=== PATIENT | female | born 1975 | race Caucasian/White ===

== ENCOUNTER 2023-02-17 09:30 | Outpatient (OUT) | payer OTHER, SELFPAY ==
--- NOTE | 2023-02-17 09:26 | XR_ITS ---
The [address] [address] Patient Name: EDMOND OROSCO MRN: [id number] date: 1975 Sex: F Assigned Patient Location: [facility] Current Patient Location: [facility] Accession/Order Number: [id number] Exam Date: 02/17/2023 09:26 Report Date: 02/17/2023 14:17 At the request of: CAREY SUTTON Procedure: XR ankle LT min 3V PROCEDURE: XR ankle LT min 3V, XR foot LT min 3V HISTORY: LEFT ANKLE PAIN ; lateral ankle and foot pain; no known injury COMPARISON: None. FINDINGS: BONES:Uniform, smooth appearance of the ankle joint. Mild degenerative changes of the tarsal-metatarsal joints. Prominent plantar arch. SOFT TISSUES:Small calcifications plantar-lateral to the cuboid; accessory ossicles versus sequela of remote injury. EFFUSION:None visible. OTHER: Negative. IMPRESSION: 1. No acute bone abnormality of the left ankle or foot. 2. Mild degenerative changes of the midfoot and prominent plantar arch. Electronically authenticated by: YASMINE TRUIJLLO Date: 02/17/2023 14:17
--- NOTE | 2023-02-17 09:26 | XR_ITS ---
The [address] [address] Patient Name: EDMOND OROSCO MRN: [id number] date: 1975 Sex: F Assigned Patient Location: [facility] Current Patient Location: [facility] Accession/Order Number: [id number] Exam Date: 02/17/2023 09:26 Report Date: 02/17/2023 14:17 At the request of: CAREY SUTTON Procedure: XR foot LT min 3V PROCEDURE: XR ankle LT min 3V, XR foot LT min 3V HISTORY: LEFT ANKLE PAIN ; lateral ankle and foot pain; no known injury COMPARISON: None. FINDINGS: BONES:Uniform, smooth appearance of the ankle joint. Mild degenerative changes of the tarsal-metatarsal joints. Prominent plantar arch. SOFT TISSUES:Small calcifications plantar-lateral to the cuboid; accessory ossicles versus sequela of remote injury. EFFUSION:None visible. OTHER: Negative. IMPRESSION: 1. No acute bone abnormality of the left ankle or foot. 2. Mild degenerative changes of the midfoot and prominent plantar arch. Electronically authenticated by: YASMINE TRUJILLO Date: 02/17/2023 14:17
== END 2023-02-17 09:31 ==
LOC: RAD 02-22 10:20
PROVIDERS: Family Provider Family Medicine; PCP Physician Assistant; Visit Provider Physician Assistant
DX: M25.572 Pain in left ankle and joints of left foot (principal)
CPT/HCPCS: 73610; 73630

== ENCOUNTER 2023-08-18 13:24 | Outpatient (OUT) | payer OTHER, SELFPAY ==
--- NOTE | 2023-08-18 | XR_ITS ---
The [address] [address] Patient Name: EDMOND OROSCO MRN: [id number] date: 1975 Sex: F Assigned Patient Location: [facility] Current Patient Location: Accession/Order Number: [id number] Exam Date: 08/18/2023 13:40 Report Date: 08/19/2023 01:46 At the request of: CAREY SUTTON Procedure: XR ankle LT min 3V PROCEDURE: XR ankle LT min 3V, XR foot LT min 3V HISTORY: LEFT ANKLE PAIN , lateral left foot pain COMPARISON: XR left ankle and foot 02/17/2023 FINDINGS: BONES:Stable tiny 2 mm ossification adjacent tip of lateral malleolus favoring sequela of remote injury/heterotopic bone formation. No acute fracture or healing fracture. No significant degenerative joint disease of the ankle joint or foot. SOFT TISSUES:No visible soft tissue swelling. EFFUSION:None visible. OTHER: Negative. XR/XR ankle LT min 3V IMPRESSION: 1. No acute or suspicious findings to account for patient's symptoms. Electronically authenticated by: YASMINE TRUJILLO Date: 08/19/2023 01:46
--- NOTE | 2023-08-18 | XR_ITS ---
The [address] [address] Patient Name: EDMOND OROSCO MRN: [id number] date: 1975 Sex: F Assigned Patient Location: [facility] Current Patient Location: Accession/Order Number: [id number] Exam Date: 08/18/2023 13:40 Report Date: 08/19/2023 01:46 At the request of: CAREY SUTTON Procedure: XR foot LT min 3V PROCEDURE: XR ankle LT min 3V, XR foot LT min 3V HISTORY: LEFT ANKLE PAIN , lateral left foot pain COMPARISON: XR left ankle and foot 02/17/2023 FINDINGS: BONES:Stable tiny 2 mm ossification adjacent tip of lateral malleolus favoring sequela of remote injury/heterotopic bone formation. No acute fracture or healing fracture. No significant degenerative joint disease of the ankle joint or foot. SOFT TISSUES:No visible soft tissue swelling. EFFUSION:None visible. OTHER: Negative. XR/XR foot LT min 3V IMPRESSION: 1. No acute or suspicious findings to account for patient's symptoms. Electronically authenticated by: YASMINE TRUJILLO Date: 08/19/2023 01:46
== END 2023-08-18 13:25 | disposition home or self-care (01) ==
LOC: RAD 13:24
PROVIDERS: Family Provider Family Medicine; Visit Provider Podiatrist Foot & Ankle Surgery
DX: M25.572 Pain in left ankle and joints of left foot (principal); S93.492S Sprain of other ligament of left ankle, sequela
CPT/HCPCS: 73610; 73630

== ENCOUNTER 2024-02-08 09:05 | Outpatient (OUT) | payer OTHER, SELFPAY ==
--- NOTE | 2024-02-08 09:09 | ECG_ITS ---
The [facility] Test Date: 2024-02-08 Pat Name: JAVIER OROSCO Department: Room: - Gender: Female [employer]: : 1975 Requested By: CAREY SUTTON Order Number: [id number] Reading MD: DOC ALVAREZ Measurements Intervals [place] Rate: 70 P: 55 PA: 139 QRS: 47 QRSD: 90 T: 28 QT: 391 QTc: 424 Interpretive Statements SINUS RHYTHM No previous ECG available for comparison Electronically Signed On 02-09-2024 6:51:20 EDT by DOC ALVAREZ
--- NOTE | 2024-02-08 09:43 | PM.PRESUREVA ---
History of Present Illness History of Present Illness Chief complaint: PRE ADMIT TESTING Narrative: Patient presents for preadmission testing. The patient reports a long history of left ankle and foot pain with some instability. She states she does use her brace daily and has gone through physical therapy. 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 The patient states she takes meloxicam daily to help with her discomfort. She denies numbness, tingling, weakness, or any other complaints. Review of Systems ROS Narrative REVIEW OF SYSTEMS: Negative except as stated in HPI, ten or more systems reviewed. Constitutional: No fever, chills, weakness ENT: No sore throat or epistaxis Cardiovascular: No edema, chest pain, palpitations, or activity intolerance Respiratory: No shortness of breath, cough, or wheezing Gastrointestinal: No abdominal pain, constipation, diarrhea, or vomiting Genitourinary: No dysuria or hematuria Neurological: No numbness, tingling, weakness, or headache Psychiatric: No mood changes [facility] Medical History (Updated 02/08/24 @ 09:25 by Nabila Perkins NP) Anxiety ?F41.9 - Anxiety disorder, unspecified (ICD-10) ADHD ?F90.9 - Attention-deficit hyperactivity disorder, unspecified type (ICD-10) COVID-19 ?U07.1 - COVID-19 (ICD-10) Heartburn ?R12 - Heartburn (ICD-10) Postoperative nausea and vomiting ?R11.2 - Nausea with vomiting, unspecified (ICD-10) ?Z98.890 - Other specified postprocedural states (ICD-10) Frozen shoulder ?M75.00 - Adhesive capsulitis of unspecified shoulder (ICD-10) Left foot pain ?M79.672 - Pain in left foot (ICD-10) Left ankle pain ?M25.572 - Pain in left ankle and joints of left foot (ICD-10) Contracture, left ankle ?M24.572 - Contracture, left ankle (ICD-10) Strain of muscle(s) and tendon(s) of peroneal muscle group at lower leg level, left leg, sequela ?S86.312S - Strain of muscle(s) and tendon(s) of peroneal muscle group at lower leg level, left leg, sequela (ICD-10) Ankle instability ?M25.373 - Other instability, unspecified ankle (ICD-10) Sprain of left ankle ?S93.402A - Sprain of unspecified ligament of left ankle, initial encounter (ICD-10) Plantar fascial fibromatosis ?M72.2 - Plantar fascial fibromatosis (ICD-10) Muscle disorder ?M62.9 - Disorder of muscle, unspecified (ICD-10) Valgus deformity, not elsewhere classified, left ankle ?M21.072 - Valgus deformity, not elsewhere classified, left ankle (ICD-10) Acquired deformity of left lower leg ?M21.962 - Unspecified acquired deformity of left lower leg (ICD-10) Varus deformity, not elsewhere classified, left ankle ?M21.172 - Varus deformity, not elsewhere classified, left ankle (ICD-10) Surgical History (Updated 02/08/24 @ 09:25 by Nabila Perkins NP) History of arthroscopy of shoulder ?Z98.890 - Other specified postprocedural states (ICD-10) History of tubal ligation ?Z98.51 - Tubal ligation status (ICD-10) History of appendectomy ?Z90.49 - Acquired absence of other specified parts of digestive tract (ICD-10) Family History (Updated 02/08/24 @ 09:28 by Nabila Perkins NP) Other Family history of DVT Family history of diabetes mellitus Family history of hypertension Family history of myocardial infarction Social History (Updated 02/08/24 @ 09:21 by Nabila Perkins NP) Within the past year, how often did you have a drink containing alcohol: 2-4 times a month Smoking status: Never smoker Non-prescribed substance use: denies use 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, 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 Highest level of school completed/degree received: high school graduate Meds Home Medications and Allergies Home Medications ?Medication ?Instructions ?Recorded ?Confirmed ?Type dextroamphetamine-amphetamine 10 10 mg PO DAILY PRN for focus 02/08/24 02/08/24 History mg tablet meloxicam 15 mg tablet 15 mg PO DAILY 02/08/24 02/08/24 History venlafaxine 150 mg 150 mg PO DAILY 02/08/24 02/08/24 History capsule,extended release 24 hr Allergies Allergy/AdvReac Type Severity Reaction Status Date / Time Sulfa (Sulfonamide Allergy Hives Verified 02/08/24 09:18 Antibiotics) Exam Narrative Exam Narrative: Constitutional: Awake, alert, comfortable, well-appearing, nontoxic, interactive, vital signs as charted Head: Normocephalic, atraumatic Neck: Supple, normal appearance, normal range of motion, no meningeal signs, no lymphadenopathy Respiratory: No respiratory distress, breath sounds clear Cardiovascular: Regular rate and rhythm, strong and regular heart tones Musculoskeletal: Ankle brace in place left ankle, tenderness with palpation along the lateral aspect of the left ankle, good capillary refill, sensation intact Skin: No rashes or induration, no lesions, only visible skin inspected Neuro: No neurological deficits, normal sensation Psychiatric: Oriented ?3, normal affect Assessment and Plan Assessment and Plan (1) Varus deformity, not elsewhere classified, left ankle: (2) Acquired deformity of left lower leg: (3) Valgus deformity, not elsewhere classified, left ankle: (4) Muscle disorder: (5) Plantar fascial fibromatosis: (6) Sprain of left ankle: (7) Ankle instability: (8) Strain of muscle(s) and tendon(s) of peroneal muscle group at lower leg level, left leg, sequela: (9) Contracture, left ankle: (10) Left ankle pain: (11) Left foot pain: Plan Left foot reconstruction with osteotomies, soft tissue balancing, tendon or ligament repairs, and bone graft as needed scheduled with Dr. Townsend February 17, 2024.
== END 2024-02-08 09:06 | disposition home or self-care (01) ==
PROVIDERS: Family Provider Family Medicine; Visit Provider Podiatrist Foot & Ankle Surgery
DX: Z01.810 Encounter for preprocedural cardiovascular examination (principal); Z01.818 Encounter for other preprocedural examination; M21.172 Varus deformity, not elsewhere classified, left ankle; M21.072 Valgus deformity, not elsewhere classified, left ankle
CPT/HCPCS: 93005; G0463

== ENCOUNTER 2024-02-17 06:13 | Day surgery (SDC) | payer OTHER, SELFPAY ==
[2024-02-08 09:42] VITALS: BP 132/80; PULSE 90; TEMP 36.3; O2SAT 96; BMI 41.1
[2024-02-17] VITALS (9 sets, daily range): BP systolic 127–153; BP diastolic 7–94; PULSE 60–85; TEMP 36.5–36.7; O2SAT 88–97; BMI 40.7
--- NOTE | 2024-02-17 | FL_ITS ---
[address] [address] Patient Name: JAVIER OROSCO MRN: [id number] date: 1975 Sex: F Assigned Patient Location: [facility] Current Patient Location: Accession/Order Number: [id number] Exam Date: 02/17/2024 09:23 Report Date: 02/18/2024 06:04 At the request of: CAREY SUTTON Procedure: FL fluoroscopy <1hr NON-READ EXAM: FL fluoroscopy <1hr NON-READ HISTORY: TECHNIQUE: FINDINGS: Please see Operative Report. Electronically authenticated by: RADIOLOGIST NO Date: 02/18/2024 06:04
--- OUTSIDE RECORDS SUMMARY | 2024-02-17 06:16 | XMS_ITS | CCD ---
Author Organization [facility] Care Team Providers Care Soda Clerk Name Role Phone Carey Courtney Primary Care Physician [phone] CAREY COURTNEY Attending Unavailable NONE, XXXX Attending Unavailable NONE, XXXX Referring Unavailable CAREY TOWNSEND Attending Unavailable CAREY TOWNSEND Referring Unavailable CAREY TOWNSEND Admitting Unavailable Remington Espitia Attending Unavailable Remington Espitia Attending Unavailable Eliceo Coleman Attending Unavailable Eliceo Coleman Attending Unavailable Allergies Allergy Classification Reported Allergen(s) Allergy Type Date of Onset Reaction(s) Facility (20 sources) Sulfonamides (Antibiotic); Translations: [sulfa drugs] Drug allergy Weal (disorder) [facility] Medications Current Medications Medication Drug Class(es) Dates Sig (Normalized) Sig (Original) acetaminophen 325 mg / oxyCODONE hydrochloride 5 mg oral tablet (3 sources) Opioid Agonist Start: 10-21-2015 Percocet 325 mg-5 mg Tab 2 tab(s), Oral, q4hr, 50 tab(s), Refill(s) 0 Start Date: 10/21/15 Status: Ordered benzonatate 100 mg oral capsule (2 sources) Non-narcotic Antitussive Start: 02-12-2024 End: 02-19-2024 take 1 capsule by mouth three times daily Tessalon 100 mg Cap 100 mg = 1 cap(s), Oral, TID, X 7 day(s), # 21 cap(s), Refills(s) 0, Pharmacy: [facility], 172, cm, 02/12/24 13:06:00 EDT, Height/Length Dosing, 121, kg, 02/12/24 13:06:00 EDT, Weight Dosing Start Date: 02/12/24 Stop Date: 02/19/24 Status: Ordered Start: 05-08-2023 End: 05-15-2023 take 1 capsule by mouth three times daily Tessalon 100 mg Cap 100 mg = 1 cap(s), Oral, TID, X 7 day(s), # 21 cap(s), Refills(s) 0, Pharmacy: [facility], 172, cm, 05/08/23 13:30:00 EDT, Height/Length Dosing, 115.5, kg, 05/08/23 13:30:00 EDT, Weight Dosing Start Date: 05/08/23 Stop Date: 05/15/23 Status: Ordered brompheniramine maleate 0.4 mg/ml / dextromethorphan hydrobromide 2 mg/ml / pseudoephedrine hydrochloride 6 mg/ml oral solution (3 sources) alpha-Adrenergic Agonist, Uncompetitive G-leohii-N-aspartate Receptor Antagonist, Sigma-1 Agonist Start: 05-16-2023 take 5 mL by mouth four times daily Bromfed DM oral syrup 5 mL, Oral, QID for cold symptoms, 200 mL, Refill(s) 0, [facility], 172, cm, 05/16/23 15:12:00 EDT, Height/Length Dosing, 115.5, kg, 05/16/23 15:12:00 EDT, Weight Dosing Start Date: 05/16/23 Status: Ordered diclofenac sodium 0.01 mg/mg topical gel (1 source) Nonsteroidal Anti-inflammatory Drug Start: 08-10-2023 End: 08-17-2023 apply 2 g topically four times daily for pain, then apply 8 g topically once daily for pain Voltaren Gel 1% Gel 2 gm, Topical, QID for pain for 7 day(s), 100 gm, Refill(s) 0, not to exceed 8 grams/day/single joint of upper extremities, [facility], 173, cm, 08/10/23 12:00:00 EST, Height/Length Dosing, 100, kg, 08/10/23 12:00:00 EST, Weight Dosing Start Date: 08/10/23 Stop Date: 08/17/23 Status: Ordered doxycycline hyclate 100 mg oral capsule (1 source) Tetracycline-class Drug Start: 05-08-2023 End: 05-15-2023 take 1 capsule by mouth twice daily doxycycline hyclate 100 mg Cap 100 mg = 1 cap(s), Oral, BID, X 7 day(s), # 14 cap(s), Refills(s) 0, Pharmacy: [facility], 172, cm, 05/08/23 13:30:00 EDT, Height/Length Dosing, 115.5, kg, 05/08/23 13:30:00 EDT, Weight Dosing Start Date: 05/08/23 Stop Date: 05/15/23 Status: Ordered Euro Folic Acid (3 sources) Start: 10-15-2015 take 1 tablet by mouth once daily Euro Folic Acid 1 tab, Oral, Daily, Refills(s) 0, Other (see comment) Start Date: 10/15/15 Status: Ordered fluticasone propionate 0.05 mg/actuat metered dose nasal spray (1 source) Corticosteroid Start: 02-12-2024 End: 02-19-2024 take 1 spray(s) nasal route twice daily Flonase 0.05 mg/inh [place] 1 spray(s), Nasal, BID for 7 day(s), 16 gm, Refill(s) 0, each nostril, [facility], 172, cm, 02/12/24 13:06:00 EDT, Height/Length Dosing, 121, kg, 02/12/24 13:06:00 EDT, Weight Dosing Start Date: 02/12/24 Stop Date: 02/19/24 Status: Ordered hydroCHLOROthiazide 25 mg oral tablet (19 sources) Thiazide Diuretic Start: 10-15-2015 hydrochlorothiazide 25 mg Tab 25 mg = 1 tab(s), Oral, PRN Edema, Refills(s) 0, diuretic/water pill Start Date: 10/15/15 Status: Ordered magnesium oxide 400 mg oral tablet (3 sources) Start: 10-15-2015 take 1 tablet by mouth once daily magnesium oxide 400 mg Tab 400 mg = 1 tab(s), Oral, Daily, Refills(s) 0, Other (see comment) Start Date: 10/15/15 Status: Ordered predniSONE 10 mg oral tablet (3 sources) Start: 08-10-2023 predniSONE 10 mg Tab See Instructions, 6 PO x 3 days then 4 PO x 5 days then 2 PO x 5 days then 1 PO x 5 days then 1/2 PO x 5 days, # 58 tab(s), Refills(s) 0, Pharmacy: [facility], 173, cm, 08/10/23 12:00:00 EST, Height/Length Dosing, 100, kg, 08/10/23 12:00:00 EST, Weight Dosing Start Date: 08/10/23 Status: Ordered Start: 05-08-2023 End: 05-13-2023 take 2 tablets by mouth once daily predniSONE 20 mg Tab 40 mg = 2 tab(s), Oral, Daily, X 5 day(s), # 10 tab(s), Refills(s) 0, Pharmacy: [facility], 172, cm, 05/08/23 13:30:00 EDT, Height/Length Dosing, 115.5, kg, 05/08/23 13:30:00 EDT, Weight Dosing Start Date: 05/08/23 Stop Date: 05/13/23 Status: Ordered 24 hr venlafaxine 75 mg extended release oral capsule (16 sources) Serotonin and Norepinephrine Reuptake Inhibitor Start: 04-24-2022 take 1 capsule by mouth once daily venlafaxine 75 mg Cap-ER 75 mg = 1 cap(s), Oral, Daily, Refills(s) 0 Start Date: 04/24/22 Status: Ordered Completed/Discontinued Medications Medication Drug Class(es) Dates Sig (Normalized) Sig (Original) Albuterol (Eqv-ProAir HFA) 90 mcg/inh inhalation aerosol (3 sources) Start: 05-16-2023 take 1 dose by inhalation every four hours Albuterol (Eqv-ProAir HFA) 90 mcg/inh inhalation aerosol 2 puff(s), Inhalation, q4hr Cough and Congestion, 1 EA, Refill(s) 0, [facility], 172, cm, 05/16/23 15:12:00 EDT, Height/Length Dosing, 115.5, kg, 05/16/23 15:12:00 EDT, Weight Dosing Start Date: 05/16/23 Status: Ordered Problems Problem Classification Problem Date Documented Date Episodic/Chronic Acute bronchitis (1 source) Acute bronchitis; Translations: [Acute bronchitis, unspecified] Onset: 05-16-2023 Episodic Chronic obstructive pulmonary disease and bronchiectasis (1 source) Bronchitis; Translations: [Bronchitis, not specified as acute or chronic] Onset: 05-08-2023 Episodic E Codes: Fall (1 source) Fall; Translations: [Unspecified fall, initial encounter] Onset: 05-26-2022 Episodic Epilepsy; convulsions (19 sources) Febrile convulsion 10-15-2015 Episodic Mood disorders (16 sources) Depressive disorder 04-24-2022 Chronic Nervous system congenital anomalies (16 sources) Cerebral ventriculomegaly 04-24-2022 Chronic Other and unspecified benign neoplasm (16 sources) 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 Other and unspecified benign neoplasm (1 source) Polyp of colon; Translations: [Polyp of colon] Onset: 05-08-2022 Episodic Other connective tissue disease (19 sources) Disorder of rotator cuff 10-15-2015 Episodic Other connective tissue disease (19 sources) Impingement syndrome of shoulder region 10-15-2015 Episodic Comment on above: left shoulder left shoulder Other connective tissue disease (1 source) Plantar fascial fibromatosis; Translations: [Plantar fascial fibromatosis] Onset: 08-10-2023 Episodic Other diseases of veins and lymphatics (1 source) Lymphedema; Translations: [Lymphedema, not elsewhere classified] Onset: 06-22-2022 Chronic Other diseases of veins and lymphatics (1 source) Compression of vein; Translations: [Compression of vein] Onset: 06-22-2022 Episodic Other ear and sense organ disorders (16 sources) 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 Other injuries and conditions due to external causes (1 source) Injury of head; Translations: [Unspecified injury of head, initial encounter] Onset: 05-26-2022 Episodic Other nervous system disorders (16 sources) Chronic pain syndrome 04-24-2022 Chronic Other nutritional; endocrine; and metabolic disorders (16 sources) Body mass index 30+ - obesity 04-27-2022 Chronic Other nutritional; endocrine; and metabolic disorders (1 source) Obese class II; Translations: [Body mass index (BMI) 39.0-39.9, adult] Onset: 05-08-2023 Chronic Other nutritional; endocrine; and metabolic disorders (1 source) Body mass index 40+ - severely obese; Translations: [Body mass index (BMI) 40.0-44.9, adult] Onset: 02-12-2024 Chronic Other screening for suspected conditions (not mental disorders or infectious disease) (1 source) Screening for malignant neoplasm of colon done; Translations: [Encounter for screening for malignant neoplasm of colon] Onset: 04-27-2022 Episodic Other upper respiratory infections (1 source) Acute upper respiratory infection; Translations: [Acute upper respiratory infection, unspecified] Onset: 02-12-2024 Episodic Sprains and strains (1 source) Sprain of wrist; Translations: [Unspecified sprain of unspecified wrist, initial encounter] Onset: 05-27-2022 Episodic Superficial injury; contusion (1 source) Abrasion of head; Translations: [Abrasion of other part of head, initial encounter] Onset: 05-26-2022 Episodic Unclassified (16 sources) Patient encounter status 04-27-2022 Varicose veins of lower extremity (1 source) Pain due to varicose veins of lower extremity; Translations: [Varicose veins of unspecified lower extremity with pain] Onset: 05-14-2022 Episodic Results Test Name Value Interpretation Reference Range Facility Family Medicine Office/Clini c Noteon 02-13-2024 Family Medicine Office/Clinic Note Chief Complaint cough, chest congestion, cold symptoms HPI Staff 48 year old female presents with cough, chest congestion, sinus drainage symptoms for 2 days History of Present Illness I have reviewed and verified the staff HPI to be accurate for this encounter. Portions of this record have been created with voice recognition software. Occasional wrong-word or ?fsxpo-o-cqyv? substitutions may have occurred due to the inherent limitations of voice recognition software. 48-year-old female presents to [facility] care today with chief complaint of cough nasal congestion sinus drainage. Onset started x 2 days ago. Patient denies any recent sick contacts or recent travel denies any fever chills headache or bodyaches with her symptoms. Denies any belly pain nausea vomiting or diarrhea. She denies any known exposure to COVID-19 or influenza. Patient states she has concern as she is scheduled on for a pretty vague big states that following the procedure she will be laid out for approximately 8 weeks. Ankle reconstructive surgery with Dr. Townsend in [place]. Patient does not wish to be sick or have anything occur for this procedure in which she would not be able to have it done. She denies any history of seasonal allergies denies history of asthma denies wheezing chest pain shortness of breath or difficulty breathing with her cough. States cough is dry nonproductive. Patient has no other concerns at this time. Medication allergy to sulfa Review of Systems PHQ Score Initial Depression Screen Score: 0 SCORE ROS negative unless otherwise stated in HPI. Physical Exam Vitals & Measurements T: 36.6 ?C(Oral) HR: 81(Peripheral) BP: 138/86 SpO2: 98% HT: 68 in HT: 172 cm WT: 121 kg WT: 266.2 lb BMI: 40.9 General: Very pleasant morbidly obese female, no acute distress. Eyes: Bilateral conjunctiva within normal limits no injection Ears: Bilateral TMs are within normal limits no erythema or bulging. Bilateral external auditory canals are within normal limits no erythema or edema Nose: mild nasal mucosa inflammation and edema no active drainage deformities or lesions Mouth: Moist mucous membranes. Uvula is midline. No acute tonsillar erythema edema or exudate. No signs of peritonsillar abscess. No trismus or drooling. Neck: no adenopathy Lungs: Lung sounds are clear bilaterally. No wheezing rhonchi or crackles on exam. Cardio: S1, S2, regular rhythm. No murmurs gallops or rubs. Abdomen: not assessed Musculoskeletal: not assessed Extremity: not assessed Neurologic: not assessed Skin: not assessed Mental Status: Alert and oriented x3. Normal mood and affect Assessment/Plan Spoke with patient in regards to symptom duration x 2 days. I understand that she has an upcoming ankle surgery however I believe patient's symptoms to be viral in nature at this time. Discussed with patient if she has any significant worsening of symptoms to call on Wednesday as I am back in the office to discuss further management. Discussed prescription for Flonase nasal spray twice daily x 7 days duration in addition to a cough suppressant Tessalon 1 tablet every 8 hours as needed for cough and congestion with close follow-up with primary care provider. Patient may contact their office on Wednesday morning to schedule a follow-up appointment. Patient will seek ER for reevaluation if she develops any chest pain shortness of breath or difficulty breathing in which patient agrees and understands plan of care. otherwise she may return if needed. 1. Viral URI with cough (J06.9: Acute upper respiratory infection, unspecified) Discussed exam and hx are consistent with viral illness. Advised of typical duration. Discussed antibiotics unfortunately do not treat viral illnesses, it will take time to run course- usually 7-14 days. Fluids/rest encouraged, PRN tylenol/ibuprofen for any pain. May use flonase, and tessalon for symptomatic tx. Follow up with PCP if not improving over next 7-10 days or significantly worsening symptoms. Patient verbalized understanding of tx plan. 2. BMI 40.0-44.9, adult (Z68.41: Body mass index [BMI] 40.0-44.9, adult) The standard range for ages 18 and older is >=18.5 and < 25 kg/m2. Your BMI today was above this range, this falls in the overweight to obese category and there are medical benefits to weight loss. We can offer counselling, referral, and/or medical support in addressing this problem. Your BMI and weight management will be followed at subsequent visits. Follow-up With When Contact Information Dusty ALVAREZ, aCrey Navarro, [address] [address]- Additional Instructions: Patient Education BMI for Adults Upper Respiratory Infection, Adult Problem List/Past Medical History Ongoing Acoustic neuroma BMI 39.0-39.9,adult Cerebral ventriculomegaly Chronic pain syndrome Depression Mixed conductive and sensorineural hearing loss Screening for malignant neoplasm of colon Historical No qualifying data Pro (more content not included)... [facility] Comment on above: Result Comment: Elec tronically Signed By: Jared MARTINEZ, Eliceo Archer\.br\Date and Time Signed: 02/13/24 20:37 EDT Patient Educationon 02-13-20 24 Patient Education Infectious Disease Upper Respiratory Infection, Adult An upper respiratory infection (URI) is a common viral infection of the nose, throat, and upper air passages that lead to the lungs. The most common type of URI is the common cold. URIs usually get better on their own, without medical treatment. What are the causes? A URI is caused by a virus. You may catch a virus by: ? Breathing in droplets from an infected person's cough or sneeze. ? Touching something that has been exposed to the virus (is contaminated) and then touching your mouth, nose, or eyes. What increases the risk? You are more likely to get a URI if: ? You are very young or very old. ? You have close contact with others, such as at work, school, or a health care facility. ? You smoke. ? You have long-term (chronic) heart or lung disease. ? You have a weakened disease-fighting system (immune system). ? You have nasal allergies or asthma. ? You are experiencing a lot of stress. ? You have poor nutrition. What are the signs or symptoms? A URI usually involves some of the following symptoms: ? Runny or stuffy (congested) nose. ? Cough. ? Sneezing. ? Sore throat. ? Headache. ? Fatigue. ? Fever. ? Loss of appetite. ? Pain in your forehead, behind your eyes, and over your cheekbones (sinus pain). ? Muscle aches. ? Redness or irritation of the eyes. ? Pressure in the ears or face. How is this diagnosed? This condition may be diagnosed based on your medical history and symptoms, and a physical exam. Your health care provider may use a swab to take a mucus sample from your nose (nasal swab). This sample can be tested to determine what virus is causing the illness. How is this treated? URIs usually get better on their own within 7?10 days. Medicines cannot cure URIs, but your health care provider may recommend certain medicines to help relieve symptoms, such as: ? Vtob-izh-tzywryx cold medicines. ? Cough suppressants. Coughing is a type of defense against infection that helps to clear the respiratory system, so take these medicines only as recommended by your health care provider. ? Fever-reducing medicines. Follow these instructions at home: Activity ? Rest as needed. ? If you have a fever, stay home from work or school until your fever is gone or until your health care provider says your URI cannot spread to other people (is no longer contagious). Your health care provider may have you wear a face mask to prevent your infection from spreading. Relieving symptoms ? Gargle with a mixture of salt and water 3?4 times a day or as needed. To make salt water, completely dissolve ??1 tsp (3?6 g) of salt in 1 cup (237 mL) of warm water. ? Use a cool-mist humidifier to add moisture to the air. This can help you breathe more easily. Eating and drinking ? Drink enough fluid to keep your urine pale yellow. ? Eat soups and other clear broths. General instructions ? Take elsr-zgy-qaflyjf and prescription medicines only as told by your health care provider. These include cold medicines, fever reducers, and cough suppressants. ? Do not use any products that contain nicotine or tobacco. These products include cigarettes, chewing tobacco, and vaping devices, such as e-cigarettes. If you need help quitting, ask your health care provider. ? Stay away from secondhand smoke. ? Stay up to date on all immunizations, including the yearly (annual) flu vaccine. ? Keep all follow-up visits. This is important. How to prevent the spread of infection to others URIs can be contagious. To prevent the infection from spreading: ? Wash your hands with soap and water for at least 20 seconds. If soap and water are not available, use hand element burner. ? Avoid touching your mouth, face, eyes, or nose. ? Cough or sneeze into a tissue or your sleeve or elbow instead of into your hand or into the air. Contact a health care provider if: ? You are getting worse instead of better. ? You have a fever or chills. ? Your mucus is brown or red. ? You have yellow or brown discharge coming from your nose. ? You have pain in your face, especially when you bend forward. ? You have swollen neck glands. ? You have pain while swallowing. ? You have white areas in the back of your throat. Get help right away if: ? You have shortness of breath that gets worse. ? You have severe or persistent: ? Headache. ? Ear pain. ? Sinus pain. ? Chest pain. ? You have chronic lung disease along with any of the following: ? Making high-pitched whistling sounds when you breathe, most often when you breathe out (wheezing). ? Prolonged cough (more than 14 days). ? Coughing up blood. ? A change in your usual mucus. ? You have a stiff neck. ? You have changes in your: ? Vision. ? Hearing. ? Thinking. ? Mood. These symptoms may be an emergency. Get help (more content not included)... [facility] Ambulatory Visit Summaryon 0 6-01-2024 Ambulatory Visit Summary JAVIER OROSCO :1975 Visit Date:02/12/2024 Ambulatory Visit Instructions Your Diagnosis Viral URI with cough BMI 40.0-44.9, adult Your Care Team Attending Physician - Jared MARTINEZ, Eliceo Archer Primary Care Physician - Dusty ALVAREZ, Carey Navarro This Is Your Medications List hydrochlorothiazide (hydrochlorothiazide 25 mg Tab) venlafaxine (venlafaxine 75 mg Cap-ER) Procedures Performed Colonoscopic polypectomy (05/08/2022), Left shoulder scope (10/22/2015), Appendectomy, essure. Discharge Vitals Temperature (Oral) 36.6 ?C Heart Rate (Peripheral) 81 Blood Pressure 138/86 Height 172 cm Height 68 in Weight 121 kg Weight 266.2 lb BMI 40.9 Medications What How Much When Instructions Unchanged hydrochlorothiazide (hydrochlorothiazide 25 mg Tab) 1 Tablets By Mouth As needed for Edema Unchanged venlafaxine (venlafaxine 75 mg Cap-ER) 1 Capsules By Mouth Every day Allergies sulfa drugs (Hives) Problems Ongoing - Any problem that you are currently receiving treatment for. Acoustic neuroma BMI 39.0-39.9,adult Cerebral ventriculomegaly Chronic pain syndrome Depression Mixed conductive and sensorineural hearing loss Screening for malignant neoplasm of colon Patient Survey You may receive a survey via text or e-mail asking about your office visit. Please share your experience with us by completing your survey. We appreciate your feedback and thank you for choosing us for your care. [facility] MRI Ankle w/o Contrast Lefto n 08-24-2023 MRI Ankle w/o Contrast Left Exam Date/Time: 08/23/2023 21:17 EST Reason for Exam: LEFT PERONEAL TENDON TEAR Report IMPRESSION: NEAR FULL-THICKNESS TEAR OF PERONEUS LONGUS TENDON. EXAM: MRI Ankle w/o Contrast Left HISTORY: Ankle pain since stepping down and hearing a pop. TECHNIQUE: Multisequence multiplanar MRI of the ankle was performed without contrast COMPARISON: Foot radiographs 08/10/2023 FINDINGS: Achilles tendon is intact. The visualized plantar fascia is intact and is without thickening or nodularity. The tibialis posterior, flexor hallucis longus, and flexor digitorum longus tendons are intact. No space-occupying lesion within the tarsal tunnel. There are full-thickness tear of peroneus longus tendon at and distal to the level of the articulation of the calcaneus with cuboid superimposed on mild tendinosis. Mild peroneus brevis tendinosis. Regional soft tissue edema. No fluid surrounds these tendons. Extensor tendons are intact. The anterior and posterior tibiofibular ligaments, anterior and posterior talofibular ligaments, and calcaneofibular ligament are intact. Superficial and deep fibers of the deltoid ligament are intact. Spring ligament is intact. Sinus tarsi fat is preserved. No well defined or measurable cartilage defect of the tibial plafond, talar dome, or subtalar joint. No ankle joint effusion. No evidence of fracture or stress reaction of the visualized bones. Ordering Provider: , FINAL REPORT Dictated: 08/24/2023 2:25 pm Tarun Perdomo DO Signed (Electronic Signature): 08/24/2023 2:25 pm Signed by: Tarun Perdomo DO Transcribed by: BELLA Technologist: HUNTER Technical Comments None [facility] Consent for Treatmenton 08-13 Consent for Treatment [id number] F [facility] RAD - MRI Screening Formon 1 10-24-2022 RAD - MRI Screening Form [id number] [facility] Physician Orderon 08-20-2023 Physician Order [id number]#1.00TIF F [facility] Consent for Treatmenton 07-15 Consent for Treatment [id number] F [facility] Discharge Instructionson Discharge Instructions [id number] FF [facility] ED Clinical Summaryon 2022 ED Clinical Summary (Inserted Image. Linda ble to display) [address] [address] ED Clinical Summary Person Information Name: JAVIER OROSCO Indira/New_Gonzalo Age: 47 Years : 1975 Sex: Female Language: Indian PCP: Carey Courtney MD Marital Status: Phone: [phone] Visit Id: Visit Reason: Foot injury - Minor; Foot pain-swelling; LEFT FOOT PAIN AND SWELL Speciality: Acuity: 4 Enc Type: Emergency Med Service: Emergency Arrival: 08/10/2023 11:52:25 Discharge: 08/10/2023 14:19:51 LOS: 000 02:27 Checkin: 08/10/2023 11:52:25 Checkout: 08/10/2023 14:19:51 Dispo Type: Home (Routine DC) EVENTS: Event Name Event Status Request Date/Time Start Date/Time Complete Date/Time Arrive Complete 08/10/2023 11:52:25 08/10/2023 11:52:25 08/10/2023 11:52:25 Document Home Meds Request 08/10/2023 11:52:25 Triage Complete 08/10/2023 11:52:25 08/10/2023 12:00:36 08/10/2023 12:00:36 Registration Complete 08/10/2023 11:57:38 08/10/2023 11:57:38 08/10/2023 11:57:38 Reg Complete Request 08/10/2023 11:57:38 Reg Bed Request Complete 08/10/2023 11:57:38 08/10/2023 11:57:38 08/10/2023 11:57:38 X-Ray Complete 08/10/2023 12:00:59 08/10/2023 12:05:05 08/10/2023 12:24:48 Dr Exam Complete 08/10/2023 12:01:34 08/10/2023 12:01:34 08/10/2023 12:01:34 Registration Start 08/10/2023 12:01:34 08/10/2023 13:47:29 Dr Exam Complete 08/10/2023 12:05:36 08/10/2023 12:05:36 08/10/2023 12:05:36 Dr Exam Complete 08/10/2023 12:13:58 08/10/2023 12:13:58 08/10/2023 12:13:58 Wet Read Request 08/10/2023 12:24:48 Bed Assign Complete 08/10/2023 13:47:29 08/10/2023 13:47:29 08/10/2023 13:47:29 RN Exam Complete 08/10/2023 13:47:29 08/10/2023 13:51:31 08/10/2023 13:51:31 Meds Admin Complete 08/10/2023 14:06:38 08/10/2023 14:16:37 Discharge Complete 08/10/2023 14:08:09 08/10/2023 14:19:56 08/10/2023 14:19:56 Transfer Complete 08/10/2023 14:19:56 08/10/2023 14:19:56 08/10/2023 14:19:56 ADDRESS: [address] [facility] [address] [facility] [id number] PHYS DOC NOTES: MEDICAL INFORMATION: Prescriptions Given: New Medications [facility], [address], [place] [id number], [phone] diclofenac topical (Voltaren Gel 1% Gel) 2 Gram Topical 4 times a day as needed for pain for 7 Days. not to exceed 8 grams/day/single joint of upper extremities. Refills: 0. predniSONE (predniSONE 10 mg Tab) 6 PO x 3 days then 4 PO x 5 days then 2 PO x 5 days then 1 PO x 5 days then 1/2 PO x 5 days. Refills: 0. Medications to Continue with No Changes Other Medications albuterol (Albuterol (Eqv-ProAir HFA) 90 mcg/inh inhalation aerosol) 2 Puffs Inhalation every 4 hours as needed Cough and Congestion. Refills: 0. brompheniramine/dextrome thorphan/PSE (Bromfed DM oral syrup) 5 Milliliter By Mouth 4 times a day as needed for cold symptoms. Refills: 0. hydrochlorothiazide (hydrochlorothiazide 25 mg Tab) 1 Tablets By Mouth as needed Edema. venlafaxine (venlafaxine 75 mg Cap-ER) 1 Capsules By Mouth every day. PATIENT EDUCATION INFORMATION: Instructions: Plantar Fasciitis Follow up: With: Address: When: CAREY TOWNSEND DPM Within 2 to 4 days Comments: Call today to schedule your follow up With: Address: When: Carey Courtney MD, [facility] [address] [place] [address] In 3 days 08/13/2023 DIAGNOSIS: 1:Plantar fasciitis, left [facility] ED Note-Physicianon 08-10-20 ED Note-Physician Basic Information Time Seen: Amy Hernandez PA-C 08/10/2023 12:01 Chief Complaint pt repotrs left foot pain for months, has had PT done. Pt reports pain is on posterior portion of foot in arch. [place] a pop when stepping into a van today and pain has been persistent since. unable to bear weight on left foot. History of Present Illness 47-year-old female presents with left foot pain. She states that she has been in physical therapy for Planter fasciitis to this foot and has been ongoing for months and has been seeing Dr. Townsend. She states that she went to step into a van today and became more painful. Denies swelling, temperature or sensation changes. Review of Systems Review of systems negative unless otherwise stated in HPI Physical Exam Vitals & Measurements T: 36.5 ?C(Oral) HR: 77(Peripheral) RR: 16 BP: 144/85 SpO2: 97% HT: 173 cm WT: 100 kg BMI: 33.41 PHYSICAL EXAM: GENERAL: ALERT, NO ACUTE DISTRESS SKIN: WARM, DRY, INTACT; NO CYANOSIS, NO RASH, NO ECCHYMOSIS HEAD: NORMOCEPHALIC, ATRAUMATIC NECK: SUPPLE, TRACHEA MIDLINE, FROM RESPIRATORY: NON-LABORED RESPIRATIONS, SYMMETRICAL EXPANSION EXTREMITIES: Tender to the arch of the left foot, NO CYANOSIS, NO EDEMA, FROM ALL EXTREMITIES X 4, PULSES INTACT, NORMAL STRENGTH, NO DEFORMITY, CAPILLARY REFILL INTACT; dorsiflexion and plantarflexion intact NEUROLOGICAL: A&OX3, SENSORY INTACT PSYCHIATRIC: COOPERATIVE, APPROPRIATE MOOD AND AFFECT Medical Decision Making No acute findings on prelim x-ray. Patient will be treated with Toradol and given a prescription for prednisone taper and Voltaren gel until she can see her orthodontic laboratory technician. I offered her crutches and she declines as she states that she has these at home. Likely her Planter fasciitis versus ligament or tendon injury as she states that she heard a pop. She is to follow-up with her orthodontic laboratory technician. Afebrile, not tachycardic, tolerating p.o. and hemodynamically stable to be discharged home. Educated side effect of medications. Answered all questions. Patient in agreement with treatment. Assessment/Plan 1. Plantar fasciitis, left (M72.2: Plantar fascial fibromatosis) Ordered: diclofenac topical, 2 gm, Topical, QID for pain for 7 day(s), 100 gm, Refill(s) 0, not to exceed 8 grams/day/single joint of upper extremities, [facility], 173, cm, 08/10/23 12:00:00 EST, Height/Length Dosing, 100, kg, 08/10/23 12:00:00 EST, Weight Dosing predniSONE, See Instructions, 6 PO x 3 days then 4 PO x 5 days then 2 PO x 5 days then 1 PO x 5 days then 1/2 PO x 5 days, # 58 tab(s), Refills(s) 0, Pharmacy: [facility], 173, cm, 08/10/23 12:00:00 EST, Height/Length Dosing, 100, kg, 08/10/23 12:... Orders: ketorolac, 15 mg = 0.5 mL, Injection, IntraMuscular, Once, Stop date 08/10/23 14:06:00 EST, STAT, Start date 08/10/23 14:06:00 EST, 08/10/23 14:06:00 EST Medications Administered Given ketorolac 60 mg/2 mL Injection, 15 mg, IntraMuscular Disposition Plan Patient Discharge Condition Stable Discharge Disposition Home Discharge Prescription List Prescriptions predniSONE 10 mg Tab, See Instructions Voltaren Gel 1% Gel, 2 gm, Topical, QID, PRN Follow-up With When Contact Information Carey Courtney MD, [facility] In 3 days 08/13/2023 [facility] [place] [address]- Additional Instructions: CAREY TOWNSEND DPM Within 2 to 4 days Additional Instructions: Call today to schedule your follow up Patient Education Plantar Fasciitis Attestation This visit was performed by both the physician and an APC. I performed all aspects of the MDM as documented. Problem List/Past Medical History Ongoing Acoustic neuroma BMI 39.0-39.9,adult Cerebral ventriculomegaly Chronic pain syndrome Depression Mixed conductive and sensorineural hearing loss Screening for malignant neoplasm of colon Historical No qualifying data Procedure/Surgical History Colonoscopic polypectomy (05/08/2022), Left shoulder scope (10/22/2015), Appendectomy, essure. Medications Inpatient No active inpatient medications Home Albuterol (Eqv-ProAir HFA) 90 mcg/inh inhalation aerosol, 2 puff(s), Inhalation, q4hr, PRN Bromfed DM oral syrup, 5 mL, Oral, QID, PRN hydrochlorothiazide 25 mg Tab, 25 mg= 1 tab(s), Oral, PRN predniSONE 10 mg Tab, See Instructions venlafaxine 75 mg Cap-ER, 75 mg= 1 cap(s), Oral, Daily Voltaren Gel 1% Gel, 2 gm, Topical, QID, PRN Allergies sulfa drugs (Hives) Social History Alcohol - Denies Alcohol Use, 04/15/2014 Substance Abuse - Denies Substance Abuse, 04/15/2014 Tobacco - Denies Tobacco Use, 04/15/2014 Never (less than 100 in lifetime) Tobacco Use:. Never Smokeless Tobacco Use:., 05/08/2023 Never (less than 100 in lifetime) Tobacco Use:., 05/27/2022 Family History Diabetes mellitus type 2: Mother and Father. Heart disease: Father. Hypertension: Father and Brother. Lab Results No qualifying data available. Diagnostic Results XR Foot 3+ V (more content not included)... [facility] Comment on above: Result Comment: Elec tronically Signed By: Amy Hernandez PA-C\.br\Date and Time Signed: 08/10/23 14:22 EST\.br\Electronically Co-Signed By: Remington Espitia DO\.br\Date and Time Co-Signed: 08/10/23 17:26 EST ED Patient Education Noteon 08-10-2023 ED Patient Education Note Orthopedics Plantar Fasciitis Plantar fasciitis is a painful foot condition that affects the heel. It occurs when the band of tissue that connects the toes to the heel bone (plantar fascia) becomes irritated. This can happen as the result of exercising too much or doing other repetitive activities (overuse injury). Plantar fasciitis can cause mild irritation to severe pain that makes it difficult to walk or move. The pain is usually worse in the morning after sleeping, or after sitting or lying down for a period of time. Pain may also be worse after long periods of walking or standing. What are the causes? This condition may be caused by: ? Standing for long periods of time. ? Wearing shoes that do not have good arch support. ? Doing activities that put stress on joints (high-impact activities). This includes ballet and exercise that makes your heart beat faster (aerobic exercise), such as running. ? Being overweight. ? An abnormal way of walking (gait). ? Tight muscles in the back of your lower leg (calf). ? High arches in your feet or flat feet. ? Starting a new athletic activity. What are the signs or symptoms? The main symptom of this condition is heel pain. Pain may get worse after the following: ? Taking the first steps after a time of rest, especially in the morning after awakening, or after you have been sitting or lying down for a while. ? Long periods of standing still. Pain may decrease after 30?45 minutes of activity, such as gentle walking. How is this diagnosed? This condition may be diagnosed based on your medical history, a physical exam, and your symptoms. Your health care provider will check for: ? A tender area on the bottom of your foot. ? A high arch in your foot or flat feet. ? Pain when you move your foot. ? Difficulty moving your foot. You may have imaging tests to confirm the diagnosis, such as: ? X-rays. ? Ultrasound. ? MRI. How is this treated? Treatment for plantar fasciitis depends on how severe your condition is. Treatment may include: ? Rest, ice, pressure (compression), and raising (elevating) the affected foot. This is called RICE therapy. Your health care provider may recommend RICE therapy along with flus-wow-qvhxkgk pain medicines to manage your pain. ? Exercises to stretch your calves and your plantar fascia. ? A splint that holds your foot in a stretched, upward position while you sleep (night splint). ? Physical therapy to relieve symptoms and prevent problems in the future. ? Injections of steroid medicine (cortisone) to relieve pain and inflammation. ? Stimulating your plantar fascia with electrical impulses (extracorporeal shock wave therapy). This is usually the last treatment option before surgery. ? Surgery, if other treatments have not worked after 12 months. Follow these instructions at home: Managing pain, stiffness, and swelling ? If directed, put ice on the painful area. To do this: ? Put ice in a plastic bag, or use a frozen bottle of water. ? Place a towel between your skin and the bag or bottle. ? Roll the bottom of your foot over the bag or bottle. ? Do this for 20 minutes, 2?3 times a day. ? Wear athletic shoes that have air-sole or gel-sole cushions, or try soft shoe inserts that are designed for plantar fasciitis. ? Elevate your foot above the level of your heart while you are sitting or lying down. Activity ? Avoid activities that cause pain. Ask your health care provider what activities are safe for you. ? Do physical therapy exercises and stretches as told by your health care provider. ? Try activities and forms of exercise that are easier on your joints (low impact). Examples include swimming, water aerobics, and biking. General instructions ? Take ehxd-zug-nulpvic and prescription medicines only as told by your health care provider. ? Wear a night splint while sleeping, if told by your health care provider. Loosen the splint if your toes tingle, become numb, or turn cold and blue. ? Maintain a healthy weight, or work with your health care provider to lose weight as needed. ? Keep all follow-up visits. This is important. Contact a health care provider if you have: ? Symptoms that do not go away with home treatment. ? Pain that gets worse. ? Pain that affects your ability to move or do daily activities. Summary ? Plantar fasciitis is a painful foot condition that affects the heel. It occurs when the band of tissue that connects the toes to the heel bone (plantar fascia) becomes irritated. ? Heel pain is the main symptom of this condition. It may get worse after exercising too much or standing still for a long time. ? Treatment varies, but it usually starts with rest, ice, pressure (compression), and raising (elevating) the affected foot. This is called RICE therapy. Kgse-zjp-ggntuyn medicines can also be used to manage pain. This information is not (more content not included)... [facility] ED Patient Summaryon 023 ED Patient Summary (Inserted Image. Linda ble to display) [address] [address] Patient Discharge Instructions Person Information Name: JAVIER OROSCO Age: 47 Years Arrival Date: 08/10/2023 11:52:25 Discharge Diagnosis: 1:Plantar fasciitis, left Primary Care Physician: Carey Courtney MD Provider Information Primary Provider: Remington Espitia DO Advanced Hospitality Recruiter:None The exam and treatment you received in the Emergency Department were for an urgent problem and are not intended as complete care. It is important that you follow up with a doctor, nurse practitioner, or physician?s gift shop assistant for ongoing care. If your symptoms become worse or you do not improve as expected and you are unable to reach your usual health care provider, you should return to the Emergency Department. We are available 24 hours a day. JAVIER OROSCO has been given the following list of patient education materials, prescriptions and follow-up instructions: Follow-up Instructions: With: Address: When: CAREY TOWNSEND DPM Within 2 to 4 days Comments: Call today to schedule your follow up With: Address: When: Carey Courtney MD, [address] [address] In 3 days 08/13/2023 In the event that this physician does not participate in your insurance network, please consult with your insurance company to find a nearby participating provider. Patient Education Materials: Plantar Fasciitis A MESSAGE TO ALL PATIENTS REGARDING OPIOIDS PRESCRIPTION OPIOIDS: WHAT YOU NEED TO KNOW Prescription opioids can be used to help relieve nppwrixm-mc-txtngp pain and are often prescribed following a surgery or injury, or for certain health conditions. These medications can be an important part of the treatment but also come with serious risks. It is important to work with your healthcare provider to make sure you are getting the safest, most effective care. WHAT ARE THE RISKS AND SIDE EFFECTS OF OPIOID USE? Prescription opioids carry serious risks of addiction and overdose, especially with prolonged use. An opioid overdose, often marked by slowed breathing, can cause sudden . The use of prescription opioids can have a number of side effects as well, even when taken as directed: ? Tolerance?meaning you might need to take more of the medication for the same pain relief ? Physical dependence?meaning you have symptoms of withdrawal when a medication is stopped ? Increased sensitivity to pain ? Constipation ? Nausea, vomiting, and dry mouth ? Sleepiness and dizziness ? Confusion ? Depression ? Low levels of testosterone that can result in lower sex drive, energy, and strength ? Itching and sweating RISKS ARE GREATER WITH: ? History of drug misuse, substance use disorder, or overdose ? Mental health conditions (such as depression or anxiety) ? Sleep apnea ? Older age (65 years and older) ? Avoid alcohol while taking prescription opioids. Also, unless specifically advised by your health care provider, medications to avoid include: ? Benzodiazepines (such as Xanax or Valium) ? Muscle relaxants (such as Soma or Flexeril) ? Hypnotics (such as Ambien or Lunesta) ? Other prescription opioids KNOW YOUR OPTIONS Talk to your health care provider about ways to manage your pain that don?t involve prescription opioids. Some of these options may actually work better and have fewer risks and side effects. Options may include: ? Pain relievers such as acetaminophen, ibuprofen, and naproxen ? Some medication that are also used for depression or seizures ? Physical therapy and exercise ? Cognitive behavioral therapy, a psychological, goal-directed approach, in which patients learn how to modify physical, behavioral, and emotional triggers of pain and stress. IF YOU ARE PRESCRIBED OPIOIDS FOR PAIN: ? Never take opioids in greater amounts or more often than prescribed. ? Follow up with your primary health care provider. o Work together to create a plan on how to manage your pain. o Talk about ways to help manage your pain that don?t involve prescription opioids. o Talk about any and all concerns and side effects. ? Help prevent misuse and abuse o Never sell or share prescription opioids. o Never use another person?s prescription opioids. ? Store prescription opioids in a secure place and out of reach of others (this may include visitors, children, friends, and family). ? Safely dispose of unused prescription opioids: Find your community drug take-back program or your pharmacy mail-back program, or flush them down the toilet, following guidance from the Food and Drug Administration (www.fda.gov/Drugs/Resou rcesForYou). ? Visit www.cdc.gov/drugoverdose to learn about the risks of opioids abuse and overdose. ? If you believe you may be struggling with addiction, tell your health care profess (more content not included)... [facility] XR Foot 3+ Views Lefton 07-15 XR Foot 3+ Views Left Exam Date/Time: 08/10/2023 12:24 EST Reason for Exam: Pain, Traumatic Report IMPRESSION: No acute osseous findings. EXAMINATION/TECHNIQUE: XR Foot 3+ Views Left HISTORY: Left foot pain. COMPARISON: None RESULT: No evidence for acute fracture. No dislocation. Hallux valgus. Mild degenerative changes first MTP joint. Mild hypertrophic changes within the midfoot. Bipartite tibial hallux sesamoid. Os peroneum. Small enthesophyte at the Achilles insertion. Mild soft tissue edema. No other significant abnormality. Ordering Provider: Jareth Childs FINAL REPORT Dictated: 08/10/2023 2:13 pm Eddi Mcnulty MD Signed (Electronic Signature): 08/10/2023 2:13 pm Signed by: Eddi Mcnulty MD Transcribed by: BELLA Technologist: JARET Technical Comments Radiation Dose: Ka,r in mGy = . DAP = . [facility] Consent for Treatmenton Consent for Treatment [id number]: 127 [facility] Discharge Instructionson Discharge Instructions [id number] :127 [facility] ED Clinical Summaryon 2022 ED Clinical Summary (Inserted Image. Linda ble to display) [place] [id number] ED Clinical Summary Person Information Name: JAVIER OROSCO [facility] Age: 47 Years : 1975 Sex: Female Language: Indian PCP: Dusty ALVAREZ, Carey Navarro Marital Status: Phone: [phone] Visit Id: Visit Reason: Cough; Shortness of breath; SOB / COUGH Speciality: Acuity: 3 Enc Type: Emergency Med Service: Emergency Arrival: 05/16/2023 15:02:26 Discharge: 05/16/2023 16:40:40 LOS: 000 01:38 Checkin: 05/16/2023 15:02:26 Checkout: 05/16/2023 16:40:40 Dispo Type: Home (Routine DC) EVENTS: Event Name Event Status Request Date/Time Start Date/Time Complete Date/Time Arrive Complete 05/16/2023 15:02:26 05/16/2023 15:02:26 05/16/2023 15:02:26 Document Home Meds Request 05/16/2023 15:02:26 Triage Complete 05/16/2023 15:02:26 05/16/2023 15:12:29 05/16/2023 15:12:29 Bed Assign Complete 05/16/2023 15:07:31 05/16/2023 15:07:31 05/16/2023 15:07:31 Dr Exam Complete 05/16/2023 15:07:31 05/16/2023 15:09:06 05/16/2023 15:09:06 RN Exam Complete 05/16/2023 15:07:31 05/16/2023 15:24:16 05/16/2023 15:24:16 Registration Complete 05/16/2023 15:07:58 05/16/2023 15:07:58 05/16/2023 15:07:58 Reg Complete Request 05/16/2023 15:07:58 Reg Bed Request Complete 05/16/2023 15:07:58 05/16/2023 15:07:58 05/16/2023 15:07:58 Registration Request 05/16/2023 15:09:06 EKG Complete 05/16/2023 15:09:10 05/16/2023 15:14:52 X-Ray Complete 05/16/2023 15:40:13 05/16/2023 15:46:46 05/16/2023 15:58:46 Wet Read Request 05/16/2023 15:58:46 Discharge Complete 05/16/2023 16:17:17 05/16/2023 16:40:45 05/16/2023 16:40:45 Transfer Complete 05/16/2023 16:40:45 05/16/2023 16:40:45 05/16/2023 16:40:45 ADDRESS: [address] [facility] [id number] PHYS DOC NOTES: MEDICAL INFORMATION: Prescriptions Given: New Medications [facility], [address] [place], [place] [id number], [phone] albuterol (Albuterol (Eqv-ProAir HFA) 90 mcg/inh inhalation aerosol) 2 Puffs Inhalation every 4 hours as needed Cough and Congestion. Refills: 0. brompheniramine/dextrome thorphan/PSE (Bromfed DM oral syrup) 5 Milliliter By Mouth 4 times a day as needed for cold symptoms. Refills: 0. Medications to Continue with No Changes Other Medications hydrochlorothiazide (hydrochlorothiazide 25 mg Tab) 1 Tablets By Mouth as needed Edema. venlafaxine (venlafaxine 75 mg Cap-ER) 1 Capsules By Mouth every day. PATIENT EDUCATION INFORMATION: Instructions: Acute Bronchitis, Adult Follow up: With: Address: When: Carey Courtney [address] [place] [address] Business (1) In 3 days 05/19/2023 Comments: Call the office of your primary care doctor to arrange for follow-up within the above-stated timeframe. Follow-up with your primary care doctor about this ED visit. You should review your labs, imaging, and diagnoses from this ED visit with your primary care physician. There are occasionally non-emergent findings that require additional follow-up after your ED visit. If you were prescribed medications you should discuss possible side-effects and drug interactions with your pharmacist. Call 911 or go to the nearest Emergency Department if you develop any new or worsening symptoms. Seek immediate medical attention if you develop: worsening shortness of breath, difficulty breathing, chest pain, nausea, vomiting, weakness, numbness, tingling, excessive sweating, loss of motion in your arms or legs, or any new or worsening symptoms. DIAGNOSIS: Acute bronchitis [facility] ED Note-Physicianon 05-16-20 ED Note-Physician Basic Information Time Seen: Remington Espitia DO 05/16/2023 15:09 Chief Complaint SOB and cough x 2 weeks. Went to urgent care and told strep throat and given meds. Denies throat pain now. States meds haven't helped with the cough and SOB. History of Present Illness 47-year-old female to the emergency department chief complaint of cough for the last 2 weeks. Patient reports she was previously seen in urgent care for this and was told she may have bronchitis or pneumonia and was placed on doxycycline, short course of prednisone, Ashu Moreland. She reports that she feels better overall however she has a persistent nagging cough which is keeping her up at night. She denies any shortness of breath. She denies any sore throat. She denies any chest pain. Review of Systems A 10 point review of systems is negative except as noted above. Medical and Surgical History: Reviewed and noted Social history: Lives at home Tobacco: Denies Physical Exam Vitals & Measurements T: 36.7 ?C(Oral) HR: 104(Peripheral) RR: 20 BP: 138/87 SpO2: 98% HT: 172 cm WT: 115.5 kg BMI: 39.04 VITALS: I have reviewed the triage vital signs. GENERAL: Well developed, well appearing adult in no acute distress. NEURO: Alert and oriented. Moves all extremities. Face is symmetric and expressive. EYES: PERRL. No scleral icterus or conjunctival injection. No discharge. HENT: Normocephalic, atraumatic. Hearing is grossly intact. Nares grossly patent and without discharge. Mucous membranes moist. NECK: No JVD. Patient moves neck without restriction. CARDIO: Rhythm regular. Normal rate. No murmur, rub, or gallop. Pulses equal bilaterally in the upper and lower extremity. No lower extremity edema. PULM: Lungs clear to auscultation in all horne. No wheezes, rales, or rhonchi. No conversational dyspnea. No splinting, stridor, or accessory muscle use. GI/: Abdomen is soft and non-tender. Normoactive bowel sounds. EXTREMITIES: Symmetric muscle bulk. No joint swelling. No clubbing, cyanosis, or deformity. SKIN: Warm and dry. Normal turgor. No rash or lesions appreciated. PSYCH: Mood, affect, and interaction is appropriate to the setting. Medical Decision Making Well-appearing 47-year-old female to the emergency department chief complaint of persistent cough for the last 2 weeks. Vital stable, the patient is afebrile. Clinically I suspect bronchitis. Given the persistence of the cough will order an x-ray to rule out pneumonia. EKG without ischemic changes. Patient agrees with this plan. X-rays without acute findings. She did not respond to steroids. Will prescribe albuterol as needed every 4 hours for cough. Will prescribe Bromfed. Return precautions were discussed. All questions were answered. The patient was discharged home. Assessment/Plan Acute bronchitis (J20.9: Acute bronchitis, unspecified) Orders: albuterol, 2 puff(s), Inhalation, q4hr Cough and Congestion, 1 EA, Refill(s) 0, [facility] #[facility], 172, cm, 05/16/23 15:12:00 EDT, Height/Length Dosing, 115.5, kg, 05/16/23 15:12:00 EDT, Weight Dosing brompheniramine/dextrome thorphan/PSE, 5 mL, Oral, QID for cold symptoms, 200 mL, Refill(s) 0, [facility] #37, 172, cm, 05/16/23 15:12:00 EDT, Height/Length Dosing, 115.5, kg, 05/16/23 15:12:00 EDT, Weight Dosing XR Chest 2 Views Disposition Plan Patient Discharge Condition Stable Discharge Disposition Home Discharge Prescription List Prescriptions Albuterol (Eqv-ProAir HFA) 90 mcg/inh inhalation aerosol, 2 puff(s), Inhalation, q4hr, PRN Bromfed DM oral syrup, 5 mL, Oral, QID, PRN Follow-up With When Contact Information Carey Courtney In 3 days 05/19/[address] [place] [id number] Business (1) Additional Instructions: Call the office of your primary care doctor to arrange for follow-up within the above-stated timeframe. Follow-up with your primary care doctor about this ED visit. You should review your labs, imaging, and diagnoses from this ED visit with your primary care physician. There are occasionally non-emergent findings that require additional follow-up after your ED visit. If you were prescribed medications you should discuss possible side-effects and drug interactions with your pharmacist. Call 911 or go to the nearest Emergency Department if you develop any new or worsening symptoms. Seek immediate medical attention if you develop: worsening shortness of breath, difficulty breathing, chest pain, nausea, vomiting, weakness, numbness, tingling, excessive sweating, loss of motion in your arms or legs, or any new or worsening symptoms. Patient Education Acute Bronchitis, Adult Problem List/Past Medical History Ongoing Acoustic neuroma BMI 39.0-39.9,adult Cerebral ventriculomegaly Chronic pain syndrome Depression Mixed conductive and sensorineural hearing loss Screening for malignant neoplasm of colon Historical No qualifying data Procedure/Surgical History Colonoscopic polypectom (more content not included)... [facility] Comment on above: Result Comment: Elec tronically Signed By: Remington Espitia DO\.br\Date and Time Signed: 05/16/23 17:44 EDT ED Patient Education Noteon 05-16-2023 ED Patient Education Note Pulmonary Medicine Acute Bronchitis, Adult Acute bronchitis is sudden inflammation of the main airways (bronchi) that come off the windpipe (trachea) in the lungs. The swelling causes the airways to get smaller and make more mucus than normal. This can make it hard to breathe and can cause coughing or noisy breathing (wheezing). Acute bronchitis may last several weeks. The cough may last longer. Allergies, asthma, and exposure to smoke may make the condition worse. What are the causes? This condition can be caused by germs and by substances that irritate the lungs, including: ? Cold and flu viruses. The most common cause of this condition is the virus that causes the common cold. ? Bacteria. This is less common. ? Breathing in substances that irritate the lungs, including: ? Smoke from cigarettes and other forms of tobacco. ? Dust and pollen. ? Fumes from household cleaning products, gases, or burned fuel. ? Indoor or outdoor air pollution. What increases the risk? The following factors may make you more likely to develop this condition: ? A weak body's defense system, also called the immune system. ? A condition that affects your lungs and breathing, such as asthma. What are the signs or symptoms? Common symptoms of this condition include: ? Coughing. This may bring up clear, yellow, or green mucus from your lungs (sputum). ? Wheezing. ? Runny or stuffy nose. ? Having too much mucus in your lungs (chest congestion). ? Shortness of breath. ? Aches and pains, including sore throat or chest. How is this diagnosed? This condition is usually diagnosed based on: ? Your symptoms and medical history. ? A physical exam. You may also have other tests, including tests to rule out other conditions, such as pneumonia. These tests include: ? A test of lung function. ? Test of a mucus sample to look for the presence of bacteria. ? Tests to check the oxygen level in your blood. ? Blood tests. ? Chest X-ray. How is this treated? Most cases of acute bronchitis clear up over time without treatment. Your health care provider may recommend: ? Drinking more fluids to help thin your mucus so it is easier to cough up. ? Taking inhaled medicine (inhaler) to improve air flow in and out of your lungs. ? Using a vaporizer or a humidifier. These are machines that add water to the air to help you breathe better. ? Taking a medicine that thins mucus and clears congestion (expectorant). ? Taking a medicine that prevents or stops coughing (cough suppressant). It is notcommon to take an antibiotic medicine for this condition. Follow these instructions at home: ? Take vany-xzr-uzwxtks and prescription medicines only as told by your health care provider. ? Use an inhaler, vaporizer, or humidifier as told by your health care provider. ? Take two teaspoons (10 mL) of honey at bedtime to lessen coughing at night. ? Drink enough fluid to keep your urine pale yellow. ? Do not use any products that contain nicotine or tobacco. These products include cigarettes, chewing tobacco, and vaping devices, such as e-cigarettes. If you need help quitting, ask your health care provider. ? Get plenty of rest. ? Return to your normal activities as told by your health care provider. Ask your health care provider what activities are safe for you. ? Keep all follow-up visits. This is important. How is this prevented? To lower your risk of getting this condition again: ? Wash your hands often with soap and water for at least 20 seconds. If soap and water are not available, use hand element burner. ? Avoid contact with people who have cold symptoms. ? Try not to touch your mouth, nose, or eyes with your hands. ? Avoid breathing in smoke or chemical fumes. Breathing smoke or chemical fumes will make your condition worse. ? Get the flu shot every year. Contact a health care provider if: ? Your symptoms do not improve after 2 weeks. ? You have trouble coughing up the mucus. ? Your cough keeps you awake at night. ? You have a fever. Get help right away if you: ? Cough up blood. ? Feel pain in your chest. ? Have severe shortness of breath. ? Faint or keep feeling like you are going to faint. ? Have a severe headache. ? Have a fever or chills that get worse. These symptoms may represent a serious problem that is an emergency. Do not wait to see if the symptoms will go away. Get medical help right away. Call your local emergency services (911 in the [place] Do not drive yourself to the hospital. Summary ? Acute bronchitis is inflammation of the main airways (bronchi) that come off the windpipe (trachea) in the lungs. The swelling causes the airways to get smaller and make more mucus than normal. ? Drinking more fluids can help thin your mucus so it is easier to cough up. ? Take fioo-bcs-mkmkoev and prescription medicin (more content not included)... [facility] ED Patient Summaryon 023 ED Patient Summary (Inserted Image. Linda ble to display) [place] [address] Patient Discharge Instructions Person Information Name: JAVIER OROSCO Age: 47 Years Arrival Date: 05/16/2023 15:02:26 Discharge Diagnosis: Acute bronchitis Primary Care Physician: Dusty ALVAREZ, Carey Navarro Provider Information Primary Provider: Remington Espitia DO Advanced Hospitality Recruiter:None The exam and treatment you received in the Emergency Department were for an urgent problem and are not intended as complete care. It is important that you follow up with a doctor, nurse practitioner, or physician?s gift shop assistant for ongoing care. If your symptoms become worse or you do not improve as expected and you are unable to reach your usual health care provider, you should return to the Emergency Department. We are available 24 hours a day. JAVIER OROSCO has been given the following list of patient education materials, prescriptions and follow-up instructions: Follow-up Instructions: With: Address: When: Carey Courtney [address] [place] [address] [employer] In 3 days 05/19/2023 Comments: Call the office of your primary care doctor to arrange for follow-up within the above-stated timeframe. Follow-up with your primary care doctor about this ED visit. You should review your labs, imaging, and diagnoses from this ED visit with your primary care physician. There are occasionally non-emergent findings that require additional follow-up after your ED visit. If you were prescribed medications you should discuss possible side-effects and drug interactions with your pharmacist. Call 911 or go to the nearest Emergency Department if you develop any new or worsening symptoms. Seek immediate medical attention if you develop: worsening shortness of breath, difficulty breathing, chest pain, nausea, vomiting, weakness, numbness, tingling, excessive sweating, loss of motion in your arms or legs, or any new or worsening symptoms. In the event that this physician does not participate in your insurance network, please consult with your insurance company to find a nearby participating provider. Patient Education Materials: Acute Bronchitis, Adult A MESSAGE TO ALL PATIENTS REGARDING OPIOIDS PRESCRIPTION OPIOIDS: WHAT YOU NEED TO KNOW Prescription opioids can be used to help relieve cowegnfc-tm-ifxhvn pain and are often prescribed following a surgery or injury, or for certain health conditions. These medications can be an important part of the treatment but also come with serious risks. It is important to work with your healthcare provider to make sure you are getting the safest, most effective care. WHAT ARE THE RISKS AND SIDE EFFECTS OF OPIOID USE? Prescription opioids carry serious risks of addiction and overdose, especially with prolonged use. An opioid overdose, often marked by slowed breathing, can cause sudden . The use of prescription opioids can have a number of side effects as well, even when taken as directed: ? Tolerance?meaning you might need to take more of the medication for the same pain relief ? Physical dependence?meaning you have symptoms of withdrawal when a medication is stopped ? Increased sensitivity to pain ? Constipation ? Nausea, vomiting, and dry mouth ? Sleepiness and dizziness ? Confusion ? Depression ? Low levels of testosterone that can result in lower sex drive, energy, and strength ? Itching and sweating RISKS ARE GREATER WITH: ? History of drug misuse, substance use disorder, or overdose ? Mental health conditions (such as depression or anxiety) ? Sleep apnea ? Older age (65 years and older) ? Avoid alcohol while taking prescription opioids. Also, unless specifically advised by your health care provider, medications to avoid include: ? Benzodiazepines (such as Xanax or Valium) ? Muscle relaxants (such as Soma or Flexeril) ? Hypnotics (such as Ambien or Lunesta) ? Other prescription opioids KNOW YOUR OPTIONS Talk to your health care provider about ways to manage your pain that don?t involve prescription opioids. Some of these options may actually work better and have fewer risks and side effects. Options may include: ? Pain relievers such as acetaminophen, ibuprofen, and naproxen ? Some medication that are also used for depression or seizures ? Physical therapy and exercise ? Cognitive behavioral therapy, a psychological, goal-directed approach, in which patients learn how to modify physical, behavioral, and emotional triggers of pain and stress. IF YOU ARE PRESCRIBED OPIOIDS FOR PAIN: ? Never take opioids in greater amounts or more often than prescribed. ? Follow up with your primary health care provider. o Work together to create a plan on how to manage your pain. o Talk about ways to help manage your pain that don?t involve prescription opioids. o Talk about any an (more content not included)... [facility] XR Chest 2 Viewson XR Chest 2 Views Exam Date/Time: 05/16/2023 15:58 EDT Reason for Exam: Cough Report IMPRESSION: NO EVIDENCE OF ACTIVE CARDIOPULMONARY DISEASE. EXAM: XR Chest 2 Views DATE: 05/16/2023 3:46 PM CLINICAL HISTORY: Cough. COMPARISON: None available. TECHNIQUE: Upright PA and lateral radiographs of the chest were obtained. FINDINGS: There is no significant pulmonary infiltrate, cardiomegaly, pleural effusion, vascular congestion, pneumothorax, or displaced fractures identified. Ordering Provider: Remington Espitia FINAL REPORT Dictated: 05/16/2023 4:05 pm Hong Willard MD Signed (Electronic Signature): 05/16/2023 4:05 pm Signed by: Hong Willard MD Transcribed by: BELLA Technologist: CATARINO Technical Comments Radiation Dose: ron David in mGy = na DAP = na [facility] Family Medicine Office/Clini c Noteon 05-08-2023 Family Medicine Office/Clinic Note Chief Complaint EST cough HPI Staff Krystina is a 47 year old female here for a cough symptoms started week and a half ago hasn't slept in 3 days because shes coughing fatigue coughing up mucus sore throat in the morning headache from coughing chest pain from coughing denies ear aches denies fever medication- Mucinex, allergy med History of Present Illness I have reviewed and verified the staff HPI to be accurate for this encounter. Portions of this record have been created with voice recognition software. Occasional wrong-word or ?dxtlm-u-pydv? substitutions may have occurred due to the inherent limitations of voice recognition software. 47 yo female presents today with cc of cough patient states cough and cold-like symptoms started roughly 10 days ago. She states a coworker was sick with similar symptoms at the time however the coworker had strep. Patient states that onset of symptoms she has nasal congestion rhinorrhea she had sore throat and then developed a cough. She states the cough is keeping her up at night and when she has not slept the last 3 nights. She denies any nausea vomiting diarrhea or abdominal pain. She does note intermittent headache and sinus pressure. States sinus congestion has resolved but cough has continued she denies any history of asthma COPD. She denies any smoking history. She denies any fever or chills with the ongoing cough. She has no other concerns at this time. Patient has medication allergy to sulfa. Review of Systems PHQ Score Initial Depression Screen Score: 0 ROS negative unless otherwise stated in HPI. Physical Exam Vitals & Measurements T: 36.7 ?C(Oral) HR: 89(Peripheral) BP: 112/70 SpO2: 97% HT: 68 in HT: 172 cm WT: 115.5 kg WT: 254.1 lb BMI: 39.04 General: Obese female, no acute distress Eyes: not assessed Ears: Bilateral tympanic membranes within normal limits no erythema or bulging. Bilateral external auditory canals within normal limits no erythema or edema. Nose: moderate nasal mucosa inflammation and edema Mouth: Bilateral tonsillar erythema without exudate uvula is midline no signs of peritonsillar abscess no trismus or drooling. Neck: no adenopathy Lungs: Patient has slight expiratory wheeze bilateral lower lung bases otherwise clear throughout no rhonchi or crackles. Cardio: S1, S2, regular rhythm no murmurs gallops or rubs. Abdomen: not assessed Musculoskeletal: not assessed Extremity: not assessed Neurologic: not assessed Skin: No rashes, ulcerations, or suspicious lesions Mental Status: Alert and oriented x3. Normal mood and affect Assessment/Plan 1. Bronchitis (J40: Bronchitis, not specified as acute or chronic) Please follow-up with your primary care provider in 3 to 5 days. Contact their office tomorrow morning to schedule follow-up appointment. You were seen and evaluated today in regards to cough and wheezing. You had wheezing on exam today. Discussed with you in regards to treatment for bronchitis with prednisone, steroid 40 mg daily x 5 days take as directed. In addition to tessalon perles 1 tablet every 8 hours, as needed for cough. Will cover with antibiotic doxycycline 100 mg bid x 7 days given duration of symptoms x 10 days. Cough, and viral symptoms may continue for up to14 days, with cough that could linger longe, 2-3 weeks. Continue to monitor. If you develop high spiking fever, shortness of breath ,or chest pain, you should go to the emergency department for reevaluation. You may return if needed. Ordered: benzonatate, 100 mg = 1 cap(s), Oral, TID, X 7 day(s), # 21 cap(s), Refills(s) 0, Pharmacy: [facility] #37, 172, cm, 05/08/23 13:30:00 EDT, Height/Length Dosing, 115.5, kg, 05/08/23 13:30:00 EDT, Weight Dosing doxycycline, 100 mg = 1 cap(s), Oral, BID, X 7 day(s), # 14 cap(s), Refills(s) 0, Pharmacy: [facility] #37, 172, cm, 05/08/23 13:30:00 EDT, Height/Length Dosing, 115.5, kg, 05/08/23 13:30:00 EDT, Weight Dosing predniSONE, 40 mg = 2 tab(s), Oral, Daily, X 5 day(s), # 10 tab(s), Refills(s) 0, Pharmacy: [facility] #37, 172, cm, 05/08/23 13:30:00 EDT, Height/Length Dosing, 115.5, kg, 05/08/23 13:30:00 EDT, Weight Dosing 2. BMI 39.0-39.9,adult (Z68.39: Body mass index [BMI] 39.0-39.9, adult) The standard range for ages 18 and older is >=18.5 and < 25 kg/m2. Your BMI today was above this range, this falls in the overweight to obese category and there are medical benefits to weight loss. We can offer counselling, referral, and/or medical support in addressing this problem. Your BMI and weight management will be followed at subsequent visits. Ordered: benzonatate, 100 mg = 1 cap(s), Oral, TID, X 7 day(s), # 21 cap(s), Refills(s) 0, Pharmacy: [facility] #37, 172, cm, 05/08/23 13:30:00 EDT, Height/Length Dosing, 115.5, kg, 05/08/23 13:30:00 EDT, Weight Dosing doxycycline, 100 mg = 1 cap(s), Oral, BID, X 7 day(s), # 14 cap(s), Refills(s) 0, Pharmacy: [facility] #37, 172, cm, 05/08/23 (more content not included)... [facility] Comment on above: Result Comment: Elec tronically Signed By: Jared MARTINEZ, Eliceo Archer\.br\Date and Time Signed: 05/08/23 14:03 EDT Patient Educationon 05-08-20 Patient Education Nutrition BMI for Adults What is BMI? Body mass index (BMI) is a number that is calculated from a person's weight and height. BMI can help estimate how much of a person's weight is composed of fat. BMI does not measure body fat directly. Rather, it is an alternative to procedures that directly measure body fat, which can be difficult and expensive. BMI can help identify people who may be at higher risk for certain medical problems. What are BMI measurements used for? BMI is used as a screening tool to identify possible weight problems. It helps determine whether a person is obese, overweight, a healthy weight, or underweight. BMI is useful for: ? Identifying a weight problem that may be related to a medical condition or may increase the risk for medical problems. ? Promoting changes, such as changes in diet and exercise, to help reach a healthy weight. BMI screening can be repeated to see if these changes are working. How is BMI calculated? BMI involves measuring your weight in relation to your height. Both height and weight are measured, and the BMI is calculated from those numbers. This can be done either in Indian ([place] or metric measurements. Note that charts and online BMI calculators are available to help you find your BMI quickly and easily without having to do these calculations yourself. To calculate your BMI in Indian ([place] measurements: 1. Measure your weight in pounds (lb). 2. Multiply the number of pounds by 703. ? For example, for a person who weighs 180 lb, multiply that number by 703, which equals 126,540. 3. Measure your height in inches. Then multiply that number by itself to get a measurement called inches squared. ? For example, for a person who is 70 inches tall, the inches squared measurement is 70 inches x 70 inches, which equals 4,900 inches squared. 4. Divide the total from step 2 (number of lb x 703) by the total from step 3 (inches squared): 126,540 ? 4,900 = 25.8. This is your BMI. To calculate your BMI in metric measurements: 1. Measure your weight in kilograms (kg). 2. Measure your height in meters (m). Then multiply that number by itself to get a measurement called meters squared. ? For example, for a person who is 1.75 m tall, the meters squared measurement is 1.75 m x 1.75 m, which is equal to 3.1 meters squared. 3. Divide the number of kilograms (your weight) by the meters squared number. In this example: 70 ? 3.1 = 22.6. This is your BMI. What do the results mean? BMI charts are used to identify whether you are underweight, normal weight, overweight, or obese. The following guidelines will be used: ? Underweight: BMI less than 18.5. ? Normal weight: BMI between 18.5 and 24.9. ? Overweight: BMI between 25 and 29.9. ? Obese: BMI of 30 or above. Keep these notes in mind: ? Weight includes both fat and muscle, so someone with a muscular build, such as an athlete, may have a BMI that is higher than 24.9. In cases like these, BMI is not an accurate measure of body fat. ? To determine if excess body fat is the cause of a BMI of 25 or higher, further assessments may need to be done by a health care provider. ? BMI is usually interpreted in the same way for men and women. Where to find more information For more information about BMI, including tools to quickly calculate your BMI, go to these websites: ? Centers for Disease Control and Prevention: www.cdc.gov ? [place] [employer]: www.heart.org ? National Heart, Lung, and Blood [employer]: www.nhlbi.nih.gov Summary ? Body mass index (BMI) is a number that is calculated from a person's weight and height. ? BMI may help estimate how much of a person's weight is composed of fat. BMI can help identify those who may be at higher risk for certain medical problems. ? BMI can be measured using Indian measurements or metric measurements. ? BMI charts are used to identify whether you are underweight, normal weight, overweight, or obese. This information is not intended to replace advice given to you by your health care provider. Make sure you discuss any questions you have with your health care provider. Document Revised: 05/22/2020 Document Reviewed: 03/29/2020 [employer] Patient Education ? 2022 [employer]. Pulmonary Medicine Acute Bronchitis, Adult Acute bronchitis is sudden inflammation of the main airways (bronchi) that come off the windpipe (trachea) in the lungs. The swelling causes the airways to get smaller and make more mucus than normal. This can make it hard to breathe and can cause coughing or noisy breathing (wheezing). Acute bronchitis may last several weeks. The cough may last longer. Allergies, asthma, and exposure to smoke may make the condition worse. What are the causes? This condition can be caused by germs and by substances that irritate the lungs, including: ? Cold and flu viruses. The most common cause of this condition is (more content not included)... [facility] PT - Assessmentson 3 PT - Assessments [id number]#[id number]: 127 [facility] Nonvisit Note - PTon 023 Nonvisit Note - PT cx 04-08-23 hf, pt le ft voice mail, stated that she is out of [place]. [facility] PT - Home Exercise Programon 04-01-2023 PT - Home Exercise Program [id number] :127 [facility] PT - Assessmentson 3 PT - Assessments [id number]#1.00CD :127 [facility] PT - Home Exercise Programon 03-25-2023 PT - Home Exercise Program [id number]#1.00C D:127 [facility] PT - Home Exercise Programon 03-23-2023 PT - Home Exercise Program [id number]#1.00CD: 127 [facility] Nonvisit Note - PTon 023 Nonvisit Note - PT Double booked linda loya Confirmed 03/18 as next appt. [facility] PT - [place] 03-11-2023 PT - Orders [id number]#1.00CD :127 [facility] PT - Home Exercise Programon 03-09-2023 PT - Home Exercise Program [id number]#1.00CD: 127 [facility] PT - Assessmentson 3 PT - Assessments [id number]#1.00CD: 127 [facility] PT - Consentson 03-02-2023 PT - Consents [id number]#1.00CD: 127 [facility] PT - Home Exercise Programon 03-02-2023 PT - Home Exercise Program [id number]#1.00CD: 127 [facility] Consent for Treatmenton 02-11 Consent for Treatment [id number]#1.00CD: 127 [facility] PT - [place] 03-01-2023 PT - Orders [id number]#1.00CD :127 Normal [facility] Vital Signs Date Time Vital Sign Value Performing Clinician Hemant raines 02-12-2024 13:04-0400 Blood Pressure Location Eliceo Coleman [facility] 02-12-2024 13:04-0400 Body temperature 97.88 [degF] Eliceo Coleman [facility] 02-12-2024 13:04-0400 Diastolic blood pressure 86 mm[Hg] Eliceo Coleman [facility] 02-12-2024 13:04-0400 Heart rate 81 /min Eliceo Coleman [facility] 02-12-2024 13:04-0400 SaO2% (BldA) [Mass fraction] 98 % Eliceo Coleman [facility] 02-12-2024 13:04-0400 Systolic blood pressure 138 mm[Hg] Eliceo Coleman [facility] 08-10-2023 11:56-0500 Body temperature 97.7 [degF] Remington Espitia [facility] 08-10-2023 11:56-0500 Diastolic blood pressure 85 mm[Hg] Remington Espitia [facility] 08-10-2023 11:56-0500 Heart rate 77 /min Remington Espitia [facility] 08-10-2023 11:56-0500 Respiratory rate 16 /min Remington Omkar [facility] 08-10-2023 11:56-0500 SaO2% (BldA) [Mass fraction] 97 % Remingtonblair Espitia [facility] 08-10-2023 11:56-0500 Systolic blood pressure 144 mm[Hg] Remington Espitia [facility] 05-16-2023 15:08-0400 Body temperature 98.06 [degF] Remingtonblair Espitia [facility] 05-16-2023 15:08-0400 Diastolic blood pressure 87 mm[Hg] Remington Espitia [facility] 05-16-2023 15:08-0400 Heart rate 104 /min Remington Espitia [facility] 05-16-2023 15:08-0400 Respiratory rate 20 /min Remingtonblair Espitia [facility] 05-16-2023 15:08-0400 SaO2% (BldA) [Mass fraction] 98 % Remington Espitia [facility] 05-16-2023 15:08-0400 Systolic blood pressure 138 mm[Hg] Remington Espitia [facility] 05-08-2023 13:27-0400 Blood Pressure Location Eliceo Coleman [facility] 05-08-2023 13:27-0400 Body temperature 98.06 [degF] Eliceo Coleman [facility] 05-08-2023 13:27-0400 Diastolic blood pressure 70 mm[Hg] Eliceo Coleman [facility] 05-08-2023 13:27-0400 Heart rate 89 /min Eliceo Coleman [facility] 05-08-2023 13:27-0400 SaO2% (BldA) [Mass fraction] 97 % Eliceo Coleman [facility] 05-08-2023 13:27-0400 Systolic blood pressure 112 mm[Hg] Eliceo Coleman [facility] 06-22-2022 11:41-0400 Blood Pressure Location Alexa Mckee [facility] 06-22-2022 11:41-0400 Diastolic blood pressure 71 mm[Hg] Alexa Husseinan [facility] 06-22-2022 11:41-0400 Heart rate 80 /min Alexa Mckee [facility] 06-22-2022 11:41-0400 SaO2% (BldA) [Mass fraction] 98 % Alexa Mckee [facility] 06-22-2022 11:41-0400 Systolic blood pressure 109 mm[Hg] Alexa Husseinan [facility] 05-27-2022 11:14-0400 Body temperature 99.14 [degF] Remington Espitia [facility] 05-27-2022 11:14-0400 Diastolic blood pressure 84 mm[Hg] Remington Espitia [facility] 05-27-2022 11:14-0400 Heart rate 71 /min Remington Espitia [facility] 05-27-2022 11:14-0400 Respiratory rate 18 /min Remington Espitia [facility] 05-27-2022 11:14-0400 SaO2% (BldA) [Mass fraction] 97 % Remington Espitia [facility] 05-27-2022 11:14-0400 Systolic blood pressure 128 mm[Hg] Remington Espitia [facility] 05-26-2022 16:25-0400 Blood Pressure Location Vishal Christina [facility] 05-26-2022 16:25-0400 Diastolic blood pressure 82 mm[Hg] Vishal Christina [facility] 05-26-2022 16:25-0400 Heart rate 72 /min Vishal Christina [facility] 05-26-2022 16:25-0400 Mean blood pressure 91 mm[Hg] Vishal Christina [facility] 05-26-2022 16:25-0400 SaO2% (BldA) [Mass fraction] 99 % Vishal Christina [facility] 05-26-2022 16:25-0400 Systolic blood pressure 108 mm[Hg] Vishal Christina [facility] 05-26-2022 15:30-0400 Blood Pressure Location Vishal Christina [facility] 05-26-2022 15:30-0400 Diastolic blood pressure 60 mm[Hg] Vishal Christina [facility] 05-26-2022 15:30-0400 Heart rate 69 /min Vishal Abreue [facility] 05-26-2022 15:30-0400 Mean blood pressure 71 mm[Hg] Vishal Abreue [facility] 05-26-2022 15:30-0400 SaO2% (BldA) [Mass fraction] 97 % Vishal Christina [facility] 05-26-2022 15:30-0400 Systolic blood pressure 92 mm[Hg] Vishal Christina [facility] 05-26-2022 14:55-0400 Body temperature 98.42 [degF] Vishal Christina [facility] 05-26-2022 14:55-0400 Diastolic blood pressure 64 mm[Hg] Vishal Christina [facility] 05-26-2022 14:55-0400 Heart rate 67 /min Vishal Christina [facility] 05-26-2022 14:55-0400 Respiratory rate 18 /min Vishal Christina [facility] 05-26-2022 14:55-0400 SaO2% (BldA) [Mass fraction] 97 % Vishal Christina [facility] 05-26-2022 14:55-0400 Systolic blood pressure 128 mm[Hg] Vishal Christina [facility] 05-14-2022 15:39-0400 Blood Pressure Location Alexa Mckee [facility] 05-14-2022 15:39-0400 Diastolic blood pressure 77 mm[Hg] Alexa Rafi [facility] 05-14-2022 15:39-0400 Heart rate 83 /min Alexa Husseinan [facility] 05-14-2022 15:39-0400 SaO2% (BldA) [Mass fraction] 98 % Alexa Husseinan [facility] 05-14-2022 15:39-0400 Systolic blood pressure 119 mm[Hg] Alexa Mckee [facility] 05-08-2022 10:23-0400 Diastolic blood pressure 72 mm[Hg] Sreedhar ARENAS [facility] 05-08-2022 10:23-0400 Heart rate 61 /min Sreedhar NILL [facility] 05-08-2022 10:23-0400 Respiratory rate 22 /min Sreedhar NILL [facility] 05-08-2022 10:23-0400 SaO2% (BldA) [Mass fraction] 99 % Sreedhar NILL [facility] 05-08-2022 10:23-0400 Systolic blood pressure 109 mm[Hg] Sreedhar NILL [facility] 05-08-2022 10:10-0400 Diastolic blood pressure 72 mm[Hg] Sreedhar NILL [facility] 05-08-2022 10:10-0400 Heart rate 61 /min Sreedhar NILL [facility] 05-08-2022 10:10-0400 Respiratory rate 18 /min Sreedhar NILL [facility] 05-08-2022 10:10-0400 SaO2% (BldA) [Mass fraction] 98 % Sreedhar NILL [facility] 05-08-2022 10:10-0400 Systolic blood pressure 100 mm[Hg] Sreedhar NILL [facility] 05-08-2022 10:05-0400 Diastolic blood pressure 69 mm[Hg] Sreedhar NILL [facility] 05-08-2022 10:05-0400 Heart rate 69 /min Sreedhar NILL [facility] 05-08-2022 10:05-0400 Respiratory rate 21 /min Sreedhar NILL [facility] 05-08-2022 10:05-0400 SaO2% (BldA) [Mass fraction] 97 % Sreedhar NILL [facility] 05-08-2022 10:05-0400 Systolic blood pressure 106 mm[Hg] Sreedhar NILL [facility] 05-08-2022 09:58-0400 Body temperature 97.52 [degF] Sreedhar NILL [facility] 05-08-2022 09:16-0400 Blood Pressure Location Sreedhar NILL [facility] 05-08-2022 09:16-0400 Body temperature 96.8 [degF] Sreedhar NILL [facility] 05-08-2022 09:16-0400 Respiratory rate 20 /min Sreedhar NILL [facility] 04-27-2022 15:22-0400 Blood Pressure Location Sreedhar NILL [facility] [place] 04-27-2022 15:22-0400 Diastolic blood pressure 75 mm[Hg] Sreedhar NILL [facility] [place] 04-27-2022 15:22-0400 Heart rate 81 /min Sreedhar NILL [facility] [place] 04-27-2022 15:22-0400 Respiratory rate 16 /min Sreedhar NILL [facility] [place] 04-27-2022 15:22-0400 Systolic blood pressure 112 mm[Hg] Sreedhar NILL [facility] [place] 03-17-2022 14:46-0400 Blood Pressure Location Arley Brito [facility] 03-17-2022 14:46-0400 Diastolic blood pressure 68 mm[Hg] Arley Brito [facility] 03-17-2022 14:46-0400 Heart rate 64 /min Arley Brito [facility] 03-17-2022 14:46-0400 Respiratory rate 18 /min Arley Brito [facility] 03-17-2022 14:46-0400 SaO2% (BldA) [Mass fraction] 97 % Arley Brito [facility] 03-17-2022 14:46-0400 Systolic blood pressure 106 mm[Hg] Arley Brito [facility] Encounters Encounter Date Encounter Type Care Provider Facility Start: 02-12-2024 End: 02-12-2024 ambulatory Eliceo Coleman Facility:[facility] Start: 02-12-2024 End: 02-12-2024 Patient encounter procedure Eliceo Coleman [facility] Start: 11-25-2023 End: 11-25-2023 ambulatory CAREY COURTNEY Not Available Start: 08-23-2023 End: 08-23-2023 ambulatory CAREY TOWNSEND Facility:[facility] Start: 08-23-2023 End: 08-23-2023 Patient encounter procedure CAREY TOWNSEND [facility] Start: 08-10-2023 End: 08-10-2023 Emergency department patient visit Remington Espitia [facility] Start: 05-16-2023 End: 05-16-2023 Emergency department patient visit Remington Espitia [facility] Start: 05-08-2023 End: 05-08-2023 ambulatory Eliceo Coleman Facility:[facility] Start: 05-08-2023 End: 05-08-2023 Patient encounter procedure Eliceo Coleman [facility] Start: 03-01-2023 End: 05-13-2023 ambulatory XXXX NONE Facility:[facility] Start: 11-04-2022 End: 11-04-2022 Patient encounter procedure Carey Courtney [facility] Start: 10-01-2022 End: 10-01-2022 Lab Drop off Eduarda Gaines [facility] Start: 06-22-2022 End: 06-22-2022 Patient encounter procedure Alexa Mckee [facility] Start: 06-09-2022 End: 06-09-2022 Patient encounter procedure Carey Courtney [facility] Start: 05-27-2022 End: 05-27-2022 Emergency department patient visit Remington Espitia [facility] Start: 05-26-2022 End: 05-26-2022 Emergency department patient visit Vishal Christina [facility] Start: 05-14-2022 End: 05-14-2022 Patient encounter procedure Alexa Mckee [facility] Start: 05-08-2022 End: 05-08-2022 Patient encounter procedure Sreedhar ARENAS [facility] Start: 04-27-2022 End: 04-27-2022 Patient encounter procedure Sreedhar ARENAS [facility] [place] Start: 04-23-2022 End: 04-23-2022 Patient encounter procedure Carly Cassandra TERRY [facility] Start: 03-23-2022 End: 03-23-2022 Patient encounter procedure Arley Brito [facility] Start: 03-19-2022 End: 04-30-2022 Pre-admission assessment Arley Brito [facility] Start: 03-17-2022 End: 05-05-2022 Pre-admission assessment Dania MCINTYRE [facility] Start: 03-17-2022 End: 03-17-2022 Patient encounter procedure Arley Brito [facility] Procedures Date Procedure Procedure Detail Performing Clinician Start: 05-08-2022 Colonoscopic polypectomy Sreedhar ESPARZAMarycruz Start: 10-22-2015 Left shoulder scope Ben Brito Appendectomy Arley oviedo essure Arley pickardon Immunizations Immunization Date Immunization Notes Care Provider Fa [facility] 05-26-2022 tetanus toxoid, redu michoacano diphtheria toxoid, and acellular pertussis vaccine, adsorbed Vishal Christina [facility] Comment on above: Result Comment: Left deltoid Result Comment: Left deltoid 08-26-2021 SARS-CoV-2 (COVID-19 ) mRNA-1273 vaccine Eliceo Coleman [facility] 11-07-2020 SARS-CoV-2 (COVID-19 ) mRNA-1273 vaccine Eliceo Coleman [facility] 10-10-2020 SARS-CoV-2 (COVID-19 ) mRNA-1273 vaccine Eliceo Coleman [facility] 07-11-2020 influenza virus vaccine, unspecified formulation Eliceo Coleman [facility] Payers Date Payer Category Payer Unknown [id number] 1975 Unknown [id number] 1975 Unknown [id number] 2.16.8 [id number] 1975 Unknown [id number] 2.16.8 [id number] 1975 Unknown [id number] 2.16.8 [id number] 1975 Unknown [id number] 2.16.8 [id number] 1975 Unknown [id number] 2.16.8 [id number] 1975 Unknown [id number] 2.16.8 [id number] Social History Date Type Detail Facility Tobacco smoking status No Smokin g Status Entered [facility] Sex Assigned At Female [facility] Start: 04-27-2022 End: 02-12-2024 Never smoked tobacco (finding) [facility] Never [facility] Functional Status Date Assessment Result Facility 02-12-2024 Functional Status N/A [facility] 08-10-2023 Functional Status N/A [facility] 05-16-2023 Functional Status N/A [facility] 05-08-2023 Functional Status N/A [facility] 06-22-2022 Functional Status No [facility] 05-27-2022 Functional Status N/A [facility] 05-26-2022 N/A [facility] 05-14-2022 Functional Status No [facility] 05-08-2022 Functional Status N/A [facility] 04-27-2022 N/A [facility] 03-17-2022 Functional Status N/A [facility] Clinical Notes 04-14-2020 to 08-10-2023 Note Date & Type Note Facility 08-10-2023 Hospital Discharg e instructions Patient Education 08/10/2023 14:06:56 Plantar Fasciitis Plantar Fasciitis Plantar fasciitis is a painful foot condition that affects the heel. It occurs when the band of tissue that connects the toes to the heel bone (plantar fascia) becomes irritated. This can happen as the result of exercising too much or doing other repetitive activities (overuse injury). Plantar fasciitis can cause mild irritation to severe pain that makes it difficult to walk or move. The pain is usually worse in the morning after sleeping, or after sitting or lying down for a period of time. Pain may also be worse after long periods of walking or standing. What are the causes? This condition may be caused by: Standing for long periods of time. Wearing shoes that do not have good arch support. Doing activities that put stress on joints (high-impact activities). This includes ballet and exercise that makes your heart beat faster (aerobic exercise), such as running. Being overweight. An abnormal way of walking (gait). Tight muscles in the back of your lower leg (calf). High arches in your feet or flat feet. Starting a new athletic activity. What are the signs or symptoms? The main symptom of this condition is heel pain. Pain may get worse after the following: Taking the first steps after a time of rest, especially in the morning after awakening, or after you have been sitting or lying down for a while. Long periods of standing still. Pain may decrease after 30 45 minutes of activity, such as gentle walking. How is this diagnosed? This condition may be diagnosed based on your medical history, a physical exam, and your symptoms. Your health care provider will check for: A tender area on the bottom of your foot. A high arch in your foot or flat feet. Pain when you move your foot. Difficulty moving your foot. You may have imaging tests to confirm the diagnosis, such as: X-rays. Ultrasound. MRI. How is this treated? Treatment for plantar fasciitis depends on how severe your condition is. Treatment may include: Rest, ice, pressure (compression), and raising (elevating) the affected foot. This is called RICE therapy. Your health care provider may recommend RICE therapy along with ggjd-eho-crdczxy pain medicines to manage your pain. Exercises to stretch your calves and your plantar fascia. A splint that holds your foot in a stretched, upward position while you sleep (night splint). Physical therapy to relieve symptoms and prevent problems in the future. Injections of steroid medicine (cortisone) to relieve pain and inflammation. Stimulating your plantar fascia with electrical impulses (extracorporeal shock wave therapy). This is usually the last treatment option before surgery. Surgery, if other treatments have not worked after 12 months. Follow these instructions at home: Managing pain, stiffness, and swelling If directed, put ice on the painful area. To do this: ?Put ice in a plastic bag, or use a frozen bottle of water. ?Place a towel between your skin and the bag or bottle. ?Roll the bottom of your foot over the bag or bottle. ?Do this for 20 minutes, 2 3 times a day. Wear athletic shoes that have air-sole or gel-sole cushions, or try soft shoe inserts that are designed for plantar fasciitis. Elevate your foot above the level of your heart while you are sitting or lying down. Activity Avoid activities that cause pain. Ask your health care provider what activities are safe for you. Do physical therapy exercises and stretches as told by your health care provider. Try activities and forms of exercise that are easier on your joints (low impact). Examples include swimming, water aerobics, and biking. General instructions Take ctpj-top-pbbeytb and prescription medicines only as told by your health care provider. Wear a night splint while sleeping, if told by your health care provider. Loosen the splint if your toes tingle, become numb, or turn cold and blue. Maintain a healthy weight, or work with your health care provider to lose weight as needed. Keep all follow-up visits. This is important. Contact a health care provider if you have: Symptoms that do not go away with home treatment. Pain that gets worse. Pain that affects your ability to move or do daily activities. Summary Plantar fasciitis is a painful foot condition that affects the heel. It occurs when the band of tissue that connects the toes to the heel bone (plantar fascia) becomes irritated. Heel pain is the main symptom of this condition. It may get worse after exercising too much or standing still for a long time. Treatment varies, but it usually starts with rest, ice, pressure (compression), and raising (elevating) the affected foot. This is called RICE therapy. Siee-mio-bmeglyo medicines can also be used to manage pain. This information is not intended to replace advice given to you by your health care provider. Make sure you discuss any questions you have with your health care provider. Document Revised: 12/16/2020 Document Reviewed: 12/16/2020 [employer] Patient Education 2022 [employer]. Follow Up Care 08/10/2023 11:53:44 With:CAREY TOWNSEND DPM Address: When:2 to 4 days Comments:Call today to schedule your follow up With:Carey Courtney MD, [facility] Address: [address] [place] [id number] When:08/13/2023 [facility] 08-10-2023 Evaluation + Plan note Extrac brittany from: Title:ED Note Author:Amy Hernandez PA-C Date :08/10/23 1. Plantar fasciitis, left ( M72.2: Plantar fascial fibromatosis) Ordered: diclofenac topical, 2 gm, Topical, QID for pain for 7 day(s), 100 gm, Refill(s) 0, not to exceed 8 grams/day/single joint of upper extremities, [id number], 173, cm, 08/10/23 12:00:00 EST, Height/Length Dosing, 100, kg, 08/10/23 12:00:00 EST, Weight Dosing predniSONE, See Instructions, 6 PO x 3 days then 4 PO x 5 days then 2 PO x 5 days then 1 PO x 5 days then 1/2 PO x 5 days, # 58 tab(s), Refills(s) 0, Pharmacy: [facility], 173, cm, 08/10/23 12:00:00 EST, Height/Length Dosing, 100, kg, 08/10/23 12:... Orders: ketorolac, 15 mg = 0.5 mL, Injection, IntraMuscular, Once, Stop date 08/10/23 14:06:00 EST, STAT, Start date 08/10/23 14:06:00 EST, 08/10/23 14:06:00 EST [facility]09-03-2023 Hospital Discharge instructions Patient Education 05/16/2023 16:18:04 Acute Bronchitis, Adult Acute Bronchitis, Adult Acute bronchitis is sudden inflammation of the main airways (bronchi) that come off the windpipe (trachea) in the lungs. The swelling causes the airways to get smaller and make more mucus than normal. This can make it hard to breathe and can cause coughing or noisy breathing (wheezing). Acute bronchitis may last several weeks. The cough may last longer. Allergies, asthma, and exposureto smoke may make the condition worse. What are the causes? This condition can be caused by germs and by substances that irritate the lungs, including: Cold and flu viruses. The most common cause of this condition is the virus that causes the common cold. Bacteria. This is less common. Breathing in substances that irritate the lungs, including: ?Smoke from cigarettes and other forms of tobacco. ?Dust and pollen. ?Fumes from household cleaning products, gases, or burned fuel. ?Indoor or outdoor air pollution. What increases the risk? The following factors may make you more likely to develop this condition: A weak body's defense system, also called the immune system. A condition that affects your lungs and breathing, such as asthma. What are the signs or symptoms? Common symptoms of this condition include: Coughing. This may bring up clear, yellow, or green mucus from your lungs (sputum). Wheezing. Runny or stuffy nose. Having too much mucus in your lungs (chest congestion). Shortness of breath. Aches and pains, including sore throat or chest. How is this diagnosed? This condition is usually diagnosed based on: Your symptoms and medical history. A physical exam. You may also have other tests, including tests to rule out other conditions, such as pneumonia. These tests include: A test of lung function. Test of a mucus sample to look for the presence of bacteria. Tests to check the oxygen level in your blood. Blood tests. Chest X-ray. How is this treated? Most cases of acute bronchitis clear up over time without treatment. Your health care provider may recommend: Drinking more fluids to help thin your mucus so it is easier to cough up. Taking inhaled medicine (inhaler) to improve air flow in and out of your lungs. Using a vaporizer or a humidifier. These are machines that add water to the air to help you breathebetter. Taking a medicine that thins mucus and clears congestion (expectorant). Taking a medicine that prevents or stops coughing (cough suppressant). It is notcommon to take an antibiotic medicine for this condition. Follow these instructions at home: Take nggf-dwr-dcoqtbw and prescription medicines only as told by your health care provider. Use an inhaler, vaporizer, or humidifier as told by your health care provider. Take two teaspoons (10 mL) of honey at bedtime to lessen coughing at night. Drink enough fluid to keep your urine pale yellow. Do not use any products that contain nicotine or tobacco. These products include cigarettes, chewing tobacco, and vaping devices, such as e-cigarettes. If you need help quitting, ask your health careprovider. Get plenty of rest. Return to your normal activities as told by your health care provider. Ask your health care provider what activities are safe for you. Keep all follow-up visits. This is important. How is this prevented? To lower your risk of getting this condition again: Wash your hands often with soap and water for at least 20 seconds. If soap and water are not available, use hand element burner. Avoid contact with people who have cold symptoms. Try not to touch your mouth, nose, or eyes with your hands. Avoid breathing in smoke or chemical fumes. Breathing smoke or chemical fumes will make your condition worse. Get the flu shot every year. Contact a health care provider if: Your symptoms do not improve after 2 weeks. You have trouble coughing up the mucus. Your cough keeps you awake at night. You have a fever. Get help right away if you: Cough up blood. Feel pain in your chest. Have severe shortness of breath. Faint or keep feeling like you are going to faint. Have a severe headache. Have a fever or chills that get worse. These symptoms may represent a serious problem that is an emergency. Do not wait to see if the symptoms will go away. Get medical help right away. Call your local emergency services (911 in the [place] Do not drive yourself to the hospital. Summary Acute bronchitis is inflammation of the main airways (bronchi) that come off the windpipe (trachea)in the lungs. The swelling causes the airways to get smaller and make more mucus than normal. Drinking more fluids can help thin your mucus so it is easier to cough up. Take cokl-kub-llhfqqx and prescription medicines only as told by your health care provider. Do not use any products that contain nicotine or tobacco. These products include cigarettes, chewing tobacco, and vaping devices, such as e-cigarettes. If you need help quitting, ask your health careprovider. Contact a health care provider if your symptoms do not improve after 2 weeks. This information is not intended to replace advice given to you by your health care provider. Make sure you discuss any questions you have with your health care provider. Document Revised: 12/31/2021 Document Reviewed: 12/31/2021 Retrace Patient Education 2022 [employer]. Follow Up Care 05/16/2023 15:03:49 With:Carey Courtney Address: [address] [place] [address] [place] [id number]- Business (1) When:05/19/2023 16:16:58 Comments:Call the office of your primary care doctor to arrange for follow-up within the above-stated timeframe. Follow-up with your primary care doctor about this ED visit. You should review your labs, imaging, and diagnoses from this ED visit with your primary care physician. There are occasionally non-emergent findings that require additional follow-up after your ED visit. If you were prescribed medications you should discuss possible side-effects and drug interactions with your pharmacist. Call 911 or go to the nearest Emergency Department if you develop any new or worsening symptoms.Seek immediate medical attention if you develop: worsening shortness of breath, difficulty breathing, chest pain,nausea, vomiting, weakness, numbness, tingling, excessive sweating, loss of motion in your arms or legs, or any new or worsening symptoms. [facility]09-03-2023 Evaluation + Plan noteExtracted from: Title:ED Note Author:Remington Espitia DO Date: Acute bronchitis (J20.9: Acu te bronchitis, unspecified) Orders: albuterol, 2 puff(s), Inhalation, q4hr Cough and Congestion, 1 EA, Refill(s) 0, [employer] #37, 172, cm, 05/16/23 15:12:00 EDT, Height/Length Dosing, 115.5, kg, 05/16/23 15:12:00 EDT, Weight Dosing brompheniramine/dextromethorphan/PSE, 5 mL, Oral, QID for cold symptoms, 200 mL, Refill(s) 0, [employer] #37, 172, cm, 05/16/23 15:12:00 EDT, Height/Length Dosing, 115.5, kg, 05/16/23 15:12:00 EDT, Weight Dosing XR Chest 2 Views Future Scheduled Tests Radiology* CT Venogram Abdomen and Pelvis w/ Contrast 06/22/22 [facility]08-26-2023 Hospital Discharge instructions Patient Education 05/08/2023 14:02:42 Acute Bronchitis, Adult Acute Bronchitis, Adult Acute bronchitis is sudden inflammation of the main airways (bronchi) that come off the windpipe (trachea) in the lungs. The swelling causes the airways to get smaller and make more mucus than normal. This can make it hard to breathe and can cause coughing or noisy breathing (wheezing). Acute bronchitis may last several weeks. The cough may last longer. Allergies, asthma, and exposureto smoke may make the condition worse. What are the causes? This condition can be caused by germs and by substances that irritate the lungs, including: Cold and flu viruses. The most common cause of this condition is the virus that causes the common cold. Bacteria. This is less common. Breathing in substances that irritate the lungs, including: ?Smoke from cigarettes and other forms of tobacco. ?Dust and pollen. ?Fumes from household cleaning products, gases, or burned fuel. ?Indoor or outdoor air pollution. What increases the risk? The following factors may make you more likely to develop this condition: A weak body's defense system, also called the immune system. A condition that affects your lungs and breathing, such as asthma. What are the signs or symptoms? Common symptoms of this condition include: Coughing. This may bring up clear, yellow, or green mucus from your lungs (sputum). Wheezing. Runny or stuffy nose. Having too much mucus in your lungs (chest congestion). Shortness of breath. Aches and pains, including sore throat or chest. How is this diagnosed? This condition is usually diagnosed based on: Your symptoms and medical history. A physical exam. You may also have other tests, including tests to rule out other conditions, such as pneumonia. These tests include: A test of lung function. Test of a mucus sample to look for the presence of bacteria. Tests to check the oxygen level in your blood. Blood tests. Chest X-ray. How is this treated? Most cases of acute bronchitis clear up over time without treatment. Your health care provider may recommend: Drinking more fluids to help thin your mucus so it is easier to cough up. Taking inhaled medicine (inhaler) to improve air flow in and out of your lungs. Using a vaporizer or a humidifier. These are machines that add water to the air to help you breathebetter. Taking a medicine that thins mucus and clears congestion (expectorant). Taking a medicine that prevents or stops coughing (cough suppressant). It is notcommon to take an antibiotic medicine for this condition. Follow these instructions at home: Take rusa-rik-qkspsnx and prescription medicines only as told by your health care provider. Use an inhaler, vaporizer, or humidifier as told by your health care provider. Take two teaspoons (10 mL) of honey at bedtime to lessen coughing at night. Drink enough fluid to keep your urine pale yellow. Do not use any products that contain nicotine or tobacco. These products include cigarettes, chewing tobacco, and vaping devices, such as e-cigarettes. If you need help quitting, ask your health careprovider. Get plenty of rest. Return to your normal activities as told by your health care provider. Ask your health care provider what activities are safe for you. Keep all follow-up visits. This is important. How is this prevented? To lower your risk of getting this condition again: Wash your hands often with soap and water for at least 20 seconds. If soap and water are not available, use hand element burner. Avoid contact with people who have cold symptoms. Try not to touch your mouth, nose, or eyes with your hands. Avoid breathing in smoke or chemical fumes. Breathing smoke or chemical fumes will make your condition worse. Get the flu shot every year. Contact a health care provider if: Your symptoms do not improve after 2 weeks. You have trouble coughing up the mucus. Your cough keeps you awake at night. You have a fever. Get help right away if you: Cough up blood. Feel pain in your chest. Have severe shortness of breath. Faint or keep feeling like you are going to faint. Have a severe headache. Have a fever or chills that get worse. These symptoms may represent a serious problem that is an emergency. Do not wait to see if the symptoms will go away. Get medical help right away. Call your local emergency services (911 in the [place] Do not drive yourself to the hospital. Summary Acute bronchitis is inflammation of the main airways (bronchi) that come off the windpipe (trachea)in the lungs. The swelling causes the airways to get smaller and make more mucus than normal. Drinking more fluids can help thin your mucus so it is easier to cough up. Take vody-fdn-wsfmvfp and prescription medicines only as told by your health care provider. Do not use any products that contain nicotine or tobacco. These products include cigarettes, chewing tobacco, and vaping devices, such as e-cigarettes. If you need help quitting, ask your health careprovider. Contact a health care provider if your symptoms do not improve after 2 weeks. This information is not intended to replace advice given to you by your health care provider. Make sure you discuss any questions you have with your health care provider. Document Revised: 12/31/2021 Document Reviewed: 12/31/2021 Retrace Patient Education 2022 [employer]. 05/08/2023 14:02:38 BMI for Adults BMI for Adults What is BMI? Body mass index (BMI) is a number that is calculated from a person's weight and height. BMI can help estimate how much of a person's weight is composed of fat. BMI does not measure body fat directly.Rather, it is an alternative to procedures that directly measure body fat, which can be difficult and expensive. BMI can help identify people who may be at higher risk for certain medical problems. What are BMI measurements used for? BMI is used as a screening tool to identify possible weight problems. It helps determine whether a person is obese, overweight, a healthy weight, or underweight. BMI is useful for: Identifying a weight problem that may be related to a medical condition or may increase the risk for medical problems. Promoting changes, such as changes in diet and exercise, to help reach a healthy weight. BMI screening can be repeated to see if these changes are working. How is BMI calculated? BMI involves measuring your weight in relation to your height. Both height and weight are measured,and the BMI is calculated from those numbers. This can be done either in Indian ([place] or metric measurements. Note that charts and online BMI calculators are available to help you find your BMI quickly and easily without having to do these calculations yourself. To calculate your BMI in Indian ([place] measurements: 1.Measure your weight in pounds (lb). 2.Multiply the number of pounds by 703. For example, for a person who weighs 180 lb, multiply that number by 703, which equals 126,540. 3.Measure your height in inches. Then multiply that number by itself to get a measurement called inches squared. For example, for a person who is 70 inches tall, the inches squared measurement is 70 inches x 70inches, which equals 4,900 inches squared. 4.Divide the total from step 2 (number of lb x 703) by the total from step 3 (inches squared): 126,540 4,900 = 25.8. This is your BMI. To calculate your BMI in metric measurements: 1.Measure your weight in kilograms (kg). 2.Measure your height in meters (m). Then multiply that number by itself to get a measurement called meters squared. For example, for a person who is 1.75 m tall, the meters squared measurement is 1.75 m x 1.75 m, which is equal to 3.1 meters squared. 3.Divide the number of kilograms (your weight) by the meters squared number. In this example: 70 3.1 = 22.6. This is your BMI. What do the results mean? BMI charts are used to identify whether you are underweight, normal weight, overweight, or obese. The following guidelines will be used: Underweight: BMI less than 18.5. Normal weight: BMI between 18.5 and 24.9. Overweight: BMI between 25 and 29.9. Obese: BMI of 30 or above. Keep these notes in mind: Weight includes both fat and muscle, so someone with a muscular build, such as an athlete, may havea BMI that is higher than 24.9. In cases like these, BMI is not an accurate measure of body fat. To determine if excess body fat is the cause of a BMI of 25 or higher, further assessments may needto be done by a health care provider. BMI is usually interpreted in the same way for men and women. Where to find more information For more information about BMI, including tools to quickly calculate your BMI, go to these websites: Centers for Disease Control and Prevention: www.cdc.gov [place] [employer]: www.heart.org National Heart, Lung, and Blood [employer]: www.nhlbi.nih.gov Summary Body mass index (BMI) is a number that is calculated from a person's weight and height. BMI may help estimate how much of a person's weight is composed of fat. BMI can help identify thosewho may be at higher risk for certain medical problems. BMI can be measured using Indian measurements or metric measurements. BMI charts are used to identify whether you are underweight, normal weight, overweight, or obese. This information is not intended to replace advice given to you by your health care provider. Make sure you discuss any questions you have with your health care provider. Document Revised: 05/22/2020 Document Reviewed: 03/29/2020 Retrace Patient Education 2022 [employer]. Follow Up Care 05/08/2023 13:11:29 With:Dusty ALVAREZ, Carey Navarro [facility] Address: [address] [place] [phone]- When: Unknown [facility] 10-10-2022 Evaluation + Plan note Future Scheduled Tests Radiology* CT Venogram Abdomen and Pelvis w/ Contrast 06/22/22 [facility] 09-14-2022 Hospital Discharge instructions Patient Education 05/27/2022 12:47:15 Sutures, Leilani, or Adhesive Wound Closure, Wcpl-bh-Zidh Sutures, Leilani, or Adhesive Wound Closure Doctors use stitches (sutures), leilani, and glue (skin adhesives) to hold your skin together whileit heals (wound closure). What your doctor uses depends on your wound. In most cases, your wound will be closed right away (primary skin closure). Sometimes it may be closed later so that it can be cleaned and then heal naturally (delayed wound closure). What are the types of wound closure? Adhesive glue To use adhesive glue, your doctor: ?Holds the edges of the wound together. ?Paints the glue onto your skin. You may need more than one layer. ?Covers your wound with a bandage (dressing) after the glue is dry. Adhesive glue may be used for: ?Wounds that are not deep (superficial wounds). ?Wounds on the face. ?Children's wounds. Adhesive glue is not used inside of wounds, or on wounds that are: ?Deep. ?Uneven. ?Bleeding. Some benefits of adhesive glue are: ?It leaves nothing that needs to be removed. ?You do not need medicine to numb the area. ?You have less pain than with other types of closure. Adhesive strips Adhesive strips are: Made of paper that is sticky (adhesive) and has many small holes it in (porous). Placed across your wound edges, like a normal bandage. Used to close very shallow wounds. Sometimes used with sutures to help improve closure. Sutures Sutures come in many different materials, strengths, and sizes. Some sutures break down as your wound heals (absorbable). Other sutures need to be removed (nonabsorbable). To use sutures, your doctor: Sews your skin together with sutures and a needle. May use one long (continuous) stitch or separate stitches. Ties and cuts the sutures at the end. Sutures can be used for all types of wounds, including under the skin. They can cause a skin reaction that can lead to infection. [place] are often used to close surgical cuts (incisions). To use leilani, your doctor: Holds the edges of your wound close together. Places a staple across the wound. Uses a tool to secure the staple to the skin. Repeats this with as many leilani as needed. Leilani are faster to use than sutures, and they cause less reaction from your skin. Leilani need to be removed using a tool that bends the leilani away from your skin. Follow these instructions at home: Medicines Take txcq-fyo-jrqdvlp and prescription medicines only as told by your doctor. If you were prescribed an antibiotic medicine, take it as told by your doctor. Do not stop taking the antibiotic even if you start to feel better. Wound care Follow instructions from your doctor about how to take care of your wound and bandage. Wash your hands with soap and water before and after touching your wound or bandage. If you cannot use soap and water, use hand element burner. Do not try to remove your wound closures unless your doctor tells you to do that. You may need a follow-up visit for your doctor to remove your closures. ?Closures may stay in place for 2 weeks or longer. ?Absorbable sutures may break down after a few days or weeks. ?If adhesive strip edges start to loosen and curl up, you may trim the loose edges. Do not pick at your wound. Picking can cause an infection. Apply ointments or creams only as told by your doctor. Check your wound every day for signs of infection. Check for: ?Redness, swelling, or pain. ?Fluid or blood. ?Warmth. ?Pus or a bad smell. General instructions Do not take baths, swim, or use a hot tub until your doctor approves. Ask your doctor if you may take showers. You may only be allowed to take sponge baths. Do not soak your wound in water. Keep all follow-up visits as told by your doctor. This is important. Contact a doctor if you: Have any of the following: ?A fever. ?Chills. ?Redness, swelling, or pain around your wound. ?Fluid or blood coming from your wound. ?Pus or a bad smell coming from your wound. Notice that your wound feels warm to the touch. Notice that the edges of your wound start to separate after your sutures come out. Notice that your wound becomes thick, raised, and darker in color after your sutures come out (scarring). Summary What your doctor uses to hold your skin together while it heals (wound closure) depends on your wound. Your doctor may use stitches (sutures), leilani, and glue (skin adhesives). Do not try to remove your wound closures unless your doctor tells you to do that. Do not soak your wound in water. This information is not intended to replace advice given to you by your health care provider. Make sure you discuss any questions you have with your health care provider. Document Released: 06/27/2010 Document Revised: 08/12/2018 Document Reviewed: 07/07/2018 Retrace Patient Education 2020 [employer]. 05/27/2022 12:47:15 Wrist Sprain, Adult Wrist Sprain, Adult A wrist sprain is a stretch or tear in the strong, fibrous tissues (ligaments) that connect your wrist bones. There are three types of wrist sprains: Grade 1. In this type of sprain, the ligament is stretched more than normal. Grade 2. In this type of sprain, the ligament is partially torn. You may be able to move your wrist, but not very much. Grade 3. In this type of sprain, the ligament or muscle is completely torn. You may find it difficult or extremely painful to move your wrist even a little. What are the causes? A wrist sprain can be caused by using the wrist too much during sports, exercise, or at work. It can also happen with a fall or during an accident. What increases the risk? This condition is more likely to occur in people: With a previous wrist or arm injury. With poor wrist strength and flexibility. Who play contact sports, such as football or soccer. Who play sports that may result in a fall, such as skateboarding, biking, skiing, or snowboarding. Who do not exercise regularly. Who use exercise equipment that does not fit well. What are the signs or symptoms? Symptoms of this condition include: Pain in the wrist, arm, or hand. Swelling or bruised skin near the wrist, hand, or arm. The skin may look yellow or kind of blue. Stiffness or trouble moving the hand. Hearing a pop or feeling a tear at the time of the injury. A warm feeling in the skin around the wrist. How is this diagnosed? This condition is diagnosed with a physical exam. Sometimes an X-ray is taken to make sure a bone did not break. If your health care provider thinks that you tore a ligament, he or she may order an MRI of your wrist. How is this treated? This condition is treated by resting and applying ice to your wrist. Additional treatment may include: Medicine for pain and inflammation. A splint to keep your wrist still (immobilized). Exercises to strengthen and stretch your wrist. Surgery. This may be done if the ligament is completely torn. Follow these instructions at home: If you have a splint: Do not put pressure on any part of the splint until it is fully hardened. This may take several hours. Wear the splint as told by your health care provider. Remove it only as told by your health care provider. Loosen the splint if your fingers tingle, become numb, or turn cold and blue. If your splint is not waterproof: ?Do not let it get wet. ?Cover it with a watertight covering when you take a bath or a shower. Keep the splint clean. Managing pain, stiffness, and swelling If directed, put ice on the injured area. ?If you have a removable splint, remove it as told by your health care provider. ?Put ice in a plastic bag. ?Place a towel between your skin and the bag or between the splint and the bag. ?Leave the ice on for 20 minutes, 2 3 times per day. Move your fingers often to avoid stiffness and to lessen swelling. Raise (elevate) the injured area above the level of your heart while you are sitting or lying down. Activity Rest your wrist. Do not do things that cause pain. Return to your normal activities as told by your health care provider. Ask your health care provider what activities are safe for you. Do exercises as told by your health care provider. General instructions Take bdqd-dil-bivhzkg and prescription medicines only as told by your health care provider. Do not use any products that contain nicotine or tobacco, such as cigarettes and e-cigarettes. These can delay healing. If you need help quitting, ask your health care provider. Ask your health care provider when it is safe to drive if you have a splint. Keep all follow-up visits as told by your health care provider. This is important. Contact a health care provider if: Your pain, bruising, or swelling gets worse. Your skin becomes red, gets a rash, or has open sores. Your pain does not get better or it gets worse. Get help right away if: You have a new or sudden sharp pain in the hand, arm, or wrist. You have tingling or numbness in your hand. Your fingers turn white, very red, or cold and blue. You cannot move your fingers. This information is not intended to replace advice given to you by your health care provider. Make sure you discuss any questions you have with your health care provider. Document Released: 05/03/2015 Document Revised: 08/12/2018 Document Reviewed: 03/18/2017 Retrace Patient Education 2020 [employer]. Follow Up Care 05/27/2022 11:11:30 With:[employer] [facility]: [facility] [phone] Address:Unknown When:05/30/2022 12:35:57 [facility]09-14-2022 Evaluation + Plan noteExtracted from: Title:ED Note Author:Jareth Childs PA-C te:05/27/22 Wrist sprain (S63.509A: Unsp ecified sprain of unspecified wrist, initial encounter) Orders: Splint Application Wrist XR Wrist 3+ Views Left Future Appointments Appointment Date:05/28/2022 03:30:00 PM Scheduled Provider:Yancy MOHAMUD CNP Location:[facility] Occupational Health Appointment Type:[facility] Follow up [facility] ([facility]) Appointment Date:06/04/2022 08:00:00 AM Scheduled Provider: Location:.[facility] Appointment Type:US Duplex Procedures ([facility]) Appointment Date:06/22/2022 11:30:00 AM Scheduled Provider:Alexa Mckee MD Location[facility] Appointment Type:Vascular Follow Up (FT) Future Scheduled Tests Laboratory* B-Type Natriuretic Peptide 03/17/22 * Comprehensive Metabolic Panel 03/17/22 * Lipid Panel 03/17/22 Radiology* US LE Venous Duplex Insufficiency Bilat 06/04/22 * US LE Venous Duplex Bilateral 03/23/22 [facility]09-13-2022 Hospital Discharge instructions Patient Education 05/26/2022 16:32:15 Head Injury, Adult Head Injury, Adult There are many types of head injuries. Head injuries can be as minor as a bump, or they can be a serious medical issue. More severe head injuries include: A jarring injury to the brain (concussion). A bruise (contusion) of the brain. This means there is bleeding in the brain that can cause swelling. A cracked skull (skull fracture). Bleeding in the brain that collects, clots, and forms a bump (hematoma). After a head injury, most problems occur within the first 24 hours, but side effects may occur up to 7 10 days after the injury. It is important to watch your condition for any changes. You may need to be observed in the emergency department or urgent care, or you may be admitted to the hospital. What are the causes? There are many possible causes of a head injury. A serious head injury may be caused by a car accident, bicycle or motorcycle accidents, sports injuries, and falls. What are the symptoms? Symptoms of a head injury include a contusion, bump, or bleeding at the site of the injury. Other physical symptoms may include: Headache. Nausea or vomiting. Dizziness. Feeling tired. Being uncomfortable around bright lights or loud noises. Seizures. Trouble being awakened. Fainting. Mental or emotional symptoms may include: Irritability. Confusion and memory problems. Poor attention and concentration. Changes in eating or sleeping habits. Anxiety or depression. How is this diagnosed? This condition can usually be diagnosed based on your symptoms, a description of the injury, and a physical exam. You may also have imaging tests done, such as a CT scan or MRI. How is this treated? Treatment for this condition depends on the severity and type of injury you have. The main goal of treatment is to prevent complications and to allow the brain time to heal. Mild head injury If you have a mild head injury, you may be sent home and treatment may include: Observation. A responsible adult should stay with you for 24 hours after your injury and check on you often. Physical rest. Brain rest. Pain medicines. Severe head injury If you have a severe head injury, treatment may include: Close observation. This includes hospitalization with frequent physical exams. Medicines to relieve pain, prevent seizures, and decrease brain swelling. Breathing support. This may include using a ventilator. Treatments to manage the swelling inside the brain. Brain surgery. This may be needed to: ?Remove a blood clot. ?Stop the bleeding. ?Remove a part of the skull to allow room for the brain to swell. Follow these instructions at home: Activity Rest and avoid activities that are physically hard or tiring. Make sure you get enough sleep. Limit activities that require a lot of thought or attention, such as: ?Watching TV. ?Playing memory games and puzzles. ?Job-related work or homework. ?Working on the computer, using social media, and texting. Avoid activities that could cause another head injury, such as playing sports, until your health care provider approves. Having another head injury, especially before the first one has healed, can bedangerous. Ask your health care provider when it is safe for you to return to your regular activities, including work or school. Ask your health care provider for a jljz-wg-xuly plan for gradually returning to activities. Ask your health care provider when you can drive, ride a bicycle, or use heavy machinery. Your ability to react may be slower after a brain injury. Do not do these activities if you are dizzy. Lifestyle Do not drink alcohol until your health care provider approves. Do not use drugs. Alcohol and certain drugs may slow your recovery and can put you at risk of further injury. If it is harder than usual to remember things, write them down. If you are easily distracted, try to do one thing at a time. Talk with family members or close friends when making important decisions. Tell your friends, family, a trusted colleague, and meat counter worker about your injury, symptoms, and restrictions. Have them watch for any new or worsening problems. General instructions Take vcne-vur-lfgcqxh and prescription medicines only as told by your health care provider. Have someone stay with you for 24 hours after your head injury. This person should watch you for any changes in your symptoms and be ready to seek medical help. Keep all follow-up visits as told by your health care provider. This is important. How is this prevented? Work on improving your balance and strength to avoid falls. Wear a seatbelt when you are in a moving vehicle. Wear a helmet when riding a bicycle, skiing, or doing any other sport or activity that has a risk of injury. If you drink alcohol: ?Limit how much you use to: ?0 1 drink a day for women. ?0 2 drinks a day for men. ?Be aware of how much alcohol is in your drink. In the [place] one drink equals one 12 oz bottle of beer (355 mL), one 5 oz glass of wine (148 mL), or one 1 oz glass of hard liquor (44 mL). Take safety measures in your home, such as: ?Removing clutter and tripping hazards from floors and stairways. ?Using grab bars in bathrooms and handrails by stairs. ?Placing non-slip mats on floors and in bathtubs. ?Improving lighting in dim areas. Get help right away if: You have: ?A severe headache that is not helped by medicine. ?Trouble walking or weakness in your arms and legs. ?Clear or bloody fluid coming from your nose or ears. ?Changes in your vision. ?A seizure. You lose your balance. You vomit. Your pupils change size. Your speech is slurred. Your dizziness gets worse. You faint. You are sleepier than normal and have trouble staying awake. Your symptoms get worse. These symptoms may represent a serious problem that is an emergency. Do not wait to see if the symptoms will go away. Get medical help right away. Call your local emergency services (911 in the [place] Do not drive yourself to the hospital. Summary Head injuries can be minor or they can be a serious medical issue requiring immediate attention. Treatment for this condition depends on the severity and type of injury you have. Ask your health care provider when it is safe for you to return to your regular activities, including work or school. Head injury prevention includes wearing a seat belt in a motor vehicle, using a helmet on a bicycle, limiting alcohol use, and taking safety measures in your home. This information is not intended to replace advice given to you by your health care provider. Make sure you discuss any questions you have with your health care provider. Document Released: 08/30/2006 Document Revised: 09/27/2019 Document Reviewed: 09/22/2019 [employer] Patient Education 2020 [employer] 05/26/2022 16:32:15 Concussion, Adult Concussion, Adult A concussion is a brain injury from a hard, direct hit (trauma) to the head or body. This direct hit causes the brain to shake quickly back and forth inside the skull. This can damage brain cells andcause chemical changes in the brain. A concussion may also be known as a mild traumatic brain injury (TBI). Concussions are usually not life-threatening, but the effects of a concussion can be serious. If you have a concussion, you should be very careful to avoid having a second concussion. What are the causes? This condition is caused by: A direct hit to your head, such as: ?Running into another player during a game. ?Being hit in a fight. ?Hitting your head on a hard surface. Sudden movement of your body that causes your brain to move back and forth inside the skull, such as in a car crash. What are the signs or symptoms? The signs of a concussion can be hard to notice. Early on, they may be missed by you, family members, and health care providers. You may look fine on the outside but may act or feel differently. Symptoms are usually temporary and most often improve in 7 10 days. Some symptoms appear right away, but other symptoms may not show up for hours or days. If your symptoms last longer than normal, you may have post-concussion syndrome. Every head injury is different. Physical symptoms Headaches. This can include a feeling of pressure in the head or migraine-like symptoms. Tiredness (fatigue). Dizziness. Problems with coordination or balance. Vision or hearing problems. Sensitivity to light or noise. Nausea or vomiting. Changes in eating or sleeping patterns. Numbness or tingling. Seizure. Mental and emotional symptoms Memory problems. Trouble concentrating, organizing, or making decisions. Slowness in thinking, acting or reacting, speaking, or reading. Irritability or mood changes. Anxiety or depression. How is this diagnosed? This condition is diagnosed based on: Your symptoms. A description of your injury. You may also have tests, including: Imaging tests, such as a CT scan or MRI. Neuropsychological tests. These measure your thinking, understanding, learning, and remembering abilities. How is this treated? Treatment for this condition includes: Stopping sports or activity if you are injured. If you hit your head or show signs of concussion: ?Do not return to sports or activities the same day. ?Get checked by a health care provider before you return to your activities. Physical and mental rest and careful observation, usually at home. Gradually return to your normal activities. Medicines to help with symptoms such as headaches, nausea, or difficulty sleeping. ?Avoid taking opioid pain medicine while recovering from a concussion. Avoiding alcohol and drugs. These may slow your recovery and can put you at risk of further injury. Referral to a concussion clinic or rehabilitation center. Recovery from a concussion can take time. How fast you recover depends on many factors. Return to activities only when: Your symptoms are completely gone. Your health care provider says that it is safe. Follow these instructions at home: Activity Limit activities that require a lot of thought or concentration, such as: ?Doing homework or job-related work. ?Watching TV. ?Working on the computer or phone. ?Playing memory games and puzzles. Rest. Rest helps your brain heal. Make sure you: ?Get plenty of sleep. Most adults should get 7 9 hours of sleep each night. ?Rest during the day. Take naps or rest breaks when you feel tired. Avoid physical activity like exercise until your health care provider says it is safe. Stop any activity that worsens symptoms. Do not do high-risk activities that could cause a second concussion, such as riding a bike or playing sports. Ask your health care provider when you can return to your normal activities, such as school, work, athletics, and driving. Your ability to react may be slower after a brain injury. Never do these activities if you are dizzy. Your health care provider will likely give you a plan for gradually returning to activities. General instructions Take tqag-szs-pqhlwns and prescription medicines only as told by your health care provider. Some medicines, such as blood thinners (anticoagulants) and aspirin, may increase the risk for complications, such as bleeding. Do not drink alcohol until your health care provider says you can. Watch your symptoms and tell others around you to do the same. Complications sometimes occur after a concussion. Older adults with a brain injury may have a higher risk of serious complications. Tell your meat counter worker, teachers, school nurse, school counselor, assistant coach, or sports athletic trainer about your injury, symptoms, and restrictions. Keep all follow-up visits as told by your health care provider. This is important. How is this prevented? Avoiding another brain injury is very important. In rare cases, another injury can lead to permanent brain damage, brain swelling, or . The risk of this is greatest during the first 7 10 days after a head injury. Avoid injuries by: Stopping activities that could lead to a second concussion, such as contact or recreational sports,until your health care provider says it is okay. Taking these actions once you have returned to sports or activities: ?Avoiding plays or moves that can cause you to crash into another person. This is how most concussions occur. ?Following the rules and being respectful of other players. Do not engage in violent or illegal plays. Getting regular exercise that includes strength and balance training. Wearing a properly fitting helmet during sports, biking, or other activities. Helmets can help protect you from serious skull and brain injuries, but they do not protect you from a concussion. Even when wearing a helmet, you should avoid being hit in the head. Contact a health care provider if: Your symptoms get worse or they do not improve. You have new symptoms. You have another injury. Get help right away if: You have severe or worsening headaches. You have weakness or numbness in any part of your body. You are confused. Your coordination gets worse. You vomit repeatedly. You are sleepier than normal. Your speech is slurred. You cannot recognize people or places. You have a seizure. It is difficult to wake you up. You have unusual behavior changes. You have changes in your vision. You lose consciousness. Summary A concussion is a brain injury that results from a hard, direct hit (trauma) to your head or body. You may have imaging tests and neuropsychological tests to diagnose a concussion. Treatment for this condition includes physical and mental rest and careful observation. Ask your health care provider when you can return to your normal activities, such as school, work, athletics, and driving. Get help right away if you have a severe headache, weakness on one side of the body, seizures, behavior changes, changes in vision, or if you are confused or sleepier than normal. This information is not intended to replace advice given to you by your health care provider. Make sure you discuss any questions you have with your health care provider. Document Released: 11/19/2004 Document Revised: 04/20/2019 Document Reviewed: 04/20/2019 [employer] Patient Education 2020 [employer] 05/26/2022 16:32:15 Abrasion Abrasion An abrasion is a cut or a scrape on the outer surface of the skin. An abrasion does not go through all the layers of the skin. It is important to care for your abrasion properly to prevent infection. What are the causes? This condition is caused by falling on or gliding across the ground or another surface. When your skin rubs on something, the outer and inner layers of skin may rub off. What are the signs or symptoms? The main symptom of this condition is a cut or a scrape. The scrape may be bleeding, or it may appear red or pink. If the abrasion was caused by a fall, there may be a bruise under the cut or scrape. How is this diagnosed? An abrasion is diagnosed with a physical exam. How is this treated? Treatment for this condition depends on how large and deep the abrasion is. In most cases: Your abrasion will be cleaned with water and mild soap. This is done to remove any dirt or debris (such as particles of glass or rock) that may be stuck in the wound. An antibiotic ointment may be applied to the abrasion to help prevent infection. A bandage (dressing) may be placed on the abrasion to keep it clean. You may also need a tetanus shot. Follow these instructions at home: Medicines Take or apply ljfe-vzh-bekmfmf and prescription medicines only as told by your health care provider. If you were prescribed an antibiotic medicine, apply it as told by your health care provider. Wound care Clean the wound 2 3 times a day, or as directed by your health care provider. To do this, wash the wound with mild soap and water, rinse off the soap, and pat the wound dry with a clean towel. Do notrub the wound. Keep the dressing clean and dry as told by your health care provider. There are many different ways to close and cover a wound. Follow instructions from your health careprovider about: ?Caring for your wound. ?Changing and removing your dressing. You may have to change your dressing one or more times a day,or as directed by your health care provider. Check your wound every day for signs of infection. Check for: ?Redness, particularly a red streak that spreads out from the wound. ?Swelling or increased pain. ?Warmth. ?Fluid, pus, or a bad smell. If directed, put ice on the injured area to reduce pain and swelling: ?Put ice in a plastic bag. ?Place a towel between your skin and the bag. ? Leave the ice on for 20 minutes, 2 3 times a day. General instructions Do not take baths, swim, or use a hot tub until your health care provider says it is okay to do so. If possible, raise (elevate) the injured area above the level of your heart while you are sitting or lying down. This will reduce pain and swelling. Keep all follow-up visits as directed by your health care provider. This is important. Contact a health care provider if: You received a tetanus shot, and you have swelling, severe pain, redness, or bleeding at the injection site. Your pain is not controlled with medicine. You have redness, swelling, or more pain at the site of your wound. Get help right away if: You have a red streak spreading away from your wound. You have a fever. You have fluid, blood, or pus coming from your wound. You notice a bad smell coming from your wound or your dressing. Summary An abrasion is a cut or a scrape on the outer surface of the skin. An abrasion does not go through all the layers of the skin. Care for your abrasion properly to prevent infection. Clean the wound with mild soap and water 2 3 times a day. Follow instructions from your health careprovider about taking medicines and changing your bandage (dressing). Contact your health care provider if you have redness, swelling or more pain in the wound area. Get help right away if you have a fever or if you have fluid, blood, pus, a bad smell, or a red streak coming from the wound. This information is not intended to replace advice given to you by your health care provider. Make sure you discuss any questions you have with your health care provider. Document Released: 06/09/2006 Document Revised: 08/12/2018 Document Reviewed: 04/13/2018 [employer] Patient Education 2020 [employer]. Follow Up Care 05/26/2022 14:55:06 With:Carey Courtney Address: [address] [place] [phone] Business (1) When:05/29/2022 15:48:24 Comments:Follow-up with your primary care provider in 3 to 5 days. If symptoms worsen, do not improve, or new symptoms arise please report back to emergency department for further evaluation. [facility]09-13-2022 Evaluation + Plan noteExtracted from: Title:ED Note Author:Jaciel Miller PA-C te:05/26/22 Facial abrasion (S00.81XA: A brasion of other part of head, initial encounter) Fall (W19.XXXA: Unspecified fall, initial encounter) Head injury, closed, without LOC (S09.90XA: Unspecified injury of head, initial encounter) Orders: tetanus/diphtheria/pertussis, acel (Tdap), 0.5 mL, Injection, Intramuscular-Immunization, Once, Stop date 05/26/22 15:48:00 EDT, STAT, Start date 05/26/22 15:48:[address] Head or Brain w/o Contrast CT Spine Cervical w/o Contrast Wound Care Routine XR Hip Bilat 2 Views + Pelvis Future Appointments Appointment Date:06/04/2022 08:00:00 AM Scheduled Provider: Location:[facility] Appointment Type:US Duplex Procedures (FT) Appointment Date:06/22/2022 11:30:00 AM Scheduled Provider:Alexa Mckee MD Location:[facility] Appointment Type:Vascular Follow Up (FT) Future Scheduled Tests Laboratory* B-Type Natriuretic Peptide 03/17/22 * Comprehensive Metabolic Panel 03/17/22 * Lipid Panel 03/17/22 Radiology* US LE Venous Duplex Insufficiency Bilat 06/04/22 * US LE Venous Duplex Bilateral 03/23/22 [facility]08-26-2022 Evaluation + Plan noteExtracted from: Title:Post-anesthesia - General Author:Thomas Ratliff DO Date:05/08/22 Plan Transfer/ Discharge: Condition stable. Extracted from: Title:Pre-anesthesia - Endoscopy Author:Thomas Pizarro Jr., DO Date:05/08/22 Plan [employer] [employer] (ASA) physical status classification: Class II. Anesthetic Preoperative Plan Anesthesia: General. . Anesthetic plan, risks, benefits, and alternatives discussed with the patient and/or family. Patient verbalized understanding. Future Appointments Appointment Date:05/14/2022 03:30:00 PM Scheduled Provider:Alexa Mckee MD Location:[facility] Appointment Type:Vascular New Patient (FT) Future Scheduled Tests Laboratory* B-Type Natriuretic Peptide 03/17/22 * Comprehensive Metabolic Panel 03/17/22 * Lipid Panel 03/17/22 Radiology* US LE Venous Duplex Bilateral 03/23/22 [facility]08-26-2022 Hospital Discharge instructions Patient Education 05/08/2022 10:07:53 Colonoscopy, Care After Surgery [place] (CUSTOM) Colonoscopy Care After Surgery Please read the instructions outlined below and refer to this sheet in the next few weeks. These discharge instructions provide you with general information on caring for yourself after you leave thespital. Your doctor may also give you specific instructions. While your treatment has been planned according to the most current medical practices available, unavoidable complications occasionally occur. If you have any problems or questions after discharge, please call your doctor. ACTIVITY You may resume your regular activity, but move at a slower pace for the next 24 hours. Take frequent rest periods for the next 24 hours. Walking will help get rid of the air and reduce the bloated feeling in your abdomen (belly). No driving for 24 hours (because of the anesthesia (medicine) used during the test). You may shower. Do not sign any important legal documents or operate any machinery for 24 hours (because of the anesthesia used during the test). NUTRITION Drink plenty of fluids. You may resume your normal diet as instructed by your doctor. Begin with a light meal and progress to your normal diet. Heavy or fried foods are harder to digestand may make you feel nauseated (sick to your stomach). Avoid alcoholic beverages for 24 hours or as instructed. MEDICATIONS You may resume your normal medications unless your doctor tells you otherwise. WHAT YOU CAN EXPECT TODAY Some feelings of bloating in the abdomen. Passage of more gas than usual. Spotting of blood in your stool or on the toilet paper. IF YOU HAD POLYPS REMOVED DURING THE COLONOSCOPY: No aspirin products for 7 days or as instructed. No alcohol for 7 days or as instructed. Eat a soft diet for the next 24 hours. FOLLOW-UP Your doctor will discuss the results of your test with you. SEEK IMMEDIATE MEDICAL ATTENTION IF: There is more than a spotting of blood in your stool. There is abdominal distention (your abdomen is swollen). There is vomiting. You have a temperature over 101.5 F. There is abdominal pain or discomfort that is severe or gets worse throughout the day. Follow Up Care 04/27/2022 15:46:02 With:Sreedhar ARENAS Address: [address], [address] [place] [address]- Business (1) When:7 to 10 days [facility]07-05-2022 Evaluation + Plan note Future Scheduled Tests Laboratory* B-Type Natriuretic Peptide 03/17/22 * Comprehensive Metabolic Panel 03/17/22 * Lipid Panel 03/17/22 Radiology* CT Venogram Abdomen and Pelvis w/ Contrast 06/22/22 * US LE Venous Duplex Bilateral 03/23/22 [facility]08-22-2020 Evaluation + Plan note Future Appointments Appointment Date:04/29/2022 01:00:00 PM Scheduled Provider: Location:[facility].CARDIO Appointment Type:CV Echo (FT) Appointment Date:05/04/2022 10:00:00 AM Scheduled Provider:Dania MCINTYRE CNP Location:[facility]Cardiology Clinic Appointment Type:Cardiology Follow Up (FT) Appointment Date:05/08/2022 10:00:00 AM Scheduled Provider: Location:[facility] Appointment Type:Surgery FT Appointment Date:05/14/2022 03:30:00 PM Scheduled Provider:Alexa Mckee MD Location:[facility].Vascular Clinic Appointment Type:Vascular New Patient (FT) Future Scheduled Tests Laboratory* B-Type Natriuretic Peptide 03/17/22 * Comprehensive Metabolic Panel 03/17/22 * Lipid Panel 03/17/22 Radiology* Echo Transthoracic Complete 04/29/22 * US LE Venous Duplex Bilateral 03/23/22 [facility] General Surgery [place] [id number] Evaluation + Plan note Future Appointments Appointment Date:04/13/2022 01:00:00 PM Scheduled Provider: Location:FT.CARDIO Appointment Type:CV Echo (FT) Appointment Date:04/14/2022 03:30:00 PM Scheduled Provider:Dania MCINTYRE CNP Location:[facility] Appointment Type:Cardiology Follow Up (FT) Future Scheduled Tests Laboratory* B-Type Natriuretic Peptide 03/17/22 * Comprehensive Metabolic Panel 03/17/22 * Lipid Panel 03/17/22 Radiology* Echo Transthoracic Complete 04/13/22 * US [facility]lex [facility]ments Appointment Date:04/14/2022 03:30:00 PM Scheduled Provider:Dania MCINTYRE CNP [facility] Type:Cardiology Follow Up (FT) Future Scheduled Tests Laboratory* B-Type Natriuretic Peptide 03/17/22 * Comprehensive Metabolic Panel 03/17/22 * Lipid Panel 03/17/22 [facility] App[facility]ments Appointment Date:04/27/2022 03:00:00 PM Scheduled Provider:Sreedhar ARENAS MD Location:[facility] Appointment Type: New 30 Appointment Date:04/29/2022 01:00:00 PM Scheduled Provider: [facility] Type:CV Echo (FT) Appointment Date:05/04/2022 10:00:00 AM Scheduled Provider:Dania MCINTYRE CNP [facility] Type:Cardiology Follow Up (FT) Future Scheduled Tests Laboratory* B-Type Natriuretic Peptide 03/17/22 * Comprehensive Metabolic Panel 03/17/22 * Lipid Panel 03/17/22 Radiology* Echo Transthoracic Complete 04/29/22 * US LE Venous Duplex Bilateral 03/23/22 [facility] App[facility]ments Appointment Date:05/04/2022 10:00:00 AM Scheduled Provider:Dania MCINTYRE CNP [facility] Type:Cardiology Follow Up (FT) Appointment Date:05/08/2022 10:00:00 AM Scheduled Provider: Location:[facility] Appointment Type:Surgery FT Appointment Date:05/14/2022 03:30:00 PM Scheduled Provider:Alexa Mckee MD [facility] Type:Vascular New Patient (FT) Future Scheduled Tests Laboratory* B-Type Natriuretic Peptide 03/17/22 * Comprehensive Metabolic Panel 03/17/22 * Lipid Panel 03/17/22 Radiology* US LE Venous Duplex Bilateral 03/23/22 [facility] App[facility]ments Appointment Date:05/08/2022 10:00:00 AM Scheduled Provider: Location:[facility] Appointment Type:Surgery FT Appointment Date:05/14/2022 03:30:00 PM Scheduled Provider:Alexa Mckee MD [facility] Type:Vascular New Patient (FT) Future Scheduled Tests Laboratory* B-Type Natriuretic Peptide 03/17/22 * Comprehensive Metabolic Panel 03/17/22 * Lipid Panel 03/17/22 Radiology* US LE Venous Duplex Bilateral 03/23/22 [facility] Appointments Appointment Date:05/21/2022 03:40:00 PM Scheduled Provider:Sreedhar ARENAS MD Location:[facility] Appointment Type: Post Op 15 Appointment Date:06/22/2022 11:30:00 AM Scheduled Provider:Alexa Mckee MD [facility] Type:Vascular Follow Up (FT) Future Scheduled Tests Laboratory* B-Type Natriuretic Peptide 03/17/22 * Comprehensive Metabolic Panel 03/17/22 * Lipid Panel 03/17/22 Radiology* US LE Venous Duplex Bilateral 03/23/22 [facility] Appointments Appointment Date:06/22/2022 11:30:00 AM Scheduled Provider:Alexa Mckee MD [facility] Type:Vascular Follow Up (FT) Future Scheduled Tests Laboratory* B-Type Natriuretic Peptide 03/17/22 * Comprehensive Metabolic Panel 03/17/22 * Lipid Panel 03/17/22 Radiology* US LE Venous Duplex Bilateral 03/23/22 [facility] No data available for this section [facility] No data available for this section [facility] No data available for this section [facility] Purpose Family History No Family History Records Found Advance Directives No Advanced Directives Records FoundNo Advanced Directives Records Found Additional Source Comments Care Team (unrecognized sect ion and content) Personnel Name: Carey Courtney MD Address: [address] [place] [address] Personnel Name: Carey Courtney MD Address: [address] [place] [address] Personnel Name: Carey Courtney MD Address: [address] [place] [address] Personnel Name: Carey Courtney MD Address: [address] [place] [address] Personnel Name: Carey Courtney MD Address: [address] [place] [address] Personnel Name: Carey Courtney MD Address: [address] [place] [address] Personnel Name: Carey Courtney MD Address: [address] [place] [address] Personnel Name: Carey Courtney MD Address: [address] [place] [address] Personnel Name: Carey Courtney MD Address: [address] [place] [address] Personnel Name: Carey Courtney MD Address: [address] [place] [address] Personnel Name: Craey Courtney MD Address: [address] [place] [address] Personnel Name: Carey Courtney MD Address: Address: [address] [place] [address] Personnel Name: Carey Courtney MD Address: Address: [address] [place] [address] Personnel Name: Carey Courtney MD Address: Address: [address] [place] [address] Personnel Name: Carey Courtney MD Address: Address: [address] [place] [address] Personnel Name: Carey Courtney MD Address: Address: [address] [place] [address] Personnel Name: Carey Courtney MD Address: Address: [address] [place] [address] Personnel Name: Carey Courtney MD Address: Address: [address] [place] [address] Personnel Name: Carey Courtney MD Address: Address: [address] [place] [address] INFORMATION SOURCE (unrecogn ized section and content) DATE CREATED AUTHOR 11/27/2023 [facility] DATE CREATED AUTHOR AUTHOR'S ORGANIZ ATION 02/13/2024 [facility] FOR RECORDS PERTAINING TO PATIENTS WHO ARE OR HAVE BEEN ENROLLED IN A CHEMICAL DEPENDENCY/SUBSTANCEABUSE PROGRAM, SOME INFORMATION MAY BE OMITTED. This clinical summary was aggregated from multiple sources. Caution should be exercised in using it in the provision of clinical care. This summary normalizes information from multiple sources, and as a consequence, information in this document may materially change the coding, format and clinical context of patient data. In addition, data may be omitted in some cases. CLINICAL DECISIONS SHOULD BE BASED ON THE PRIMARY CLINICAL RECORDS. [facility] [employer] [facility]. provides no warranty or guarantee of the accuracy or completeness of information in this document.
[2024-02-17 06:25] LABS: Basophils Percent Auto 0.5 % (0.2-2.0); Eosinophils Absolute Auto 0.1 10^3/uL (0.0-0.7); Eosinophils Percent Auto 1.7 % (0.9-7.0); Hematocrit 38.8 % (36.0-48.0); Hemoglobin 12.6 g/dL (12.0-16.0); Immature Granulocytes Abs Auto 0.02 10^3/uL (0.00-0.03); Immature Granulocytes Pct Auto 0.2 % (0.0-0.5); Lymphocytes Absolute Auto 2.7 10^3/uL (1.2-3.8); Lymphocytes Percent Auto 32.3 % (20.5-60.0); Mean Corpuscular HGB Conc 32.5 g/dL (29.9-35.2); Mean Corpuscular Hemoglobin 30.8 pg (26.7-34.0); Mean Corpuscular Volume 94.9 fL (81.0-99.0); Mean Platelet Volume 10.4 fL (9.5-13.5); Monocytes Absolute Auto 0.4 10^3/uL (0.3-0.8); Neutrophils Absolute Auto 5.1 10^3/uL (1.4-6.5); Neutrophils Percent Auto 60.3 % (43.0-75.0); Platelet Count 243 10^3/uL (150-450); Red Blood Count 4.09 10^6/uL (4.20-5.40); Red Cell Distribution Width 13.2 % (11.0-15.0); White Blood Count 8.5 10^3/uL (4.0-11.0)
[2024-02-17 06:34] LABS: Glucometer 123 mg/dL (74-106)
[2024-02-17 06:38] LABS: HCG Qualitative NEGATIVE (NEGATIVE)
[2024-02-17] MEDS: LACTATED RINGER'S SOLUTION 1,000 ML 50 ML IV ×2 (06:57→10:16)
[2024-02-17] MEDS: CEFAZOLIN SODIUM/DEXTROSE,ISO 2 GM/50 ML PIGGYBACK IV (07:34)
--- NOTE | 2024-02-17 09:55 | PM.ORONB ---
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 She was initially treated with bracing, physical therapy, shoe and activity modification as well as NSAIDs such as meloxicam. Unfortunately she did not respond to nonsurgical treatment and an MRI of was obtained which showed tear of the peroneal tendons. Clinical and x-ray examination demonstrated hindfoot varus with forefoot valgus and subjectively she had symptoms consistent with ankle instability. I had a long discussion with the patient regarding surgical reconstruction and the concern is that if her torn peroneal tendons with or without lateral ankle stabilization could be at high risk for recurrence given her foot architecture. Therefore I recommended deformity correction with calcaneal and first ray osteotomies as well as soft tissue releases and lengthenings in addition to fixing her peroneal tendons. Although her subjective symptoms are consistent with instability her anterior drawer was guarded therefore I recommended stress examination under intraoperative fluoroscopy with repair of the lateral collateral ligaments as needed. I reviewed postoperative recovery/course as well as potential complications, risks and benefits. All questions were answered to her satisfaction patient elected to undergo the above procedures. Intraoperative findings: There is contracture and prominence of the plantar fascia especially the medial band. Hindfoot was then significant varus and the first ray was plantarflexed (reducible valgus). Peroneal tendons with severe tearing and scarring with the brevis being worse than the longus. The brevis having calcified areas in the middle of the tendon. The brevis was so degenerated that a 3 cm portion required to be excised. The longus was aggressively debrided but greater than 50% was normal-appearing tendon. Due to the amount of damage in the brevis decision was made to perform peroneal tendon transfer. Stress examination of the ankle in varus, valgus and anterior drawer was stable. Procedure in detail: Patient is identified preoperative holding by myself which time correct side and site were marked and consent was obtained. Regional anesthesia was administered by the anesthesia team and the patient was brought back to the operating theater and antibiotics were started. Patient was placed on table in a well-padded supine position. General anesthesia was administered and the left lower extremity was prepped and draped in usual sterile fashion. Formal timeout was performed and the left lower extremity was exsanguinated and thigh tourniquet was inflated. Stab incision over the medial aspect of the left in-step at the glabrous skin junction was used followed by blunt dissection and the medial band of the plantar fascia was identified. Trochar and cannula were then placed medial to lateral. A lateral stab incision was made to allow passage of the trochar and cannula. Camera was inserted into the lateral portal and a hook blade was placed into the medial portal. Two thirds of the plantar fascia was released and healthy muscle was noted. The site was flushed with saline and instrumentation was removed. Closure with nylon suture was then undertaken. Fluoroscopy was then used to jemal the incision on the lateral aspect of the posterior calcaneus. Incision was placed anterior to the Achilles and plantar fascia attachment on the calcaneal tubercle in an oblique type fashion. Combination of sharp and blunt dissection gained access to the lateral wall the calcaneus. Blunt dissection was performed along the dorsal aspect and plantar aspect of the calcaneus anterior to the soft tissue attachments of the Achilles and plantar fascia. Hohmann retractors were then placed in these areas and fluoroscopy confirmed the placement of the homing retractors and osteotomy was performed from lateral to medial and was finished with an osteotome. Then the foot was dorsiflexed and the osteotomy was performed again however not across the entire width of the calcaneus. Osteotomies were then performed in succession to remove a wedge of bone from the lateral aspect which aided in deformity correction. Once the osteotomy is performed a lamina advanced registered nurse was placed in the osteotomy and was allowed to stretch the soft tissues while attention was then drawn to the first ray. Incision was placed parallel to the extensor hallucis longus tendon from the first tarsometatarsal joint to the proximal shaft. Combination of sharp and blunt dissection gained access to the first metatarsal base. The first tarsometatarsal joint was identified and marked. Then an osteotomy was performed dorsal to plantar on the first metatarsal base keeping the plantar cortex intact. Then osteotomies were performed in succession while dorsiflexing the first ray to allow for a dorsal wedge of bone to be removed. Osteotomies were performed until valgus was reduced. Once the valgus of the medial column was reduced the osteotomy was fixated with a 12 x 12 mm staple which was implanted according to the manufacture standard directions. Good bony apposition and deformity correction were noted on the table. Attention was then redrawn back to the calcaneus and the lamina advanced registered nurse was removed. I then translated the calcaneal tuberosity laterally and slightly dorsally while closing down the wedge of bone which reduced the hindfoot varus. My outpatient physical therapist assistant then placed a longitudinal incision on the posterior calcaneus and blunt dissection was performed down to bone. Then guidewires were used to temporarily fixate the osteotomy. Fluoroscopy confirmed placement of the wires and deformity correction and there was good bony apposition noted on the table as well as under fluoroscopy. 5.0 headless cannulated screws were then placed according to the manufactures and directions. Fluoroscopy confirmed hardware placement and that the heads of the screws were buried in bone. Deformity correction was noted on the table and the surgical sites were all irrigated with copious saline. Incision was then placed from the distal fibula along the peroneal tendons to the brevis insertion. Combination of sharp and blunt dissection gained access to the peroneal tendons and the sheath was opened. There is normal-appearing tendons at the level of the fibular groove however distally the brevis was severely degenerated thickened and scarred and was roughly 3 times the size of normal peroneal brevis tendon. Aggressive debridement of this tendon revealed that there was no viable tendinous tissue therefore a 3 cm portion of the brevis was excised while tagging the distal and plantar stumps. Attention was then drawn to the longus and a longitudinal tear was noted. The tendon was debrided until only healthy tendon persisted then the foot was held in maximum eversion while the stumps of the brevis were sewn to the longus at physiologic tension. To prevent adhesions and scar formation the tendon transfer was then augmented with a tendon sheath which was sewn to itself around the peroneal tendons distal to the fibular groove. For added stability the allograft was sewn to the tendon proximally and distally. Then under intraoperative fluoroscopy the ankle joint was stressed in varus, valgus and anterior drawer and was notably stable in all planes. All surgical sites were irrigated with copious saline and the incisions were closed in layers. The tourniquet was deflated with a prompt hyperemic response and a dry sterile dressing consisting of Xeroform, 4 x 4's, Kerlix were applied. Multiple layers of cast padding were placed from the forefoot to the popliteal fossa followed by a layer of Terry wrap's then an additional layer of cast padding. Then a posterior splint was applied and was held in maximum eversion with the ankle in neutral and was allowed to dry. The posterior splint was then held in place by a layer of Terry wrap's. Capillary refill to the left toes were brisk. Patient was then transported to the recovery room with vital signs stable and brisk capillary refill to the left toes. Postoperative plan: Discharged home under the family's care. Patient will be prescribed blood thinners due to a family history of DVT -patient is to call the office if there is any difficulty obtaining Eliquis or Xarelto All other prescriptions were also sent to the pharmacy by Dr. Hodges Patient is to be strict nonweightbearing Follow-up in the office within a week for the splint to be removed and to be placed into a cast. Implants: Vilex 5.0 mm cannulated screws x2 Medline 12x12 mm staple Artelon tendon wrap Anesthesia: regional and General-LMA Surgeon: Elías Townsend General Dentist/Owner: Dong Qureshi Estimated blood loss (mL): 25 Pathology: other (peroneal tendon) Condition: stable Disposition: PACU
--- NOTE | 2024-02-17 10:36 | XR_ITS ---
The [address] [address] Patient Name: JAVIER OROSCO MRN: [id number] date: 1975 Sex: F Assigned Patient Location: [facility] Current Patient Location: [facility] Accession/Order Number: [id number] Exam Date: 02/17/2024 11:38 Report Date: 02/19/2024 05:50 At the request of: IRINA FAIR Procedure: XR foot LT min 3V PROCEDURE: XR foot LT min 3V HISTORY: post operative imaging of left foot COMPARISON: XR foot left 08/18/2023 FINDINGS: BONES:Posterior calcaneal osteotomy and realignment with fusion via 2 lag screws. Osteotomy and fixation of proximal first metatarsal via bone staple. SOFT TISSUES:Mild soft tissue swelling. Images were obtained to cast material. EFFUSION:None visible. OTHER: Negative. XR/XR foot LT min 3V IMPRESSION: 1. Postoperative changes of the left foot. Electronically authenticated by: YASMINE TRUJILLO Date: 02/19/2024 05:50
[2024-02-17 11:37] LABS: Glucometer 177 mg/dL (74-106)
--- NOTE | 2024-02-17 12:36 | PC.NURSE ---
c/o left tongue numbness; no open areas noted; anesthesia aware; given ice chips
--- NOTE | 2024-02-17 12:41 | PC.NURSE ---
Up to BSC, non-weight bearing left; voids clear yellow; sitting in recliner
== END 2024-02-17 13:07 | disposition home or self-care (01) ==
PROVIDERS: Anesthesiology; Family Provider Family Medicine; Visit Provider Podiatrist Foot & Ankle Surgery
PROC: (CPT 1464; principal; 2024-02-17 07:30)
DX: M21.172 Varus deformity, not elsewhere classified, left ankle (principal); M21.072 Valgus deformity, not elsewhere classified, left ankle; S86.312A Strain of muscle(s) and tendon(s) of peroneal muscle group at lower leg level, left leg, initial encounter; X58.XXXA Exposure to other specified factors, initial encounter; M25.372 Other instability, left ankle; M24.572 Contracture, left ankle; M62.9 Disorder of muscle, unspecified; M72.2 Plantar fascial fibromatosis; Z98.51 Tubal ligation status; K21.9 Gastro-esophageal reflux disease without esophagitis
CPT/HCPCS: 27691; 28300; 28306; 29893; 36415; 64445; 73630; 76000; 82948; 84703; 85025; 88304; 88311; C1713; C9353

== ENCOUNTER 2024-03-15 11:44 | Outpatient (OUT) | payer OTHER, SELFPAY ==
--- NOTE | 2024-03-15 | XR_ITS ---
The [address] [address] Patient Name: JAVIER OROSCO MRN: [id number] date: 1975 Sex: F Assigned Patient Location: Current Patient Location: Accession/Order Number: [id number] Exam Date: 03/15/2024 11:45 Report Date: 03/17/2024 09:50 At the request of: CAREY SUTTON Procedure: XR foot LT min 3V PROCEDURE: XR foot LT min 3V HISTORY: LEFT FOOT PAIN COMPARISON: XR foot left 02/17/2024 FINDINGS: BONES:Posterior calcaneal osteotomy and fusion via 2 lag screws. Osteotomy and fusion of the proximal first metatarsal head via a single bone staple. Mild callus formation along margins. No change in alignment. SOFT TISSUES:Mild distal dorsal soft tissue swelling. Cast material has been removed. EFFUSION:None visible. OTHER: Negative. XR/XR foot LT min 3V IMPRESSION: 1. Stable surgical changes without evidence of hardware failure or change in alignment. 2. Changes of early bone healing. Electronically authenticated by: YASMINE TRUJILLO Date: 03/17/2024 09:50
--- OUTSIDE RECORDS SUMMARY | 2024-03-15 11:53 | XMS_ITS | CCD ---
Author Organization [facility] Care Team Providers Care Player Development Executive Name Role Phone Carey Courtney Primary Care Physician [phone] CAREY COURTNEY Attending Unavailable NONE, XXXX Attending Unavailable NONE, XXXX Referring Unavailable CAREY TOWNSEND Attending Unavailable CAREY TOWNSEND Referring Unavailable CAREY TOWNSEND Admitting Unavailable Remington Espitia Attending Unavailable Remington Espitia Attending Unavailable Eliceo Coleman Attending Unavailable Eliceo Coleman Attending Unavailable XOCHITL Townsend Attending Provider [phone] Carey Townsend Attending Unavailable Carey Townsend Admitting Unavailable Allergies Allergy Classification Reported Allergen(s) Allergy Type Date of Onset Reaction(s) Facility (20 sources) Sulfonamides (Antibiotic); Translations: [sulfa drugs] Drug allergy Weal (disorder) [facility] Medications Current Medications Medication Drug Class(es) Dates [...] day(s), # 21 cap(s), Refills(s) 0, [facility]acy: [facility], 172, cm, 02/12/24 13:06:00 EDT, Height/Length Dosing, 121, kg, 02/12/24 13:06:00 EDT, Weight Dosing Start Date: 02/12/24 Stop Date: 02/19/24 Status: Ordered Start: 05-08-2023 End: 05-15-2023 take 1 capsule by mouth three times daily Tessalon 100 mg Cap 100 mg = 1 cap(s), Oral, TID, X 7 day(s), # 21 cap(s), Refills(s) 0, Pharmacy: [facility], 172, cm, 05/08/23 13:30:00 EDT, Height/Length Dosing, 115.5, kg, 05/08/23 13:30:00 EDT, Weight Dosing Start Date: 05/08/23 Stop Date: 05/15/23 Status: Ordered brompheniramine maleate 0.4 mg/ml / dextromethorphan hydrobromide 2 mg/ml / pseudoephedrine hydrochloride 6 mg/ml oral solution (3 sources) alpha-Adrenergic Agonist, Uncompetitive N-mngfsq-G-aspartate Receptor Antagonist, Sigma-1 Agonist Start: 05-16-2023 take 5 mL by mouth four times daily Bromfed DM oral syrup 5 mL, Oral, QID for cold symptoms, 200 mL, Refill(s) 0, [facility], 172, cm, 05/16/23 15:12:00 EDT, Height/Length [...] exceed 8 grams/day/single joint of upper extremities, [facility], 173, cm, 08/10/23 12:00:00 EST, Height/Length [...] day(s), # 14 cap(s), Refills(s) 0, Pharmacy: [facility], 172, cm, 05/08/23 13:30:00 EDT, Height/Length [...] nasal route twice daily Flonase 0.05 mg/inh [place] 1 spray(s), Nasal, BID for 7 day(s), 16 gm, Refill(s) 0, each nostril, [facility], 172, cm, 02/12/24 13:06:00 EDT, Height/Length [...] days, # 58 tab(s), Refills(s) 0, Pharmacy: [facility], 173, cm, 08/10/23 12:00:00 EST, Height/Length Dosing, 100, kg, 08/10/23 12:00:00 EST, Weight Dosing Start Date: 08/10/23 Status: Ordered Start: 05-08-2023 End: 05-13-2023 take 2 tablets by mouth once daily predniSONE 20 mg Tab 40 mg = 2 tab(s), Oral, Daily, X 5 day(s), # 10 tab(s), Refills(s) 0, Pharmacy: [facility], 172, cm, 05/08/23 13:30:00 EDT, Height/Length [...] Cough and Congestion, 1 EA, Refill(s) 0, [facility], 172, cm, 05/16/23 15:12:00 EDT, Height/Length [...] Test Name Value Interpretation Reference Range Facility [facility] 02-17-2024 L Specimen: [id number] Received: 02/17/24 Status: MALCOLM Webb Num: [id number] Spec Type: Surgical Subm Dr: Carey Townsend DPM, MS Tissues: A Bone Fragments - Other than Path Fracture (LT PERONEUS LONGUS) Procedures: HE, Gross/Micro L3, Decalcification Age/ Patient Sex Location Account Attending Physician Javier Brown 48/F LABELL [id number] Carey Townsend DPM, MS SPEC NUM: [id number] RECD: 02/17/24 STATUS: [facility] NUM: [id number] MIRNA: 02/17/[address]: Carey Townsend DPM, MS ENTERED: 02/17/[address]: Marily,Lab SPEC TYPE: Surgical DEPT: YANNICK SCHULTZ ORDERED: HE, Gross/Micro L3, Decalcification ORDERED: REBECCA, Gross/Micro L3, Decalcification Pathological Diagnosis Left peroneus longus, excision: -Tenosynovial soft tissue with periosteal portion and the small attached wedge bony portion with apparent patchy irregular thickening, and patchy chondroid metaplasia, including at least 1 focus of nodular fibromatosis-like thickening, 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 Gross Description Received in formalin, labeled with the patient's name, date of and left peroneus longus are 4 pink-white fibrous tissue fragments and bone fragments measuring in aggregate 2.7 x 2.5 x 0.6 cm. Cut sections reveal fibrous and bony surfaces. Heel Cover Splitter sections following decalcification are submitted following decalcification in A1. TW Specimen: [id number] Received: 02/17/24 Status: MALCOLM Webb Num: [id number] Spec Type: Surgical Subm Dr: Carey Townsend,XOCHITL, MS Tissues: A Bone Fragments - Other than Path Fracture (LT PERONEUS LONGUS) Procedures: Fay FERNANDEZ/Micro L3, Decalcification Patient: Javier Brown [id number] (Continued) Specimen: [id number] Received: 02/17/24 (Continued) Signed (signature on file) Dallin Martell MD 02/21/24 1626 Specimen: [id number] Received: 02/17/24 Status: MALCOLM Webb Num: [id number] Spec Type: Surgical Subm Dr: Carey Townsend,DPM, MS Tissues: A Bone Fragments - Other than Path Fracture (LT PERONEUS LONGUS) Procedures: REBECCA Gross/Cristal L3, Decalcification Patient: Javier Brown [id number] (Continued) Specimen: [id number] Received: 02/17/24 (Continued) CPT Codes 14067 [id number] Specimen: [id number] Received: 02/17/24 Status: MALCOLM Webb Num: [id number] Spec Type: Surgical Subm Dr: Carey Townsend,DPM, MS Tissues: A Bone Fragments - Other than Path Fracture (LT PERONEUS LONGUS) Procedures: REBECCA Gross/Cristal L3, Decalcification Patient: Javier Brown [id number] (Continued) Signed (signature on file) Dallin Martell MD 02/21/24 1626 Normal [facility] Family Medicine Office/Clini c Noteon 02-13-2024 Family [...] with voice recognition software. Occasional wrong-word or ?psmph-k-uqvh? substitutions may have occurred due to the inherent limitations of voice recognition software. 48-year-old female presents to [facility] care today with chief complaint of cough [...] Ankle reconstructive surgery with Dr. Townsend in [place]. Patient does not wish to be sick [...] Follow-up With When Contact Information Dusty ALVAREZ, Peter D, FAM [address] [place] [address]- Additional Instructions: Patient Education BMI for Adults Upper Respiratory Infection, Adult Problem List/Past Medical History Ongoing Acoustic neuroma BMI 39.0-39.9,adult Cerebral ventriculomegaly Chronic pain syndrome Depression Mixed conductive and sensorineural hearing loss Screening for malignant neoplasm of colon Historical No qualifying data Pro (more content not included)... [facility] Comment on above: Result Comment: Elec tronically Signed By: Jared MARTINEZ, Eliceo Archer\.br\Date and Time Signed: 02/13/24 20:37 EDT Patient Educationon 02-13-20 Patient Education Infectious Disease Upper Respiratory Infection, [...] to help relieve symptoms, such as: ? Bvfy-brj-oalhpnp cold medicines. ? Cough suppressants. Coughing is [...] other clear broths. General instructions ? Take qsiq-rqx-gbdzgbg and prescription medicines only as told by [...] and water are not available, use hand noteman. ? Avoid touching your mouth, face, eyes, [...] Get help (more content not included)... Normal [facility] Ambulatory Visit Summaryon 0 02-12-2024 Ambulatory Visit Summary JAVIER BROWN :1975 Visit Date:02/12/2024 Ambulatory Visit Instructions Your [...] for choosing us for your care. Normal [facility] MRI Ankle w/o Contrast Lefto n 08-24-2023 [...] by: BELLA Technologist: HUNTER Technical Comments None [facility] Consent for Treatmenton 08-13 Consent for Treatment [id number] F [facility] RAD - MRI Screening Formon 1 10-24-2022 RAD - MRI Screening Form [id number]#1.00TIFF [facility] Physician Orderon 08-20-2023 Physician Order [id number]#1.00TIF F [facility] Consent for Treatmenton 07-15 Consent for Treatment [id number]#1.00TIF F [facility] Discharge Instructionson Discharge Instructions [id number]#1.00TI FF [facility] ED Clinical Summaryon 2022 ED Clinical Summary (Inserted Image. Linda ble to display) [place] [id number] ED Clinical Summary Person Information Name: JAVIER BROWN [facility] Age: 47 Years : 1975 Sex: Female Language: Guyanese PCP: Carey Courtney MD Marital Status: Phone: [phone] Visit Id: Visit Reason: Foot injury - [...] 14:19:56 08/10/2023 14:19:56 08/10/2023 14:19:56 AD[address]: [address] [facility] [id number] PHYS DOC NOTES: MEDICAL INFORMATION: Prescriptions Given: New Medications [facility], [address] [place], [place] [id number], [phone] diclofenac topical (Voltaren Gel 1% Gel) 2 [...] up With: Address: When: Carey Courtney MD, [address] [address] In 3 days 08/13/2023 DIAGNOSIS: 1:Plantar fasciitis, left [facility] ED Note-Physicianon 08-10-20 ED Note-Physician Basic Information Time Seen: Amy Hernandez PA-C 08/10/2023 12:01 Chief Complaint pt repotrs left foot pain for months, has had PT done. Pt reports pain is on posterior portion of foot in arch. [place] a pop when stepping into a van [...] Voltaren gel until she can see her tailing hand. I offered her crutches and she declines as she states that she has these at home. Likely her Planter fasciitis versus ligament or tendon injury as she states that she heard a pop. She is to follow-up with her tailing hand. Afebrile, not tachycardic, tolerating p.o. and hemodynamically stable to be discharged home. Educated side effect of medications. Answered all questions. Patient in agreement with treatment. Assessment/Plan 1. Plantar fasciitis, left (M72.2: Plantar fascial fibromatosis) Ordered: diclofenac topical, 2 gm, Topical, QID for pain for 7 day(s), 100 gm, Refill(s) 0, not to exceed 8 grams/day/single joint of upper extremities, [facility], 173, cm, 08/10/23 12:00:00 EST, Height/Length Dosing, 100, kg, 08/10/23 12:00:00 EST, Weight Dosing predniSONE, See Instructions, 6 PO x 3 days then 4 PO x 5 days then 2 PO x 5 days then 1 PO x 5 days then 1/2 PO x 5 days, # 58 tab(s), Refills(s) 0, Pharmacy: [facility], 173, cm, 08/10/23 12:00:00 EST, Height/Length [...] With When Contact Information Carey Courtney MD, [facility] In 3 days 08/13/[address] [address] Additional Instructions: CAREY TOWNSEND DPM Within 2 [...] 3+ V (more content not included)... Normal [facility] Comment on above: Result Comment: Elec [...] provider may recommend RICE therapy along with txct-ipq-dsynxft pain medicines to manage your pain. ? [...] aerobics, and biking. General instructions ? Take tthv-raj-iqiobky and prescription medicines only as told by [...] affected foot. This is called RICE therapy. Ogco-vts-xbqkiui medicines can also be used to manage pain. This information is not (more content not included)... Normal [facility] ED Patient Summaryon 023 ED Patient Summary (Inserted Image. Linda ble to display) [place] [id number] Patient Discharge Instructions Person Information Name: JAVIER BROWN Age: 47 Years Arrival Date: 08/10/2023 11:52:25 Discharge Diagnosis: 1:Plantar fasciitis, left Primary Care Physician: Carey Courtney MD Provider Information Primary Provider: Remington Espitia DO Advanced Environmental Program Manager:None The exam and treatment you received in the Emergency Department were for an urgent problem and are not intended as complete care. It is important that you follow up with a doctor, nurse practitioner, or physician?s medication assistant for ongoing care. If your symptoms become worse or you do not improve as expected and you are unable to reach your usual health care provider, you should return to the Emergency Department. We are available 24 hours a day. JAVIER BROWN has been given the following list of patient education materials, prescriptions and follow-up instructions: Follow-up Instructions: With: Address: When: CAREY TOWNSEND DPM Within 2 to 4 days Comments: Call today to schedule your follow up With: Address: When: Carey Courtney MD, [facility] [address] [place] [address] In 3 days 08/13/2023 In the event that this physician does not participate in your insurance network, please consult with your insurance company to find a nearby participating provider. Patient Education Materials: Plantar Fasciitis A MESSAGE TO ALL PATIENTS REGARDING OPIOIDS PRESCRIPTION OPIOIDS: WHAT YOU NEED TO KNOW Prescription opioids can be used to help relieve fmtkqkok-pd-oxhiub pain and are often prescribed following a [...] care profess (more content not included)... Normal [facility] XR Foot 3+ Views Lefton 07-15 [...] mGy = . DAP = . [facility] Consent for Treatmenton Consent for Treatment [id number]#1.00CD: 127 [facility] Discharge Instructionson Discharge Instructions [id number]#1.00CD :127 [facility] ED Clinical Summaryon 2022 ED Clinical Summary (Inserted Image. Linda ble to display) [place] [id number] ED Clinical Summary Person Information Name: JAVIER BROWN [facility] Age: 47 Years : 1975 Sex: Female Language: Guyanese PCP: Carey Courtney MD Marital Status: Phone: [phone] Visit Id: Visit Reason: Cough; Shortness of [...] 05/16/2023 16:40:45 05/16/2023 16:40:45 05/16/2023 16:40:45 ADDRESS: [address] [place] [address] [address] [facility] [phone] PHYS DOC NOTES: MEDICAL INFORMATION: Prescriptions Given: New Medic[facility], [address] [place], [place] [id number], [phone] albuterol (Albuterol (Eqv-ProAir HFA) 90 mcg/inh inhalation [...] Address: When: Carey Courtney [address] [place] [address] [employer] (1) In 3 days 05/19/2023 Comments: Call [...] or worsening symptoms. DIAGNOSIS: Acute bronchitis [facility] ED Note-Physicianon 05-16-20 ED Note-Physician Basic [...] placed on doxycycline, short course of prednisone, Tesgeeta Perlangie. She reports that she feels better overall [...] Cough and Congestion, 1 EA, Refill(s) 0, [facility], 172, cm, 05/16/23 15:12:00 EDT, Height/Length Dosing, 115.5, kg, 05/16/23 15:12:00 EDT, Weight Dosing brompheniramine/dextrome thorphan/PSE, 5 mL, Oral, QID for cold symptoms, 200 mL, Refill(s) 0, [facility], 172, cm, 05/16/23 15:12:00 EDT, [...] Carey Courtney In 3 days 05/19/2023 EDT [address] [place] [phone] Business (1) Additional Instructions: Call the office [...] Colonoscopic polypectom (more content not included)... [facility] Comment on above: Result Comment: Elec [...] Follow these instructions at home: ? Take nuor-yll-roemekw and prescription medicines only as told by [...] and water are not available, use hand noteman. ? Avoid contact with people who have [...] is easier to cough up. ? Take veet-idx-wltlmuw and prescription medicin (more content not included)... [facility] ED Patient Summaryon 023 ED Patient Summary (Inserted Image. Linda ble to display) [address] [address] Patient Discharge Instructions Person Information Name: JAVIER BROWN Age: 47 Years Arrival Date: 05/16/2023 15:02:26 Discharge Diagnosis: Acute bronchitis Primary Care Physician: Carey Courtney MD Provider Information Primary Provider: Remington Espitia DO Advanced Environmental Program Manager:Nany The exam and treatment you received in the Emergency Department were for an urgent problem and are not intended as complete care. It is important that you follow up with a doctor, nurse practitioner, or physician?s medication assistant for ongoing care. If your symptoms become worse or you do not improve as expected and you are unable to reach your usual health care provider, you should return to the Emergency Department. We are available 24 hours a day. JAVIER BROWN has been given the following list of patient education materials, prescriptions and follow-up instructions: Follow-up Instructions: With: Address: When: Carey Court[place] [address] Business (1) In 3 days 05/19/2023 Comments: [...] opioids can be used to help relieve ubtmtaeo-hh-cnxghr pain and are often prescribed following a [...] any an (more content not included)... [facility] XR Chest 2 Viewson XR Chest [...] BELLA Technologist: CATARINO Technical Comments Radiation Dose: Ka,r in mGy = na DAP = na [facility] Family Medicine Office/Clini c Noteon 05-08-2023 [...] with voice recognition software. Occasional wrong-word or ?cshqs-b-pnxi? substitutions may have occurred due to the [...] day(s), # 21 cap(s), Refills(s) 0, Pharmacy: [facility], 172, cm, 05/08/23 13:30:00 EDT, Height/Length Dosing, 115.5, kg, 05/08/23 13:30:00 EDT, Weight Dosing doxycycline, 100 mg = 1 cap(s), Oral, BID, X 7 day(s), # 14 cap(s), Refills(s) 0, Pharmacy: [facility], 172, cm, 05/08/23 13:30:00 EDT, Height/Length Dosing, 115.5, kg, 05/08/23 13:30:00 EDT, Weight Dosing predniSONE, 40 mg = 2 tab(s), Oral, Daily, X 5 day(s), # 10 tab(s), Refills(s) 0, Pharmacy: [facility], 172, cm, 05/08/23 13:30:00 EDT, Height/Length [...] day(s), # 21 cap(s), Refills(s) 0, Pharmacy: [facility], 172, cm, 05/08/23 13:30:00 EDT, Height/Length Dosing, 115.5, kg, 05/08/23 13:30:00 EDT, Weight Dosing doxycycline, 100 mg = 1 cap(s), Oral, BID, X 7 day(s), # 14 cap(s), Refills(s) 0, Pharmacy: [facility] 172, cm, 05/08/23 (more content not included)... [facility] Comment on above: Result Comment: Elec [...] numbers. This can be done either in [place]ese ([place] or metric measurements. Note that charts and online BMI calculators are available to help you find your BMI quickly and easily without having to do these calculations yourself. To calculate your BMI in [place]ese ([place] measurements: 1. Measure your weight in [...] for Disease Control and Prevention: www.cdc.gov ? [place] Heart Association: www.heart.org ? National Heart, Lung, and Blood [place]: www.nhlbi.nih.gov Summary ? Body mass index (BMI) is a number that is calculated from a person's weight and height. ? BMI may help estimate how much of a person's weight is composed of fat. BMI can help identify those who may be at higher risk for certain medical problems. ? BMI can be measured using Guyanese measurements or metric measurements. ? BMI charts are used to identify whether you are underweight, normal weight, overweight, or obese. This information is not intended to replace advice given to you by your health care provider. Make sure you discuss any questions you have with your health care provider. Document Revised: 05/22/2020 Document Reviewed: 03/29/2020 M&D ANTIQUES & CONSIGNMENT Patient Education ? 2022 [employer]. Pulmonary Medicine Acute Bronchitis, Adult Acute bronchitis [...] this condition is (more content not included)... [facility] PT - Assessmentson 3 PT - Assessments [id number]#1.00CD: 127 [facility] Nonvisit Note - PTon 023 Nonvisit Note - PT cx 04-08-23 hf, pt le ft voice mail, stated that she is out of town, cxl. [facility] PT - Home Exercise Programon 04-01-2023 PT - Home Exercise Program [id number] :127 [facility] PT - Assessmentson 3 PT - Assessments [id number]#1.00CD :127 [facility] PT - Home Exercise Programon 03-25-2023 PT - Home Exercise Program [id number] D:127 [facility] PT - Home Exercise Programon 03-23-2023 PT - Home Exercise Program [id number]#1.00CD: 127 [facility] Nonvisit Note - PTon 023 Nonvisit Note - PT Double booked linda loya Confirmed 03/18 as next appt. [facility] PT - [place] 03-11-2023 PT - Orders [id number]#1.00CD :127 [facility] PT - Home Exercise Programon 03-09-2023 PT - Home Exercise Program [id number]#1.00CD: 127 [facility] PT - Assessmentson PT - Assessments [id number]#1.00CD: 127 [facility] PT - Consentson 03-02-2023 PT - Consents [id number]#1.00CD: 127 [facility] PT - Home Exercise Programon 03-02-2023 PT - Home Exercise Program [id number]#1.00CD: 127 [facility] Consent for Treatmenton 02-11 Consent for Treatment [id number]#1.00CD: 127 [facility] PT - [place] 03-01-2023 PT - Orders [id number]#1.00CD :127 [facility] Vital Signs Date Time Vital Sign Value Performing Clinician Hemant raines 02-12-2024 13:04-0400 Blood Pressure Location Eliceo Coleman [facility] 02-12-2024 13:04-0400 Body temperature 97.88 [degF] Eliceo Coleman [facility] 06-01-2024 13:04-0400 Diastolic blood pressure 86 mm[Hg] Eliceo Coleman [facility] 02-12-2024 13:04-0400 Heart rate 81 /min Eliceo Coleman [facility] 02-12-2024 13:04-0400 SaO2% (BldA) [Mass fraction] 98 % Eliceo Coleman [facility] 02-12-2024 13:04-0400 Systolic blood pressure 138 mm[Hg] Eliceo Coleman [facility] 08-10-2023 11:56-0500 Body temperature 97.7 [degF] Remington Espitia [facility] 08-10-2023 11:56-0500 Diastolic blood pressure 85 mm[Hg] Remington Espitia [facility] 08-10-2023 11:56-0500 Heart rate 77 /min Remington Espitia [facility] 08-10-2023 11:56-0500 Respiratory rate 16 /min Remington Espitia [facility] 08-10-2023 11:56-0500 SaO2% (BldA) [Mass fraction] 97 % Remington Espitia [facility] 08-10-2023 11:56-0500 Systolic blood pressure 144 mm[Hg] Remington Espitia [facility] 05-16-2023 15:08-0400 Body temperature 98.06 [degF] Remington Espitia [facility] 05-16-2023 15:08-0400 Diastolic blood pressure 87 mm[Hg] Remington Espitia [facility] 05-16-2023 15:08-0400 Heart rate 104 /min Remington Espitia [facility] 05-16-2023 15:08-0400 Respiratory rate 20 /min Remington Espitia [facility] 05-16-2023 15:08-0400 SaO2% (BldA) [Mass fraction] 98 % Remington Espitia [facility] 05-16-2023 15:08-0400 Systolic blood pressure 138 mm[Hg] Remington Espitia [facility] 05-08-2023 13:27-0400 Blood Pressure Location Eliceo Coleman [facility] 05-08-2023 13:27-0400 Body temperature 98.06 [degF] Eliceo Coleman [facility] 05-08-2023 13:27-0400 Diastolic blood pressure 70 mm[Hg] Eliceo Coleman [facility] 05-08-2023 13:27-0400 Heart rate 89 /min Eliceo Coleman [facility] 05-08-2023 13:27-0400 SaO2% (BldA) [Mass fraction] 97 % Eliceo Coleman [facility] 05-08-2023 13:27-0400 Systolic blood pressure 112 mm[Hg] Eliceo Coleman [facility] 06-22-2022 11:41-0400 Blood Pressure Location Alexa Mckee [facility] 06-22-2022 11:41-0400 Diastolic blood pressure 71 mm[Hg] Alexa Mckee [facility] 06-22-2022 11:41-0400 Heart rate 80 /min Alexa Mckee [facility] 06-22-2022 11:41-0400 SaO2% (BldA) [Mass fraction] 98 % Alexa Mckee [facility] 06-22-2022 11:41-0400 Systolic blood pressure 109 mm[Hg] Alexa Mckee [facility] 05-27-2022 11:14-0400 Body temperature 99.14 [degF] Remington Espitia [facility] 05-27-2022 11:14-0400 Diastolic blood pressure 84 mm[Hg] Remington Espitia [facility] 05-27-2022 11:14-0400 Heart rate 71 /min Remington Espitia [facility] 05-27-2022 11:14-0400 Respiratory rate 18 /min Remington Espitia [facility] 05-27-2022 11:14-0400 SaO2% (BldA) [Mass fraction] 97 % Remington Espitia [facility] 05-27-2022 11:14-0400 Systolic blood pressure 128 mm[Hg] Remington Espitia [facility] 05-26-2022 16:25-0400 Blood Pressure Location Vishal Christina [facility] 05-26-2022 16:25-0400 Diastolic blood pressure 82 mm[Hg] Vishal Abreue [facility] 05-26-2022 16:25-0400 Heart rate 72 /min Vishal Christina [facility] 05-26-2022 16:25-0400 Mean blood pressure 91 mm[Hg] Vishal Carri [facility] 05-26-2022 16:25-0400 SaO2% (BldA) [Mass fraction] 99 % Vishal Abreue [facility] 05-26-2022 16:25-0400 Systolic blood pressure 108 mm[Hg] Vishal Abreue [facility] 05-26-2022 15:30-0400 Blood Pressure Location Vishal Abreue [facility] 05-26-2022 15:30-0400 Diastolic blood pressure 60 mm[Hg] Vishal Abreue [facility] 05-26-2022 15:30-0400 Heart rate 69 /min Vishal Abreue [facility] 05-26-2022 15:30-0400 Mean blood pressure 71 mm[Hg] Vishal Abreue [facility] 05-26-2022 15:30-0400 SaO2% (BldA) [Mass fraction] 97 % Vishal Abreue [facility] 05-26-2022 15:30-0400 Systolic blood pressure 92 mm[Hg] Vishal Abreue [facility] 05-26-2022 14:55-0400 Body temperature 98.42 [degF] Vishal Abreue [facility] 05-26-2022 14:55-0400 Diastolic blood pressure 64 mm[Hg] Vishal Abreue [facility] 05-26-2022 14:55-0400 Heart rate 67 /min Vishal Abreue [facility] 05-26-2022 14:55-0400 Respiratory rate 18 /min Vishal Abreue [facility] 05-26-2022 14:55-0400 SaO2% (BldA) [Mass fraction] 97 % Vishal Christina [facility] 05-26-2022 14:55-0400 Systolic blood pressure 128 mm[Hg] Vishal Christina [facility] 05-14-2022 15:39-0400 Blood Pressure Location Alexa Mckee [facility] 05-14-2022 15:39-0400 Diastolic blood pressure 77 mm[Hg] Alexa Mckee [facility] 05-14-2022 15:39-0400 Heart rate 83 /min Alexa Mckee [facility] 05-14-2022 15:39-0400 SaO2% (BldA) [Mass fraction] 98 % Alexa Mckee [facility] 05-14-2022 15:39-0400 Systolic blood pressure 119 mm[Hg] Alexa Mckee [facility] 05-08-2022 10:23-0400 Diastolic blood pressure 72 mm[Hg] Sreedhar NILL [facility] 05-08-2022 10:23-0400 Heart rate 61 /min Sreedhar NILL [facility] 05-08-2022 10:23-0400 Respiratory rate 22 /min Sreedhar NILL [facility] 05-08-2022 10:23-0400 SaO2% (BldA) [Mass fraction] 99 % Sreedhar NILL [facility] 05-08-2022 10:23-0400 Systolic blood pressure 109 mm[Hg] Sreedhar NILL [facility] 05-08-2022 10:10-0400 Diastolic blood pressure 72 mm[Hg] Sreedhar NILL [facility] 05-08-2022 10:10-0400 Heart rate 61 /min Sreedhar NILL [facility] 05-08-2022 10:10-0400 Respiratory rate 18 /min Sreedhar NILL [facility] 05-08-2022 10:10-0400 SaO2% (BldA) [Mass fraction] 98 % Sreedhar NILL [facility] 05-08-2022 10:10-0400 Systolic blood pressure 100 mm[Hg] Sreedhar NILL [facility] 05-08-2022 10:05-0400 Diastolic blood pressure 69 mm[Hg] Sreedhar NILL [facility] 05-08-2022 10:05-0400 Heart rate 69 /min Sreedhar NILL [facility] 05-08-2022 10:05-0400 Respiratory rate 21 /min Sreedhar NILL [facility] 05-08-2022 10:05-0400 SaO2% (BldA) [Mass fraction] 97 % Sreedhar NILL [facility] 05-08-2022 10:05-0400 Systolic blood pressure 106 mm[Hg] Sreedhar NILL [facility] 05-08-2022 09:58-0400 Body temperature 97.52 [degF] Sreedhar NILL [facility] 05-08-2022 09:16-0400 Blood Pressure Location Sreedhar NILL [facility] 05-08-2022 09:16-0400 Body temperature 96.8 [degF] Sreedhar NILL [facility] 05-08-2022 09:16-0400 Respiratory rate 20 /min Sreedhar NILL [facility] 04-27-2022 15:22-0400 Blood Pressure Location Sreedhar NILL [facility] [place] 04-27-2022 15:22-0400 Diastolic blood pressure 75 mm[Hg] Sreedhar NILL [facility] [place] 04-27-2022 15:22-0400 Heart rate 81 /min Sreedhar NILL [facility] [place] 04-27-2022 15:22-0400 Respiratory rate 16 /min Sreedhar NILL [facility] [place] 04-27-2022 15:22-0400 Systolic blood pressure 112 mm[Hg] Sreedhar NILL [facility] [place] 03-17-2022 14:46-0400 Blood Pressure Location Arley Russellshahana [facility] 03-17-2022 14:46-0400 Diastolic blood pressure 68 mm[Hg] Arley Choerson [facility] 03-17-2022 14:46-0400 Heart rate 64 /min Arley Russellofferson [facility] 03-17-2022 14:46-0400 Respiratory rate 18 /min Arley Russellofferson [facility] 03-17-2022 14:46-0400 SaO2% (BldA) [Mass fraction] 97 % Arley Choerson [facility] 03-17-2022 14:46-0400 Systolic blood pressure 106 mm[Hg] Arley Brito [facility] Encounters Encounter Date Encounter Type Care Provider Facility Start: 02-17-2024 End: 02-17-2024 ambulatory Carey Townsend [facility] Work Phone: Start: 02-17-2024 End: 02-17-2024 Departed Referred DPM Carey Townsend Work Phone: [facility] Path [facility] Start: 02-12-2024 End: 02-12-2024 ambulatory Eliceo Coleman Facility:[facility] [place] Start: 02-12-2024 End: 02-12-2024 Patient encounter procedure Eliceo Coleman [facility] Start: 11-25-2023 End: 11-25-2023 ambulatory CAREY Melanie HOFFBY Not Available Start: 08-23-2023 End: 08-23-2023 ambulatory CAREY TOWNSEND [place] Start: 08-23-2023 End: 08-23-2023 Patient encounter procedure CAREY TOWNSEND [facility] Start: 08-10-2023 End: 08-10-2023 Emergency department patient visit Remington Espitia [facility] Start: 05-16-2023 End: 05-16-2023 Emergency department patient visit Remington Espitia [facility] Start: 05-08-2023 End: 05-08-2023 ambulatory Eliceo Coleman Facility:[facility] [place] Start: 05-08-2023 End: 05-08-2023 Patient encounter procedure Eliceo Coleman [facility] Start: 03-01-2023 End: 05-13-2023 ambulatory XXXX NONE Facility:[facility] Start: 11-04-2022 End: 11-04-2022 Patient encounter procedure Carey Courtney [facility] Start: 10-01-2022 End: 10-01-2022 Lab Drop off Eduarda Trujillo Liana [facility] Start: 06-22-2022 End: 06-22-2022 Patient encounter procedure Vedaangela Mckee [facility] Start: 06-09-2022 End: 06-09-2022 Patient encounter procedure Carey Courtney [facility] Start: 05-27-2022 End: 05-27-2022 Emergency department patient visit Remington Espitia [facility] Start: 05-26-2022 End: 05-26-2022 Emergency department patient visit Vishal Carri [facility] Start: 05-14-2022 End: 05-14-2022 Patient encounter procedure Vedaangela Mckee [facility] Start: 05-08-2022 End: 05-08-2022 Patient encounter procedure Sreedhar ARENAS [facility] Start: 04-27-2022 End: 04-27-2022 Patient encounter procedure Sreedhar ARENAS [facility] [place] Start: 04-23-2022 End: 04-23-2022 Patient encounter procedure Carly TERRY [facility] Start: 03-23-2022 End: 03-23-2022 Patient encounter procedure Arley Brito [facility] Start: 03-19-2022 End: 04-30-2022 Pre-admission assessment Arley Brito [facility] Start: 03-17-2022 End: 05-05-2022 Pre-admission assessment Dania MCINTYRE [facility] Start: 03-17-2022 End: 03-17-2022 Patient encounter procedure Arley Brito [facility] Procedures Date Procedure Procedure Detail Performing Clinician Start: 05-08-2022 Colonoscopic polypectomy Sreedhar ARENAS Start: 10-22-2015 Left shoulder scope Aidana francisco j Brito Appendectomy Arley oviedo essure Arley Gonzalez rson Immunizations Immunization Date Immunization Notes Care Provider Trish almendarez 05-26-2022 tetanus toxoid, redu michoacano diphtheria toxoid, and acellular pertussis vaccine, adsorbed Vishal Carri [facility] Comment on above: Result Comment: Left deltoid Result Comment: Left deltoid 08-26-2021 SARS-CoV-2 (COVID-19 ) mRNA-1273 vaccine Eliceo Coleman [facility] 11-07-2020 SARS-CoV-2 (COVID-19 ) mRNA-1273 vaccine Eliceo Coleman [facility] 10-10-2020 SARS-CoV-2 (COVID-19 ) mRNA-0507 vaccine Eliceo Coleman [facility] 07-11-2020 influenza virus vaccine, unspecified formulation Eliceo Coleman [facility] Payers Date Payer Category Payer Self-pay 2022 Unknown [id number] 1975 Unknown [id number] 1975 Unknown [id number] 2.16.8 [id number] 1975 Unknown [id number] 2.16.8 [id number] 1975 Unknown [id number] 2.16.8 [id number] 1975 Unknown [id number] 2.16.8 [id number] 1975 Unknown [id number] 2.16.8 [id number] 1975 Unknown [id number] 2.16.8 [id number] Social History Date Type Detail Facility Tobacco smoking status No Smokin g Status Entered [facility] Sex Assigned At Female [facility] Start: 04-27-2022 End: 02-12-2024 Never smoked tobacco (finding) [facility] [place] Never [facility] [place] Start: 1975 Sex Assigned At Female F [facility] Functional Status Date Assessment Result Facility 02-12-2024 Functional Status N/A [facility] 08-10-2023 Functional Status N/A [facility] 05-16-2023 Functional Status N/A [facility] 05-08-2023 Functional Status N/A [facility] 06-22-2022 Functional Status No [facility] 05-27-2022 Functional Status N/A [facility] 05-26-2022 N/A [facility] 05-14-2022 Functional Status No [facility] 05-08-2022 Functional Status N/A [facility] 04-27-2022 N/A [facility] [place] 03-17-2022 Functional Status N/A [facility] Clinical Notes 04-14-2020 to 08-10-2023 Note Date [...] provider may recommend RICE therapy along with ntpw-fbw-wglfxdr pain medicines to manage your pain. Exercises [...] water aerobics, and biking. General instructions Take kims-kqv-wrgbrcp and prescription medicines only as told by [...] affected foot. This is called RICE therapy. Rxvs-xac-mivwjnq medicines can also be used to manage pain. This information is not intended to replace advice given to you by your health care provider. Make sure you discuss any questions you have with your health care provider. Document Revised: 12/16/2020 Document Reviewed: 12/16/2020 [employer] Patient Education 2022 [employer]. Follow Up Care 08/10/2023 11:53:44 With:CAREY TOWNSEND DPM Address: When:2 to 4 days Comments:Call today to schedule your follow up With:Carey Courtney MD, [facility] Address: [address] [place] [id number]- When:08/13/2023 [facility] 08-10-2023 Evaluation + Plan note Extrac brittany from: Title:ED Note Author:Amy Hernandez PA-C Date :08/10/23 1. Plantar fasciitis, left ( M72.2: Plantar fascial fibromatosis) Ordered: diclofenac topical, 2 gm, Topical, QID for pain for 7 day(s), 100 gm, Refill(s) 0, not to exceed 8 grams/day/single joint of upper extremities, [facility], 173, cm, 08/10/23 12:00:00 EST, Height/Length Dosing, 100, kg, 08/10/23 12:00:00 EST, Weight Dosing predniSONE, See Instructions, 6 PO x 3 days then 4 PO x 5 days then 2 PO x 5 days then 1 PO x 5 days then 1/2 PO x 5 days, # 58 tab(s), Refills(s) 0, Pharmacy: [facility], 173, cm, 08/10/23 12:00:00 EST, Height/Length Dosing, 100, kg, 08/10/23 12:... Orders: ketorolac, 15 mg = 0.5 mL, Injection, IntraMuscular, Once, Stop date 08/10/23 14:06:00 EST, STAT, Start date 08/10/23 14:06:00 EST, 08/10/23 14:06:00 EST [facility]09-03-2023 Hospital Discharge instructions Patient Education 05/16/2023 16:18:04 [...] condition. Follow these instructions at home: Take admd-diu-udmfyvz and prescription medicines only as told by [...] and water are not available, use hand noteman. Avoid contact with people who have cold [...] it is easier to cough up. Take hxba-dzt-ovcbjwr and prescription medicines only as told by [...] provider. Document Revised: 12/31/2021 Document Reviewed: 12/31/2021 [employer]MENT Patient Education 2022 [employer]. Follow Up Care 05/16/2023 15:03:49 With:Carey Courtney Address: [address] [place], [place] [id number] [facility] (1) When:05/19/2023 16:16:58 Comments:Call the office of [...] legs, or any new or worsening symptoms. [facility]09-03-2023 Evaluation + Plan noteExtracted from: Title:ED Note Author:Remington Espitia DO Date: Acute bronchitis (J20.9: Acu te bronchitis, unspecified) Orders: albuterol, 2 puff(s), Inhalation, q4hr Cough and Congestion, 1 EA, Refill(s) 0, [facility], 172, cm, 05/16/23 15:12:00 EDT, Height/Length Dosing, 115.5, kg, 05/16/23 15:12:00 EDT, Weight Dosing brompheniramine/dextromethorphan/PSE, 5 mL, Oral, QID for cold symptoms, 200 mL, Refill(s) 0, [employer] [facility], 172, cm, 05/16/23 15:12:00 EDT, Height/Length Dosing, 115.5, kg, 05/16/23 15:12:00 EDT, Weight Dosing XR Chest 2 Views Future Scheduled Tests Radiology* CT Venogram Abdomen and Pelvis w/ Contrast 06/22/22 [facility]08-26-2023 Hospital Discharge instructions Patient Education 05/08/2023 14:02:42 [...] condition. Follow these instructions at home: Take scka-xor-ytehyow and prescription medicines only as told by [...] and water are not available, use hand noteman. Avoid contact with people who have cold [...] it is easier to cough up. Take icqy-mbn-umdeuon and prescription medicines only as told by [...] provider. Document Revised: 12/31/2021 Document Reviewed: 12/31/2021 [employer] Patient Education 2022 [employer] 05/08/2023 14:02:38 BMI for Adults BMI for [...] numbers. This can be done either in [place] ([place] or metric measurements. Note that charts and online BMI calculators are available to help you find your BMI quickly and easily without having to do these calculations yourself. To calculate your BMI in [place] ([place] measurements: 1.Measure your weight in pounds [...] Centers for Disease Control and Prevention: www.cdc.gov [place] [employer]: www.heart.org National Heart, Lung, and Blood [place]: www.nhlbi.nih.gov Summary Body mass index (BMI) is a number that is calculated from a person's weight and height. BMI may help estimate how much of a person's weight is composed of fat. BMI can help identify thosewho may be at higher risk for certain medical problems. BMI can be measured using Guyanese measurements or metric measurements. BMI charts are used to identify whether you are underweight, normal weight, overweight, or obese. This information is not intended to replace advice given to you by your health care provider. Make sure you discuss any questions you have with your health care provider. Document Revised: 05/22/2020 Document Reviewed: 03/29/2020 [employer]QU[employer] CONS[employer]MENT Patient Education 2022 [employer]. Follow Up Care 05/08/2023 13:11:29 With:Dusty ALVAREZ, KADE Benson Address: [address] [place], [place] [id number]- When: Unknown [facility] 10-10-2022 Evaluation + Plan note Future Scheduled Tests Radiology* CT Venogram Abdomen and Pelvis w/ Contrast 06/22/[address] [facility] 09-14-2022 Hospital Discharge instructions Patient Education 05/27/2022 12:47:15 Sutures, Leilani, or Adhesive Wound Closure, Mssw-yr-Bguw Sutures, Gridley, or Adhesive Wound Closure Doctors use stitches [...] skin reaction that can lead to infection. Leilani Leilani are often used to close surgical cuts (incisions). To use leilani, your doctor: Holds the edges of your wound close together. Places a staple across the wound. Uses a tool to secure the staple to the skin. Repeats this with as many leilani as needed. Gridley are faster to use than sutures, and they cause less reaction from your skin. Leilani need to be removed using a tool that bends the leilani away from your skin. Follow these instructions at home: Medicines Take gagw-ayw-ybtnysr and prescription medicines only as told by [...] cannot use soap and water, use hand noteman. Do not try to remove your wound [...] 06/27/2010 Document Revised: 08/12/2018 Document Reviewed: 07/07/2018 [employer]MENT Patient Education 2020 [employer]. 05/27/2022 12:47:15 Wrist Sprain, Adult Wrist Sprain, [...] your health care provider. General instructions Take elvl-usa-aishndd and prescription medicines only as told by [...] 05/03/2015 Document Revised: 08/12/2018 Document Reviewed: 03/18/2017 M[employer]D ANTIQUES [employer] CONSIGNMENT Patient Education 2020 [employer] Follow Up Care 05/27/2022 11:11:30 With:[facility] [facility]: [facility] [phone] Address:Unknown When:05/30/2022 12:35:57 [facility]09-14-2022 Evaluation + Plan noteExtracted from: Title:ED Note Author:Jareth Childs PA-C te:05/27/22 Wrist sprain (S63.509A: Unsp ecified sprain of unspecified wrist, initial encounter) Orders: Splint Application Wrist XR Wrist 3+ Views Left Future Appointments Appointment Date:05/28/2022 03:30:00 PM Scheduled Provider:Yancy MOHAMUD CNP Location[place] Occupational Health Appointment Type:IH ER Follow up BWC (FT) Appointment Date:06/04/2022 08:00:00 AM Scheduled Provider: Location:.[facility] Appointment Type:US Duplex Procedures (FT) Appointment Date:06/22/2022 11:30:00 AM Scheduled Provider:Alexa Mckee MD Location[facility] Appointment Type:Vascular Follow Up (FT) Future Scheduled Tests Laboratory* B-Type Natriuretic Peptide 03/17/22 * Comprehensive Metabolic Panel 03/17/22 * Lipid Panel 03/17/22 Radiology* US LE Venous Duplex Insufficiency Bilat 06/04/22 * US LE Venous Duplex Bilateral 03/23/22 [facility]09-13-2022 Hospital Discharge instructions Patient Education 05/26/2022 16:32:15 [...] Ask your health care provider for a zqil-yx-pgul plan for gradually returning to activities. Ask [...] your friends, family, a trusted colleague, and cinder worker about your injury, symptoms, and restrictions. Have them watch for any new or worsening problems. General instructions Take jztz-zyq-esdzdov and prescription medicines only as told by [...] 08/30/2006 Document Revised: 09/27/2019 Document Reviewed: 09/22/2019 [employer]MENT Patient Education 2020 [employer] 05/26/2022 16:32:15 Concussion, Adult Concussion, Adult [...] gradually returning to activities. General instructions Take fgfb-ahp-admbyvf and prescription medicines only as told by [...] higher risk of serious complications. Tell your cinder worker, teachers, school nurse, school counselor, coach tour driver, or development trainer about your injury, symptoms, and restrictions. [...] 11/19/2004 Document Revised: 04/20/2019 Document Reviewed: 04/20/2019 M[employer] ANTIQUES [employer] CONSIGNMENT Patient Education 2020 [employer] 05/26/2022 16:32:15 Abrasion Abrasion An abrasion [...] instructions at home: Medicines Take or apply umws-qov-txkusva and prescription medicines only as told by [...] 06/09/2006 Document Revised: 08/12/2018 Document Reviewed: 04/13/2018 M[employer]D ANTIQUES [employer] CONSIGNMENT Patient Education [employer]. Follow Up Care 05/26/2022 14:55:06 With:Carey Courtney Address: [address] [place] [id number] [facility] (1) When:05/29/2022 15:48:24 Comments:Follow-up with your primary care provider in 3 to 5 days. If symptoms worsen, do not improve, or new symptoms arise please report back to emergency department for further evaluation. [facility]09-13-2022 Evaluation + Plan noteExtracted from: Title:ED Note Author:Paul MARTINEZ, Jaciel Watt te:05/26/22 Facial abrasion (S00.81XA: A brasion of [...] Appointments Appointment Date:06/04/2022 08:00:00 AM Scheduled Provider: Location:.[facility] Appointment Type:US Duplex Procedures (FT) Appointment Date:06/22/2022 11:30:00 AM Scheduled Provider:Alexa Mckee MD Location[facility] Appointment Type:Vascular Follow Up (FT) Future Scheduled Tests Laboratory* B-Type Natriuretic Peptide 03/17/22 * Comprehensive Metabolic Panel 03/17/22 * Lipid Panel 03/17/22 Radiology* US LE Venous Duplex Insufficiency Bilat 06/04/22 * US LE Venous Duplex Bilateral 03/23/22 [facility]08-26-2022 Evaluation + Plan noteExtracted from: Title:Post-anesthesia - General Author:Thomas Ratliff DO Date:05/08/22 Plan Transfer/ Discharge: Condition stable. Extracted from: Title:Pre-anesthesia - Endoscopy Author:Thomas Pizarro Jr., DO Date:05/08/22 Plan [place] [employer] Anesthesiologists (ASA) physical status classification: Class II. Anesthetic Preoperative Plan Anesthesia: General. . Anesthetic plan, risks, benefits, and alternatives discussed with the patient and/or family. Patient verbalized understanding. Future Appointments Appointment Date:05/14/2022 03:30:00 PM Scheduled Provider:Alexa Mckee MD Location[facility] Appointment Type:Vascular New Patient (FT) Future Scheduled Tests Laboratory* B-Type Natriuretic Peptide 03/17/22 * Comprehensive Metabolic Panel 03/17/22 * Lipid Panel 03/17/22 Radiology* US LE Venous Duplex Bilateral 03/23/22 [facility]08-26-2022 Hospital Discharge instructions Patient Education 05/08/2022 10:07:53 Colonoscopy, Care After Surgery [place] (CUSTOM) Colonoscopy Care After Surgery Please read the instructions outlined below and refer to this sheet in the next few weeks. These discharge instructions provide you with general information on caring for yourself after you leave thehospital. Your doctor may also give you specific [...] Up Care 04/27/2022 15:46:02 With:Sreedhar ARENAS Address: [address] [place] [address], [address] [place] [phone] Business (1) When:7 to 10 days [facility]07-05-2022 Evaluation + Plan note Future Scheduled Tests Laboratory* B-Type Natriuretic Peptide 03/17/22 * Comprehensive Metabolic Panel 03/17/22 * Lipid Panel 03/17/22 Radiology* CT Venogram Abdomen and Pelvis w/ Contrast 06/22/22 * US LE Venous Duplex Bilateral 03/23/22 [facility]08-22-2020 Evaluation + Plan note Future Appointments Appointment Date:04/29/2022 01:00:00 PM Scheduled Provider: [facility] Appointment Type:CV Echo (FT) Appointment Date:05/04/2022 10:00:00 AM Scheduled Provider:Dania MCINTYRE CNP [facility] Type:Cardiology Follow Up (FT) Appointment Date:05/08/2022 10:00:00 AM Scheduled Provider: Location:[facility] Appointment Type:Surgery FT Appointment Date:05/14/2022 03:30:00 PM Scheduled Provider:Alexa Mckee MD [facility] Type:Vascular New Patient (FT) Future Scheduled Tests Laboratory* B-Type Natriuretic Peptide 03/17/22 * Comprehensive Metabolic Panel 03/17/22 * Lipid Panel 03/17/22 Radiology* Echo Transthoracic Complete 04/29/22 * US LE Venous Duplex Bilateral 03/23/[address] [facility] [place] [id number] Evaluation + Plan note Future Appointments Appointment Date:04/13/2022 01:00:00 PM Scheduled Provider: Location:[facility] Appointment Type:CV Echo (FT) Appointment Date:04/14/2022 03:30:00 PM Scheduled Provider:Dania MCINTYRE CNP Location[facility] Appointment Type:Cardiology Follow Up (FT) Future Scheduled Tests Laboratory* B-Type Natriuretic Peptide 03/17/22 * Comprehensive Metabolic Panel 03/17/22 * Lipid Panel 03/17/22 Radiology* Echo Transthoracic Complete 04/13/22 * US LE [facility]ous [facility]lex [facility] App[facility]ments Appointment Date:04/14/2022 03:30:00 PM Scheduled Provider:Dania MCINTYRE CNP Location[facility] Appointment Type:Cardiology Follow Up (FT) Future Scheduled Tests Laboratory* B-Type Natriuretic Peptide 03/17/22 * Comprehensive Metabolic Panel 03/17/22 * Lipid [facility] Future App[facility]ments Appointment Date:04/27/2022 03:00:00 PM Scheduled Provider:Sreedhar ARENAS MD Location:[facility] Appointment Type:GS New 30 Appointment Date:04/29/2022 01:00:00 PM Scheduled Provider: Location:[facility] Appointment Type:CV Echo (FT) Appointment Date:05/04/2022 10:00:00 AM Scheduled Provider:Dania MCINTYRE CNP Location[facility] Appointment Type:Cardiology Follow Up (FT) Future Scheduled Tests Laboratory* B-Type Natriuretic Peptide 03/17/22 * Comprehensive Metabolic Panel 03/17/22 * Lipid Panel 03/17/22 Radiology* Echo Transthoracic Complete 04/29/22 * US LE Venous Duplex Bilateral [facility] Future Appointments Appointment Date:05/04/2022 10:00:00 AM Scheduled Provider:Dania MCINTYRE CNP [facility] App[facility] Type:Cardiology Follow Up (FT) Appointment Date:05/08/2022 10:00:00 AM Scheduled Provider: Location:[facility] Appointment Type:Surgery FT Appointment Date:05/14/2022 03:30:00 PM Scheduled Provider:Alexa Mckee MD Location[facility] Appointment Type:Vascular New Patient (FT) Future Scheduled Tests Laboratory* B-Type Natriuretic Peptide 03/17/22 * Comprehensive Metabolic Panel 03/17/22 * Lipid Panel 03/17/22 Radiology* US LE Venous Duplex Bilateral [facility] Future Appointments Appointment Date:05/08/2022 10:00:00 AM Scheduled Provider: Location:[facility] Appointment Type:Surgery FT Appointment Date:05/14/2022 03:30:00 PM Scheduled Provider:Alexa Mckee MD Location[facility] Appointment Type:Vascular New Patient (FT) Future Scheduled Tests Laboratory* B-Type Natriuretic Peptide 03/17/22 * Comprehensive Metabolic Panel 03/17/22 * Lipid Panel 03/17/22 Radiology* US LE Venous Duplex Bilateral [facility] Future Appointments Appointment Date:05/21/2022 03:40:00 PM Scheduled Provider:Sreedhar ARENAS MD Location:[facility] Appointment Type:GS Post Op 15 Appointment Date:06/22/2022 11:30:00 AM Scheduled Provider:Alexa Mckee MD Location:[facility] Appointment Type:Vascular Follow Up (FT) Future Scheduled Tests Laboratory* B-Type Natriuretic Peptide 03/17/22 * Comprehensive Metabolic Panel 03/17/22 * Lipid Panel 03/17/22 Radiology* US LE Venous Duplex Bilateral [facility] Future Appointments Appointment Date:06/22/2022 11:30:00 AM Scheduled Provider:Alexa Mckee MD Location:[facility] Appointment Type:Vascular Follow Up (FT) Future Scheduled Tests Laboratory* B-Type Natriuretic Peptide 03/17/22 * Comprehensive Metabolic Panel 03/17/22 * Lipid Panel 03/17/22 Radiology* US LE Venous Duplex Bilateral [facility]/23/[facility] note[facility] assessment information available [facility] Work Phone: Hospital course Narrative No data available for this section [facility] No data available for this section [facility] No data available for this section [facility] Summary Purpose Family History No Family History Records Found Advance Directives No Advanced Directives Records FoundNo Advanced Directives Records FoundNo Advanced Directives Records Found Additional Source Comments Care Team (unrecognized sect ion and content) Team Status: Inactive Member Role Status Dates Carey Townsend DPM MS Attending Provider Active Start: February 17, 2024 End: February 17, 2024 INFORMATION SOURCE (unrecogn ized section and content) DATE CREATED AUTHOR 11/27/2023 [facility] DATE CREATED AUTHOR AUTHOR'S ORGANIZ ATION 02/13/2024 [facility] DATE CREATED AUTHOR AUTHOR'S ORGANIZ ATION 03/03/2024 [facility] Goals (unrecognized section and content) Goals may be documented in a n alternate section FOR RECORDS PERTAINING TO PATIENTS WHO ARE [...] BE BASED ON THE PRIMARY CLINICAL RECORDS. [facility] [employer] [facility]. provides no warranty or guarantee of the accuracy or completeness of information in this document.
== END 2024-03-15 11:45 | disposition home or self-care (01) ==
LOC: EC 11:44
PROVIDERS: Family Provider Family Medicine; Visit Provider Podiatrist Foot & Ankle Surgery
DX: M25.572 Pain in left ankle and joints of left foot (principal); Z98.890 Other specified postprocedural states
CPT/HCPCS: 73630

== ENCOUNTER 2024-04-12 10:08 | Outpatient (OUT) | payer OTHER, SELFPAY ==
--- NOTE | 2024-04-12 | XR_ITS ---
The [address] [address] Patient Name: JAVIER OROSCO MRN: [id number] date: 1975 Sex: F Assigned Patient Location: Current Patient Location: Accession/Order Number: [id number] Exam Date: 04/12/2024 10:15 Report Date: 04/13/2024 06:17 At the request of: CAREY SUTTON Procedure: XR foot LT min 3V PROCEDURE: XR foot LT min 3V HISTORY: LEFT FOOT PAIN COMPARISON: XR foot left 03/15/2024 FINDINGS: BONES:Prior osteotomy involving base of first metatarsal with bone staple repair. Posterior calcaneal osteotomy and repair via 2 lag screws. SOFT TISSUES:Distal dorsal soft tissue swelling. EFFUSION:None visible. OTHER: Negative. XR/XR foot LT min 3V IMPRESSION: 1. Stable surgical changes without evidence of hardware failure or change in alignment. 2. No acute bone abnormality. Electronically authenticated by: YASMINE TRUJILLO Date: 04/13/2024 06:17
--- OUTSIDE RECORDS SUMMARY | 2024-04-12 10:28 | XMS_ITS | CCD ---
Author Organization [facility] Care Team Providers Care Quality Control Industrial Engineer Name Role Phone Carey Courtney Primary Care Physician [phone] XOCHITL Townsend Attending Provider [phone] Carey Townsend Attending Carey Mart Admitting Unavailable CAREY TOWNSEND Referring Unavailable CAREY TOWNSEND Attending CAREY Mart Attending CAREY Mart Admitting Unavailable CAREY TOWNSEND Referring Unavailable Remington Espitia Attending Unavailable Remington Espitia Attending Unavailable Eliceo Coleman Attending Unavailable Eliceo Coleman Attending Unavailable CAREY COURTNEY Attending Unavailable JHONY HOWE Attending Nick le Allergies Allergy Classification Reported Allergen(s) Allergy Type Date of Onset Reaction(s) Facility (20 sources) Sulfonamides (Antibiotic); Translations: [sulfa drugs] Drug allergy Weal (disorder) [facility] Medications Current Medications Medication Drug Class(es) Dates [...] day(s), # 21 cap(s), Refills(s) 0, Pharmacy: [facility], 172, cm, 02/12/24 13:06:00 EDT, Height/Length Dosing, 121, kg, 02/12/24 13:06:00 EDT, Weight Dosing Start Date: 02/12/24 Stop Date: 02/19/24 Status: Ordered Start: 05-08-2023 End: 05-15-2023 take 1 capsule by mouth three times daily Tessalon 100 mg Cap 100 mg = 1 cap(s), Oral, TID, X 7 day(s), # 21 cap(s), Refills(s) 0, Pharmacy: [facility], 172, cm, 05/08/23 13:30:00 EDT, Height/Length Dosing, 115.5, kg, 05/08/23 13:30:00 EDT, Weight Dosing Start Date: 05/08/23 Stop Date: 05/15/23 Status: Ordered brompheniramine maleate 0.4 mg/ml / dextromethorphan hydrobromide 2 mg/ml / pseudoephedrine hydrochloride 6 mg/ml oral solution (3 sources) alpha-Adrenergic Agonist, Uncompetitive G-sojggz-H-aspartate Receptor Antagonist, Sigma-1 Agonist Start: 05-16-2023 take 5 mL by mouth four times daily Bromfed DM oral syrup 5 mL, Oral, QID for cold symptoms, 200 mL, Refill(s) 0, [facility], 172, cm, 05/16/23 15:12:00 EDT, Height/Length [...] exceed 8 grams/day/single joint of upper extremities, [facility], 173, cm, 08/10/23 12:00:00 EST, Height/Length [...] day(s), # 14 cap(s), Refills(s) 0, Pharmacy: [facility], 172, cm, 05/08/23 13:30:00 EDT, Height/Length [...] nasal route twice daily Flonase 0.05 mg/inh [place] 1 spray(s), Nasal, BID for 7 day(s), 16 gm, Refill(s) 0, each nostril, [facility], 172, cm, 02/12/24 13:06:00 EDT, Height/Length [...] days, # 58 tab(s), Refills(s) 0, Pharmacy: [facility], 173, cm, 08/10/23 12:00:00 EST, Height/Length Dosing, 100, kg, 08/10/23 12:00:00 EST, Weight Dosing Start Date: 08/10/23 Status: Ordered Start: 05-08-2023 End: 05-13-2023 take 2 tablets by mouth once daily predniSONE 20 mg Tab 40 mg = 2 tab(s), Oral, Daily, X 5 day(s), # 10 tab(s), Refills(s) 0, Pharmacy: [facility], 172, cm, 05/08/23 13:30:00 EDT, Height/Length [...] Cough and Congestion, 1 EA, Refill(s) 0, [facility], 172, cm, 05/16/23 15:12:00 EDT, Height/Length [...] Test Name Value Interpretation Reference Range Facility [facility] 02-17-2024 L Specimen: [id number] Received: 02/17/24 Status: MALCOLM Webb Num: [id number] Spec Type: Surgical Subm Dr: Carey Townsend DPM, MS Tissues: A Bone Fragments - Other than Path Fracture (LT PERONEUS LONGUS) Procedures: HE, Gross/Micro L3, Decalcification Age/ Patient Sex Location Account Attending Physician Javier Brown 48/F [place] [id number] Carey Townsend DPM, MS SPEC NUM: [id number] RECD: 02/17/24 STATUS: MALCLOM WEBB NUM: [id number] MIRNA: 02/17/[address]: Carye Townsend DPM, MS ENTERED: 02/17/[address]: Qing Calixto SPEC TYPE: Surgical DEPT: YANNICK SCHULTZ ORDERED: HE, Gross/Micro L3, Decalcification ORDERED: HE, Gross/Micro L3, Decalcification Pathological Diagnosis Left peroneus [...] Cut sections reveal fibrous and bony surfaces. Flight Attendant/Inflight Manager sections following decalcification are submitted following decalcification in A1. TW Specimen: [id number] Received: 02/17/24 Status: MALCOLM Webb Num: [id number] Spec Type: Surgical Subm Dr: Carey Townsend,XOCHITL, MS Tissues: A Bone Fragments - Other than Path Fracture (LT PERONEUS LONGUS) Procedures: REBECCA, Gross/Micro L3, Decalcification Patient: Javier Brown [id number] (Continued) Specimen: [id number] Received: 02/17/24 (Continued) Signed (signature on file) Dallin Martell MD 02/21/24 162 Specimen: [id number] Received: 02/17/24 Status: MALCOLM Webb Num: [id number] Spec Type: Surgical Subm Dr: Carey Townsend,XOCHITL, MS Tissues: A Bone Fragments - Other than Path Fracture (LT PERONEUS LONGUS) Procedures: REBECCA, Gross/Micro L3, Decalcification Patient: Javier Brown [id number] (Continued) Specimen: [id number] Received: 02/17/24 (Continued) CPT Codes [id number] Specimen: [id number] Received: 02/17/24 Status: MALCOLM Jettaury Num: [id number] Spec Type: Surgical Subm Dr: Carey Townsend,XOCHITL, [place] Tissues: A Bone Fragments - Other than Path Fracture (LT PERONEUS LONGUS) Procedures: REBECCA Gross/Cristal L3, Decalcification Patient: Javier Brown [id number] (Continued) Signed (signature on file) Dallin Martell MD 02/21/24 1626 Normal [facility] Family Medicine Office/Clini c Noteon [...] with voice recognition software. Occasional wrong-word or ?nhgbl-q-vjno? substitutions may have occurred due to the inherent limitations of voice recognition software. 48-year-old female presents to [facility] care today with chief complaint of cough [...] Ankle reconstructive surgery with Dr. Townsend in [place]. Patient does not wish to be sick [...] Follow-up With When Contact Information Dusty ALVAREZ, Carey Navarro, [facility] [address] [place] [address]- Additional Instructions: Patient Education BMI for Adults Upper Respiratory Infection, Adult Problem List/Past Medical History Ongoing Acoustic neuroma BMI 39.0-39.9,adult Cerebral ventriculomegaly Chronic pain syndrome Depression Mixed conductive and sensorineural hearing loss Screening for malignant neoplasm of colon Historical No qualifying data Pro (more content not included)... Normal [facility] Comment on above: Result Comment: Elec tronically [...] to help relieve symptoms, such as: ? Lufa-zup-qanclyb cold medicines. ? Cough suppressants. Coughing is [...] other clear broths. General instructions ? Take ctbx-qeq-qqyfveo and prescription medicines only as told by [...] and water are not available, use hand geothermal powerplant supervisor. ? Avoid touching your mouth, face, eyes, [...] Get help (more content not included)... Normal [facility] Ambulatory Visit Summaryon 0 02-12-2024 Ambulatory Visit [...] for choosing us for your care. Normal [facility] MRI Ankle w/o Contrast Lefto n 08-24-2023 [...] by: BELLA Technologist: HUNTER Technical Comments None [facility] Consent for Treatmenton 08-13 Consent for Treatment [id number] F [facility] RAD - MRI Screening Formon 1 10-24-2022 RAD - MRI Screening Form [id number]#1.00TIFF [facility] Physician Orderon 08-20-2023 Physician Order [id number]#1.00TIF F [facility] Consent for Treatmenton 07-15 Consent for Treatment [id number]#1.00TIF F [facility] Discharge Instructionson Discharge Instructions [id number] FF [facility] ED Clinical Summaryon 2022 ED Clinical Summary (Inserted Image. Linda ble to display) [place] [id number] ED Clinical Summary Person Information Name: JAVIER BROWN [facility] Age: 47 Years : 1975 Sex: Female Language: Italian PCP: Carey Courtney MD Marital Status: Phone: [phone] Visit Id: Visit Reason: Foot injury - [...] 14:19:56 08/10/2023 14:19:56 08/10/2023 14:19:56 ADDRESS: [address] [facility] [id number] PHYS DOC NOTES: MEDICAL INFORMATION: Prescriptions Given: New Medications [facility], [address] [place], [place] [id number], [phone] diclofenac topical (Voltaren Gel 1% Gel) 2 [...] up With: Address: When: Carey Courtney MD, [facility] [place] [address] In 3 days 08/13/2023 DIAGNOSIS: 1:Plantar fasciitis, left Normal [facility] ED Note-Physicianon 08-10-20 ED Note-Physician Basic Information Time Seen: Amy Hernandez PA-C 08/10/2023 12:01 Chief Complaint pt repotrs left foot pain for months, has had PT done. Pt reports pain is on posterior portion of foot in arch. [place] a pop when stepping into a van [...] Voltaren gel until she can see her loan analyst. I offered her crutches and she declines as she states that she has these at home. Likely her Planter fasciitis versus ligament or tendon injury as she states that she heard a pop. She is to follow-up with her loan analyst. Afebrile, not tachycardic, tolerating p.o. and hemodynamically stable to be discharged home. Educated side effect of medications. Answered all questions. Patient in agreement with treatment. Assessment/Plan 1. Plantar fasciitis, left (M72.2: Plantar fascial fibromatosis) Ordered: diclofenac topical, 2 gm, Topical, QID for pain for 7 day(s), 100 gm, Refill(s) 0, not to exceed 8 grams/day/single joint of upper extremities, [facility], 173, cm, 08/10/23 12:00:00 EST, Height/Length Dosing, 100, kg, 08/10/23 12:00:00 EST, Weight Dosing predniSONE, See Instructions, 6 PO x 3 days then 4 PO x 5 days then 2 PO x 5 days then 1 PO x 5 days then 1/2 PO x 5 days, # 58 tab(s), Refills(s) 0, Pharmacy: [facility], 173, cm, 08/10/23 12:00:00 EST, Height/Length [...] With When Contact Information Carey Courtney MD, [facility] In 3 days 08/13/2023 [place] [id number] Additional Instructions: CAREY TOWNSEND DPM Within 2 [...] 3+ V (more content not included)... Normal [facility] Comment on above: Result Comment: Elec tronically [...] provider may recommend RICE therapy along with dpil-zqq-pvzvekv pain medicines to manage your pain. ? [...] aerobics, and biking. General instructions ? Take phum-uqq-avsvido and prescription medicines only as told by [...] affected foot. This is called RICE therapy. Xyuu-dax-rjrcnaf medicines can also be used to manage pain. This information is not (more content not included)... Normal [facility] ED Patient Summaryon 023 ED Patient Summary (Inserted Image. Linda ble to display) [place] [id number] Patient Discharge Instructions Person Information Name: JAVIER BROWN Age: 47 Years Arrival Date: 08/10/2023 11:52:25 Discharge Diagnosis: 1:Plantar fasciitis, left Primary Care Physician: Carey Courtney MD Provider Information Primary Provider: Remington Espitia DO Advanced Social Economist:None The exam and treatment you received in the Emergency Department were for an urgent problem and are not intended as complete care. It is important that you follow up with a doctor, nurse practitioner, or physician?s assistant professor of theater for ongoing care. If your symptoms become [...] up With: Address: When: Carey Courtney MD, [facility] [place] [address] In 3 days 08/13/2023 In the event that this physician does not participate in your insurance network, please consult with your insurance company to find a nearby participating provider. Patient Education Materials: Plantar Fasciitis A MESSAGE TO ALL PATIENTS REGARDING OPIOIDS PRESCRIPTION OPIOIDS: WHAT YOU NEED TO KNOW Prescription opioids can be used to help relieve hdvagwoz-jn-erzgsv pain and are often prescribed following a [...] care profess (more content not included)... Normal [facility] XR Foot 3+ Views Lefton - XR Foot 3+ Views Left Exam Date/Time: [...] mGy = . DAP = . Normal [facility] Consent for Treatmenton Consent for Treatment [id number]: 127 Normal [facility] Discharge Instructionson Discharge Instructions [id number] :127 Normal [facility] ED Clinical Summaryon 2022 ED Clinical Summary (Inserted Image. Linda ble to display) [place] [id number] ED Clinical Summary Person Information Name: JAVIER BROWN [facility] Age: 47 Years : 1975 Sex: Female Language: Italian PCP: Carey Courtney MD Marital Status: Phone: [phone] Visit Id: Visit Reason: Cough; Shortness of [...] 05/16/2023 16:40:45 05/16/2023 16:40:45 05/16/2023 16:40:45 ADDRESS: [address] [place] [address] [address] [facility] [phone] PHYS DOC NOTES: MEDICAL INFORMATION: Prescriptions Given: New Medications [facility], [address] [place], [place] [id number], [phone] albuterol (Albuterol (Eqv-ProAir HFA) 90 mcg/inh inhalation [...] up: With: Address: When: Carey Courtney [address] [place] [address] Business (1) In 3 days 05/19/2023 Comments: [...] or worsening symptoms. DIAGNOSIS: Acute bronchitis Normal [facility] ED Note-Physicianon 05-16-20 ED Note-Physician Basic Information [...] placed on doxycycline, short course of prednisone, Tessalon Perles. She reports that she feels better overall [...] Cough and Congestion, 1 EA, Refill(s) 0, [facility], 172, cm, 05/16/23 15:12:00 EDT, Height/Length Dosing, 115.5, kg, 05/16/23 15:12:00 EDT, Weight Dosing brompheniramine/dextrome thorphan/PSE, 5 mL, Oral, QID for cold symptoms, 200 mL, Refill(s) 0, [facility], 172, cm, 05/16/23 15:12:00 EDT, Height/Length [...] Courtney In 3 days 05/19/2023 EDT [address] [place] [id number] Business (1) Additional Instructions: Call the office [...] Colonoscopic polypectom (more content not included)... Normal [facility] Comment on above: Result Comment: Elec tronically [...] Follow these instructions at home: ? Take gays-kwn-ujnberr and prescription medicines only as told by [...] and water are not available, use hand geothermal powerplant supervisor. ? Avoid contact with people who have [...] is easier to cough up. ? Take zkto-mjs-lzvhogj and prescription medicin (more content not included)... Normal [facility] ED Patient Summaryon 023 ED Patient Summary (Inserted Image. Linda ble to display) [address] [address] Patient Discharge Instructions Person Information Name: JAVIER BROWN Age: 47 Years Arrival Date: 05/16/2023 15:02:26 Discharge Diagnosis: Acute bronchitis Primary Care Physician: Carey Courtney MD Provider Information Primary Provider: Remington Espitia DO Advanced Social Economist:None The exam and treatment you received in the Emergency Department were for an urgent problem and are not intended as complete care. It is important that you follow up with a doctor, nurse practitioner, or physician?s assistant professor of theater for ongoing care. If your symptoms become [...] Address: When: Carey Courtney [address] [place] [address] Business (1) In 3 days [...] opioids can be used to help relieve bkykszsh-mr-sazmgj pain and are often prescribed following a [...] any an (more content not included)... Normal [facility] XR Chest 2 Viewson XR Chest 2 [...] mGy = na DAP = na Normal [facility] Family Medicine Office/Clini c Noteon 05-08-2023 Family [...] with voice recognition software. Occasional wrong-word or ?tufqb-z-zaka? substitutions may have occurred due to the [...] day(s), # 21 cap(s), Refills(s) 0, Pharmacy: [facility], 172, cm, 05/08/23 13:30:00 EDT, Height/Length Dosing, 115.5, kg, 05/08/23 13:30:00 EDT, Weight Dosing doxycycline, 100 mg = 1 cap(s), Oral, BID, X 7 day(s), # 14 cap(s), Refills(s) 0, Pharmacy: [facility], 172, cm, 05/08/23 13:30:00 EDT, Height/Length Dosing, 115.5, kg, 05/08/23 13:30:00 EDT, Weight Dosing predniSONE, 40 mg = 2 tab(s), Oral, Daily, X 5 day(s), # 10 tab(s), Refills(s) 0, Pharmacy: [facility], 172, cm, 05/08/23 13:30:00 EDT, Height/Length [...] day(s), # 21 cap(s), Refills(s) 0, Pharmacy: [facility], 172, cm, 05/08/23 13:30:00 EDT, Height/Length Dosing, 115.5, kg, 05/08/23 13:30:00 EDT, Weight Dosing doxycycline, 100 mg = 1 cap(s), Oral, BID, X 7 day(s), # 14 cap(s), Refills(s) 0, Pharmacy: [facility], 172, cm, 05/08/23 (more content not included)... Normal [facility] Comment on above: Result Comment: Elec tronically [...] numbers. This can be done either in Italian (U.S[place] or metric measurements. Note that charts and online BMI calculators are available to help you find your BMI quickly and easily without having to do these calculations yourself. To calculate your BMI in Italian (U.S.) measurements: 1. Measure your weight in [...] for Disease Control and Prevention: www.cdc.gov ? [place] Heart Association: www.heart.org ? National Heart, Lung, and Blood [place]: www.nhlbi.nih.gov Summary ? Body mass index (BMI) is a number that is calculated from a person's weight and height. ? BMI may help estimate how much of a person's weight is composed of fat. BMI can help identify those who may be at higher risk for certain medical problems. ? BMI can be measured using Italian measurements or metric measurements. ? BMI charts are used to identify whether you are underweight, normal weight, overweight, or obese. This information is not intended to replace advice given to you by your health care provider. Make sure you discuss any questions you have with your health care provider. Document Revised: 05/22/2020 Document Reviewed: 03/29/2020 [place] Patient Education ? 2022 [employer]. Pulmonary Medicine Acute Bronchitis, Adult Acute bronchitis [...] condition is (more content not included)... Normal [facility] PT - Assessmentson 3 PT - Assessments [id number]: 127 Normal [facility] Nonvisit Note - PTon 04-08- 023 Nonvisit Note - PT cx 04-08-23 hf, pt le ft voice mail, stated that she is out of town, cxl. Normal [facility] Vital Signs Date Time Vital Sign Value Performing Clinician Hemant raines 02-12-2024 13:04-0400 Blood Pressure Location Eliceo Coleman [facility] 02-12-2024 13:04-0400 Body temperature 97.88 [degF] Eliceo Coleman [facility] 02-12-2024 13:04-0400 Diastolic blood pressure 86 mm[Hg] Eliceo Coleman [facility] 02-12-2024 13:04-0400 Heart rate 81 /min Eliceo Coleman [facility] 02-12-2024 13:04-0400 SaO2% (BldA) [Mass fraction] 98 % Eliceo Coleman [facility] 02-12-2024 13:04-0400 Systolic blood pressure 138 mm[Hg] Eliceo Jared [facility] 08-10-2023 11:56-0500 Body temperature 97.7 [degF] Remington Espitia [facility] 08-10-2023 11:56-0500 Diastolic blood pressure 85 mm[Hg] Remington Espitia [facility] 08-10-2023 11:56-0500 Heart rate 77 /min Remington Espitia [facility] 08-10-2023 11:56-0500 Respiratory rate 16 /min Remington Omkar [facility] 08-10-2023 11:56-0500 SaO2% (BldA) [Mass fraction] 97 % Remington Espitia [facility] 08-10-2023 11:56-0500 Systolic blood pressure 144 mm[Hg] Remington Omkar [facility] 05-16-2023 15:08-0400 Body temperature 98.06 [degF] Remington Espitia [facility] 05-16-2023 15:08-0400 Diastolic blood pressure 87 mm[Hg] Remington Omkar [facility] 05-16-2023 15:08-0400 Heart rate 104 /min Remington Espitia [facility] 05-16-2023 15:08-0400 Respiratory rate 20 /min Remington Espitia [facility] 05-16-2023 15:08-0400 SaO2% (BldA) [Mass fraction] 98 % Remington Espitia [facility] 05-16-2023 15:08-0400 Systolic blood pressure 138 mm[Hg] Remington Espitia [facility] 05-08-2023 13:27-0400 Blood Pressure Location Eliceo Jared [facility] 05-08-2023 13:27-0400 Body temperature 98.06 [degF] Eliceo Jared [facility] 05-08-2023 13:27-0400 Diastolic blood pressure 70 mm[Hg] Eliceojomar Coleman [facility] 05-08-2023 13:27-0400 Heart rate 89 /min Eliceo Jared [facility] 05-08-2023 13:27-0400 SaO2% (BldA) [Mass fraction] 97 % Eliceo Jared [facility] 05-08-2023 13:27-0400 Systolic blood pressure 112 mm[Hg] Eliceo Coleman [facility] 06-22-2022 11:41-0400 Blood Pressure Location Alexa Mckee [facility] 06-22-2022 11:41-0400 Diastolic blood pressure 71 mm[Hg] Alexa Mckee [facility] 06-22-2022 11:41-0400 Heart rate 80 /min Alexa Mckee [facility] 06-22-2022 11:41-0400 SaO2% (BldA) [Mass fraction] 98 % Alexa Mckee [facility] 06-22-2022 11:41-0400 Systolic blood pressure 109 mm[Hg] Alexa Mckee [facility] 05-27-2022 11:14-0400 Body temperature 99.14 [degF] Remington Espitia [facility] 05-27-2022 11:14-0400 Diastolic blood pressure 84 mm[Hg] Remington Espitia [facility] 05-27-2022 11:14-0400 Heart rate 71 /min Remington Espitia [facility] 05-27-2022 11:14-0400 Respiratory rate 18 /min Remington Espitia [facility] 05-27-2022 11:14-0400 SaO2% (BldA) [Mass fraction] 97 % Remington Espitia [facility] 05-27-2022 11:14-0400 Systolic blood pressure 128 mm[Hg] Remington Espitia [facility] 05-26-2022 16:25-0400 Blood Pressure Location Vishal Christina [facility] 05-26-2022 16:25-0400 Diastolic blood pressure 82 mm[Hg] Vishal Christina [facility] 05-26-2022 16:25-0400 Heart rate 72 /min Vishal Christina [facility] 05-26-2022 16:25-0400 Mean blood pressure 91 mm[Hg] Vishal Christina [facility] 05-26-2022 16:25-0400 SaO2% (BldA) [Mass fraction] 99 % Vishal Christina [facility] 05-26-2022 16:25-0400 Systolic blood pressure 108 mm[Hg] Vishal Abreue [facility] 05-26-2022 15:30-0400 Blood Pressure Location Vishal Abreue [facility] 05-26-2022 15:30-0400 Diastolic blood pressure 60 mm[Hg] Vishal Abreue [facility] 05-26-2022 15:30-0400 Heart rate 69 /min Vishal Abreue [facility] 05-26-2022 15:30-0400 Mean blood pressure 71 mm[Hg] Vishal Abreue [facility] 05-26-2022 15:30-0400 SaO2% (BldA) [Mass fraction] 97 % Vishal Abreue [facility] 05-26-2022 15:30-0400 Systolic blood pressure 92 mm[Hg] Vishal Abreue [facility] 05-26-2022 14:55-0400 Body temperature 98.42 [degF] Vishal Abreue [facility] 05-26-2022 14:55-0400 Diastolic blood pressure 64 mm[Hg] Vishal Abreue [facility] 05-26-2022 14:55-0400 Heart rate 67 /min Vishal Abreue [facility] 05-26-2022 14:55-0400 Respiratory rate 18 /min Vishal Abreue [facility] 05-26-2022 14:55-0400 SaO2% (BldA) [Mass fraction] 97 % Vishal Abreue [facility] 05-26-2022 14:55-0400 Systolic blood pressure 128 mm[Hg] Vishal Christina [facility] 05-14-2022 15:39-0400 Blood Pressure Location Alexa Mckee [facility] 05-14-2022 15:39-0400 Diastolic blood pressure 77 mm[Hg] Alexa Mckee [facility] 05-14-2022 15:39-0400 Heart rate 83 /min Alexa Mckee [facility] 05-14-2022 15:39-0400 SaO2% (BldA) [Mass fraction] 98 % Alexa Mckee [facility] 05-14-2022 15:39-0400 Systolic blood pressure 119 mm[Hg] Alexa Mckee [facility] 05-08-2022 10:23-0400 Diastolic blood pressure 72 mm[Hg] Sreedhar NILL [facility] 05-08-2022 10:23-0400 Heart rate 61 /min Sreedhar NILL [facility] 05-08-2022 10:23-0400 Respiratory rate 22 /min Sreedhar NILL [facility] 05-08-2022 10:23-0400 SaO2% (BldA) [Mass fraction] 99 % Sreedhar NILL [facility] 05-08-2022 10:23-0400 Systolic blood pressure 109 mm[Hg] Sreedhar NILL [facility] 05-08-2022 10:10-0400 Diastolic blood pressure 72 mm[Hg] Sreedhar NILL [facility] 05-08-2022 10:10-0400 Heart rate 61 /min Sreedhar NILL [facility] 05-08-2022 10:10-0400 Respiratory rate 18 /min Sreedhar NILL [facility] 05-08-2022 10:10-0400 SaO2% (BldA) [Mass fraction] 98 % Sreedhar NILL [facility] 05-08-2022 10:10-0400 Systolic blood pressure 100 mm[Hg] Sreedhar NILL [facility] 05-08-2022 10:05-0400 Diastolic blood pressure 69 mm[Hg] Sreedhar NILL [facility] 05-08-2022 10:05-0400 Heart rate 69 /min Sreedhar NILL [facility] 05-08-2022 10:05-0400 Respiratory rate 21 /min Sreedhar NILL [facility] 05-08-2022 10:05-0400 SaO2% (BldA) [Mass fraction] 97 % Sreedhar NILL [facility] 05-08-2022 10:05-0400 Systolic blood pressure 106 mm[Hg] Sreedhar NILL [facility] 05-08-2022 09:58-0400 Body temperature 97.52 [degF] Sreedhar NILL [facility] 05-08-2022 09:16-0400 Blood Pressure Location Sreedhar NILL [facility] 05-08-2022 09:16-0400 Body temperature 96.8 [degF] Sreedhar NILL [facility] 05-08-2022 09:16-0400 Respiratory rate 20 /min Sreedhar NILL [facility] 04-27-2022 15:22-0400 Blood Pressure Location Sreedhar NILL [facility] [place] 04-27-2022 15:22-0400 Diastolic blood pressure 75 mm[Hg] Sreedhar NILL [facility] [place] 04-27-2022 15:22-0400 Heart rate 81 /min Sreedhar NILL [facility] [place] 04-27-2022 15:22-0400 Respiratory rate 16 /min Sreedhar NILL [facility] [place] 04-27-2022 15:22-0400 Systolic blood pressure 112 mm[Hg] Sreedhar NILL [facility] [place] 03-17-2022 14:46-0400 Blood Pressure Location Arley Alisha [facility] 03-17-2022 14:46-0400 Diastolic blood pressure 68 mm[Hg] Arley Russellofferson [facility] 03-17-2022 14:46-0400 Heart rate 64 /min Arley Russellofferson [facility] 03-17-2022 14:46-0400 Respiratory rate 18 /min Arley Christofferson [facility] 03-17-2022 14:46-0400 SaO2% (BldA) [Mass fraction] 97 % Arley Christofferson [facility] 03-17-2022 14:46-0400 Systolic blood pressure 106 mm[Hg] Arley Russellofferson [facility] Encounters Encounter Date Encounter Type Care Provider Facility Start: 04-04-2024 End: 04-04-2024 ambulatory JHONY QUINTANILLAGABRIELA Not Available Start: 03-30-2024 ambulatory CAREY TOWNSEND Fac[facility]ity:[facility] Start: 02-17-2024 End: 02-17-[address] [facility] Work Phone: Start: 02-17-2024 End: 02-17-2024 [facility] Start: 02-12-2024 End: 02-12-2024 ambulatory Eliceo Coleman Facility:[facility] [place] Start: 02-12-2024 End: 02-12-2024 Patient encounter procedure Eliceo Coleman [facility] Start: 11-25-2023 End: 11-25-2023 ambulatory CAREY COURTNEY Not Available Start: 08-23-2023 End: 08-23-2023 ambulatory CAREY TOWNSEND Facility:[facility] Start: 08-23-2023 End: 08-23-2023 Patient encounter procedure CAREY TOWNSEND [facility] Start: 08-10-2023 End: 08-10-2023 Emergency department patient visit Remington Espitia [facility] Start: 05-16-2023 End: 05-16-2023 Emergency department patient visit Remington Espitia [facility] Start: 05-08-2023 End: 05-08-2023 ambulatory Eliceo Coleman Facility: [place] Start: 05-08-2023 End: 05-08-2023 Patient encounter procedure Eliceo Coleman [facility] Start: 11-04-2022 End: 11-04-2022 Patient encounter procedure Carey Courtney [facility] Start: 10-01-2022 End: 10-01-2022 Lab Drop off Eduarda Gaines [facility] Start: 06-22-2022 End: 06-22-2022 Patient encounter procedure Alexa Mckee [facility] Start: 06-09-2022 End: 06-09-2022 Patient encounter procedure Carey Courtney [facility] Start: 05-27-2022 End: 05-27-2022 Emergency department patient visit Remington Espitia [facility] Start: 05-26-2022 End: 05-26-2022 Emergency department patient visit Vishal Abreue [facility] Start: 05-14-2022 End: 05-14-2022 Patient encounter procedure Alexa Mckee [facility] Start: 05-08-2022 End: 05-08-2022 Patient encounter procedure Sreedhar ARENAS [facility] Start: 04-27-2022 End: 04-27-2022 Patient encounter procedure Sreedhar ARENAS [facility] [place] Start: 04-23-2022 End: 04-23-2022 Patient encounter procedure Carly TERRY [facility] Start: 03-23-2022 End: 03-23-2022 Patient encounter procedure Arley Brito [facility] Start: 03-19-2022 End: 04-30-2022 Pre-admission assessment Arley Brito [facility] Start: 03-17-2022 End: 05-05-2022 Pre-admission assessment Dania MCINTYRE [facility] Start: 03-17-2022 End: 03-17-2022 Patient encounter procedure Arley Brito [facility] Procedures Date Procedure Procedure Detail Performing Clinician Start: 05-08-2022 Colonoscopic polypectomy Sreedhar ARENAS Start: 10-22-2015 Left shoulder scope Aidana francisco j Brito Appendectomy Arley oviedo essure Arley pickardon Immunizations Immunization Date Immunization Notes Care Provider Fa cility 05-26-2022 tetanus toxoid, redu michoacano diphtheria toxoid, and acellular pertussis vaccine, adsorbed Vishal Christina [facility] Comment on above: Result Comment: Left deltoid Result Comment: Left deltoid 08-26-2021 SARS-CoV-2 (COVID-19 ) mRNA-1273 vaccine Eliceo Coleman [facility] 11-07-2020 SARS-CoV-2 (COVID-19 ) mRNA-1273 vaccine Eliceo Coleman [facility] 10-10-2020 SARS-CoV-2 (COVID-19 ) mRNA-1273 vaccine Eliceo Coleman [facility] 07-11-2020 influenza virus vaccine, unspecified formulation Eliceo Coleman [facility] Payers Date Payer Category Payer Self-pay 2022 Unknown [id number] 1975 Unknown [id number] 2.16.8 [id number] 1975 Unknown [id number] 2.16.8 [id number] 1975 Unknown [id number] 2.16.8 [id number] 1976 Unknown [id number] 2.16.8 [id number] 1976 Unknown [id number] 2.16.8 [id number] 1976 Unknown [id number] 2.16.8 [id number] 1976 Unknown [id number] 2.16.84 [id number] 1975 Unknown [id number] 2.16.84 [id number] Social History Date Type Detail Facility Tobacco smoking status No Smokin g Status Entered [facility] Sex Assigned At Female [facility] Start: 04-27-2022 End: 02-12-2024 Never smoked tobacco (finding) [facility] [place] Never [facility] [place] Start: 1975 Sex Assigned At Female Danielle [facility] Functional Status Date Assessment Result Facility 02-12-2024 Functional Status N/A [facility] 08-10-2023 Functional Status N/A [facility] 05-16-2023 Functional Status N/A [facility] 05-08-2023 Functional Status N/A [facility] 06-22-2022 Functional Status No [facility] 05-27-2022 Functional Status N/A [facility] 05-26-2022 N/A [facility] 05-14-2022 Functional Status No [facility] 05-08-2022 Functional Status N/A [facility] 04-27-2022 N/A [facility] [place] 03-17-2022 Functional Status N/A [facility] Clinical Notes 04-14-2020 to 08-10-2023 Note Date [...] provider may recommend RICE therapy along with hbbw-znl-ixocwsw pain medicines to manage your pain. Exercises [...] water aerobics, and biking. General instructions Take pbls-few-iavauuf and prescription medicines only as told by [...] affected foot. This is called RICE therapy. Jnmh-yzx-cixmdeo medicines can also be used to manage pain. This information is not intended to replace advice given to you by your health care provider. Make sure you discuss any questions you have with your health care provider. Document Revised: 12/16/2020 Document Reviewed: 12/16/2020 [place] Patient Education 2022 [employer]. Follow Up Care 08/10/2023 11:53:44 With:CAREY TOWNSEND DPM Address: When:2 to 4 days Comments:Call today to schedule your follow up With:Carey Courtney MD, [facility] Address: [address] [place], [place] [id number] When:08/13/2023 [facility] 08-10-2023 Evaluation + Plan note Extrac brittany from: Title:ED Note Author:Amy Hernandez PA-C Date :08/10/23 1. Plantar fasciitis, left ( M72.2: Plantar fascial fibromatosis) Ordered: diclofenac topical, 2 gm, Topical, QID for pain for 7 day(s), 100 gm, Refill(s) 0, not to exceed 8 grams/day/single joint of upper extremities, [facility], 173, cm, 08/10/23 12:00:00 EST, Height/Length Dosing, 100, kg, 08/10/23 12:00:00 EST, Weight Dosing predniSONE, See Instructions, 6 PO x 3 days then 4 PO x 5 days then 2 PO x 5 days then 1 PO x 5 days then 1/2 PO x 5 days, # 58 tab(s), Refills(s) 0, Pharmacy: [facility], 173, cm, 08/10/23 12:00:00 EST, Height/Length Dosing, 100, kg, 08/10/23 12:... Orders: ketorolac, 15 mg = 0.5 mL, Injection, IntraMuscular, Once, Stop date 08/10/23 14:06:00 EST, STAT, Start date 08/10/23 14:06:00 EST, 08/10/23 14:06:00 EST [facility]09-03-2023 Hospital Discharge instructions Patient Education 05/16/2023 16:18:04 [...] condition. 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 Avoid contact with people who have cold [...] it is easier to cough up. Take ayst-tdc-hlwddkf and prescription medicines only as told by [...] provider. Document Revised: 12/31/2021 Document Reviewed: 12/31/2021 [place] Patient Education 2022 [employer]. Follow Up Care 05/16/2023 15:03:49 With:Carey Courtney Address: [address] [place] [id number] [facility] (1) When:05/19/2023 16:16:58 Comments:Call the office [...] any new or worsening symptoms. [facility]09-03-2023 Evaluation + Plan noteExtracted from: Title:ED Note Author:Remington Espitia DO Date: Acute bronchitis (J20.9: Acu te bronchitis, unspecified) Orders: albuterol, 2 puff(s), Inhalation, q4hr Cough and Congestion, 1 EA, Refill(s) 0, [facility], 172, cm, 05/16/23 15:12:00 EDT, Height/Length Dosing, 115.5, kg, 05/16/23 15:12:00 EDT, Weight Dosing brompheniramine/dextromethorphan/PSE, 5 mL, Oral, QID for cold symptoms, 200 mL, Refill(s) 0, [employer] #[facility], 172, cm, 05/16/23 15:12:00 EDT, Height/Length Dosing, 115.5, kg, 05/16/23 15:12:00 EDT, Weight Dosing XR Chest 2 Views Future Scheduled Tests Radiology* CT Venogram Abdomen and Pelvis w/ Contrast 06/22/22 [facility]08-26-2023 Hospital Discharge instructions Patient Education 05/08/2023 14:02:42 [...] condition. 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 Avoid contact with people who have cold [...] it is easier to cough up. Take qomh-wxl-zscfvwg and prescription medicines only as told by [...] provider. Document Revised: 12/31/2021 Document Reviewed: 12/31/2021 [employer] Patient Education 2022 [employer] 05/08/2023 14:02:38 BMI for Adults BMI [...] numbers. This can be done either in Italian (U.S.) or metric measurements. Note that charts and online BMI calculators are available to help you find your BMI quickly and easily without having to do these calculations yourself. To calculate your BMI in Italian ([place].S.) measurements: 1.Measure your weight in pounds [...] Centers for Disease Control and Prevention: www.cdc.gov [place] [employer]: www.heart.org National Heart, Lung, and Blood [place]: www.nhlbi.nih.gov Summary Body mass index (BMI) is a number that is calculated from a person's weight and height. BMI may help estimate how much of a person's weight is composed of fat. BMI can help identify thosewho may be at higher risk for certain medical problems. BMI can be measured using Italian measurements or metric measurements. BMI charts are used to identify whether you are underweight, normal weight, overweight, or obese. This information is not intended to replace advice given to you by your health care provider. Make sure you discuss any questions you have with your health care provider. Document Revised: 05/22/2020 Document Reviewed: 03/29/2020 [place] Patient Education 2022 [employer]. Follow Up Care 05/08/2023 13:11:29 With:Dusty ALVAREZ, Carey Navarro, KADE Address: [address] [place] [phone]- When: Unknown [facility] 10-10-2022 Evaluation + Plan note Future Scheduled Tests Radiology* CT Venogram Abdomen and Pelvis w/ Contrast 06/22/22 [facility] 09-14-2022 Hospital Discharge instructions Patient Education 05/27/2022 12:47:15 Sutures, Leilani, or Adhesive Wound Closure, Cngs-uw-Uhym Sutures, [place], or Adhesive Wound Closure Doctors use stitches [...] reaction that can lead to infection. Leilani [place] are often used to close surgical cuts (incisions). To use leilani, your doctor: Holds the edges of your wound close together. Places a staple across the wound. Uses a tool to secure the staple to the skin. Repeats this with as many leilani as needed. [place] are faster to use than sutures, and they cause less reaction from your skin. Leilani need to be removed using a tool that bends the leilani away from your skin. Follow these instructions at home: Medicines Take yfho-isf-nndiace and prescription medicines only as told by [...] cannot use soap and water, use hand geothermal powerplant supervisor. Do not try to remove your wound [...] 06/27/2010 Document Revised: 08/12/2018 Document Reviewed: 07/07/2018 [place] Patient Education 2020 [employer]. 05/27/2022 12:47:15 Wrist Sprain, Adult Wrist Sprain, [...] your health care provider. General instructions Take wdwc-miu-jmvbhnf and prescription medicines only as told by [...] 05/03/2015 Document Revised: 08/12/2018 Document Reviewed: 03/18/2017 [place] Patient Education 2020 [employer] Follow Up Care 05/27/2022 11:11:30 With:[employer]: [facility] [phone] Address:Unknown When:05/30/2022 12:35:57 [facility]09-14-2022 Evaluation + Plan noteExtracted from: Title:ED Note Author:Jareth Childs PA-C te:05/27/22 Wrist sprain (S63.509A: Unsp ecified sprain of unspecified wrist, initial encounter) Orders: Splint Application Wrist XR Wrist 3+ Views Left Future Appointments Appointment Date:05/28/2022 03:30:00 PM Scheduled Provider:Yancy MOHAMUD CNP Location:[facility] Occupational Health Appointment Type:IH ER Follow up [...] LE Venous Duplex Bilateral 03/23/22 [facility]09-13-2022 Hospital Discharge instructions Patient Education 05/26/2022 16:32:15 [...] Ask your health care provider for a mkdg-gv-wryq plan for gradually returning to activities. Ask [...] your friends, family, a trusted colleague, and network security officer about your injury, symptoms, and restrictions. Have them watch for any new or worsening problems. General instructions Take dhli-dur-wyatxzx and prescription medicines only as told by [...] 08/30/2006 Document Revised: 09/27/2019 Document Reviewed: 09/22/2019 [place] Patient Education 2020 [employer]. 05/26/2022 16:32:15 Concussion, Adult Concussion, Adult A [...] gradually returning to activities. General instructions Take ojad-jyf-jrnwcij and prescription medicines only as told by [...] higher risk of serious complications. Tell your network security officer, teachers, school nurse, school counselor, diving coach, or business trainer about your injury, symptoms, and restrictions. [...] 11/19/2004 Document Revised: 04/20/2019 Document Reviewed: 04/20/2019 [place] Patient Education 2020 [employer] 05/26/2022 16:32:15 Abrasion Abrasion An abrasion [...] instructions at home: Medicines Take or apply nznp-dhq-yhbjvqv and prescription medicines only as told by [...] 06/09/2006 Document Revised: 08/12/2018 Document Reviewed: 04/13/2018 [place] Patient Education 2020 [employer]. Follow Up Care 05/26/2022 14:55:06 With:Carey Courtney Address: [address] [place], [place] [id number] [facility] (1) When:05/29/2022 15:48:24 Comments:Follow-up with your primary care provider in 3 to 5 days. If symptoms worsen, do not improve, or new symptoms arise please report back to emergency department for further evaluation. [facility]09-13-2022 Evaluation + Plan noteExtracted from: Title:ED Note [...] LE Venous Duplex Bilateral 03/23/22 [facility]08-26-2022 Evaluation + Plan noteExtracted from: Title:Post-anesthesia - General Author:Thomas Ratliff DO Date:05/08/22 Plan Transfer/ Discharge: Condition stable. Extracted from: Title:Pre-anesthesia - Endoscopy Author:Thomas Pizarro Jr., DO Date:05/08/22 Plan [place] [employer] Anesthesiologists (ASA) physical status classification: [...] LE Venous Duplex Bilateral 03/23/22 [facility]08-26-2022 Hospital Discharge instructions Patient Education 05/08/2022 10:07:53 Colonoscopy, Care After Surgery [place] (CUSTOM) Colonoscopy Care After Surgery Please read the instructions outlined below and refer to this sheet in the next few weeks. These discharge instructions provide you with general information on caring for yourself [facility] Your doctor may also give you specific [...] 04/27/2022 15:46:02 With:Sreedhar ARENAS Address: Chris Arce, [facility] [address] [phone]- Business (1) When:7 to 10 days [facility]07-05-2022 Evaluation + Plan note Future Scheduled Tests Laboratory* B-Type Natriuretic Peptide 03/17/22 * Comprehensive Metabolic Panel 03/17/22 * Lipid Panel 03/17/22 Radiology* CT Venogram Abdomen and Pelvis w/ Contrast 06/22/22 * US LE Venous Duplex Bilateral 03/23/22 [facility]08-22-2020 Evaluation + Plan note Future Appointments Appointment Date:04/29/2022 01:00:00 PM Scheduled Provider: [facility] Appoint[facility] Type:CV Echo (FT) Appointment Date:05/04/2022 10:00:00 AM Scheduled Provider:Dania MCINTYRE CNP [facility] Type:Cardiology Follow Up (FT) Appointment Date:05/08/2022 10:00:00 AM Scheduled Provider: Location:[facility] Appointment Type:Surgery FT Appointment Date:05/14/2022 03:30:00 PM Scheduled Provider:Alexa Mckee MD Location:.[facility] Appointment Type:Vascular New Patient (FT) Future Scheduled Tests Laboratory* B-Type Natriuretic Peptide 03/17/22 * Comprehensive Metabolic Panel 03/17/22 * Lipid Panel 03/17/22 Radiology* Echo Transthoracic Complete 04/29/22 * US LE Venous Duplex Bilateral 03/23/22 [facility] [place] [id number] Evaluation + Plan note Future Appointments Appointment Date:04/13/2022 01:00:00 PM Scheduled Provider: [facility] Appointment Type:CV Echo (FT) Appointment Date:04/14/2022 03:30:00 PM Scheduled Provider:Dania MCINTYRE CNP Location:.[facility] Appointment Type:Cardiology Follow Up (FT) Future Scheduled Tests Laboratory* B-Type Natriuretic Peptide 03/17/22 * Comprehensive Metabolic Panel 03/17/22 * Lipid Panel 03/17/22 Radiology* Echo Transthoracic Complete 04/13/22 * US LE Venous Duplex Bilateral [facility]23[facility] Future Appointments Appointment Date:04/14/2022 03:30:00 PM Scheduled Provider:Dania MCINTYRE CNP Location[facility] Appointment Type:Cardiology Follow Up (FT) Future Scheduled Tests Laboratory* B-Type Natriuretic Peptide 03/17/22 * Comprehensive Metabolic Panel 03/17/22 * Lipid Panel 03/17/22 [facility] Future Appointments Appointment Date:04/27/2022 03:00:00 PM Scheduled Provider:Sreedhar ARENAS MD Location:[facility] Appointment Type:GS New 30 Appointment Date:04/29/2022 01:00:00 PM Scheduled Provider: [facility] Appointment Type:CV Echo (FT) Appointment Date:05/04/2022 10:00:00 AM Scheduled Provider:Dania MCINTYRE CNP Location:.[facility] Appointment Type:Cardiology Follow Up (FT) Future Scheduled Tests Laboratory* B-Type Natriuretic Peptide 03/17/22 * Comprehensive Metabolic Panel 03/17/22 * Lipid Panel 03/17/22 Radiology* Echo Transthoracic Complete 04/29/22 * US LE Venous Duplex Bilateral [facility]23/[facility] Future Appointments Appointment Date:05/04/2022 10:00:00 AM Scheduled Provider:Dania MCINTYRE CNP [facility] Type:Cardiology Follow Up (FT) Appointment Date:05/08/2022 10:00:00 AM Scheduled Provider: Location:[facility] Appointment Type:Surgery FT Appointment Date:05/14/2022 03:30:00 PM Scheduled Provider:Alexa Mckee MD Location:.[facility] Appointment Type:Vascular New Patient (FT) Future Scheduled Tests Laboratory* B-Type Natriuretic Peptide 03/17/22 * Comprehensive Metabolic Panel 03/17/22 * Lipid Panel 03/17/22 Radiology* US LE Venous Duplex Bilateral 03/23/22 [facility] Future Appointments Appointment Date:05/08/2022 10:00:00 AM Scheduled Provider: Location:[facility] Appointment Type:Surgery FT Appointment Date:05/14/2022 03:30:00 PM Scheduled Provider:Alexa Mckee MD Location:.[facility] Appointment Type:Vascular New Patient (FT) Future Scheduled Tests Laboratory* B-Type Natriuretic Peptide 03/17/22 * Comprehensive Metabolic Panel 03/17/22 * Lipid Panel 03/17/22 Radiology* US LE Venous Duplex Bilateral 03/23/22 [facility] Future Appointments Appointment Date:05/21/2022 03:40:00 PM Scheduled Provider:Sreedhar ARENAS MD Location:[facility] Appointment Type: Post Op 15 Appointment Date:06/22/2022 11:30:00 AM Scheduled Provider:Alexa Mckee MD Location:.[facility] Appointment Type:Vascular Follow Up (FT) Future Scheduled Tests Laboratory* B-Type Natriuretic Peptide 03/17/22 * Comprehensive Metabolic Panel 03/17/22 * Lipid Panel 03/17/22 Radiology* US LE Venous Duplex Bilateral 03/23/22 [facility] Future Appointments Appointment Date:06/22/2022 11:30:00 AM Scheduled Provider:Alexa Mckee MD Location:.[facility] Appointment Type:Vascular Follow Up (FT) Future Scheduled Tests Laboratory* B-Type Natriuretic Peptide 03/17/22 * Comprehensive Metabolic Panel 03/17/22 * Lipid Panel 03/17/22 Radiology* US LE Venous Duplex Bilateral [facility]/23/22 [facility] note[facility] assessment information available [facility] Work Phone: Hospital course Narrative No data available for this [facility] No data available for this section [facility] No data available for this section [facility] Summary Purpose Family History No Family History Records Found Advance Directives No Advanced Directives Records FoundNo Advanced Directives Records FoundNo Advanced Directives Records Found Additional Source Comments Care Team (unrecognized sect ion and content) Team Status: Inactive Member Role Status Dates Carey Townsend DPM MS Attending Provider Active Start: February 17, 2024 End: February 17, 2024 Goals (unrecognized section and content) Goals may be documented in a n alternate section INFORMATION SOURCE (unrecogn ized section and content) DATE CREATED AUTHOR 03/03/2024 [facility] DATE CREATED AUTHOR AUTHOR'S ORGANIZ ATION 04/06/2024 [facility] DATE CREATED AUTHOR AUTHOR'S ORGANIZ ATION 04/06/2024 [facility] EPIC FOR RECORDS PERTAINING TO PATIENTS WHO ARE [...] BE BASED ON THE PRIMARY CLINICAL RECORDS. [facility] [employer] [facility]. provides no warranty or guarantee of the accuracy or completeness of information in this document.
== END 2024-04-12 10:09 | disposition home or self-care (01) ==
LOC: EC 10:09
PROVIDERS: Family Provider Family Medicine; Visit Provider Podiatrist Foot & Ankle Surgery
DX: M25.572 Pain in left ankle and joints of left foot (principal)
CPT/HCPCS: 73630

== ENCOUNTER 2024-05-23 13:10 | Outpatient (OUT) | payer OTHER, SELFPAY ==
--- NOTE | 2024-05-23 | XR_ITS ---
The [address] [address] Patient Name: JAVIER OROSCO MRN: [id number] date: 1975 Sex: F Assigned Patient Location: Current Patient Location: Accession/Order Number: [id number] Exam Date: 05/23/2024 13:11 Report Date: 05/24/2024 13:45 At the request of: CAREY SUTTON Procedure: XR foot LT min 3V PROCEDURE: XR foot LT min 3V COMPARISON: 04/12/2024 HISTORY: LEFT FOOT PAIN FINDINGS: BONES:Posterior calcaneal osteotomy transfixed with 2 cannulated screws. 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 Transverse osteotomy and dorsal stable placement base of the first metatarsal with likely bony bridging. No acute fracture, dislocation or mechanical failure. Minimal enthesopathic spurring of the calcaneus at the Achilles insertion SOFT TISSUES:Negative. No visible soft tissue swelling. EFFUSION:None visible. OTHER: Negative. XR/XR foot LT min 3V IMPRESSION: Stable postsurgical changes with no acute abnormality Electronically authenticated by: ALEXUS GUPTA Date: 05/24/2024 13:45
--- OUTSIDE RECORDS SUMMARY | 2024-05-23 13:22 | XMS_ITS | CCD ---
Author Organization [facility] Care Team Providers Care Bakery Deliverer Name Role Phone Carey Courtney Primary Care Physician XOCHITL Townsend Attending Provider Carey Townsend Attending Unavailable Carey Townsend Admitting Unavailable CAREY COURTNEY Attending Unavailable JHONY HOWE Attending Unavailab Amy Banegas Referring Unavailable Amy Arreguin Attending Unavailable Amy Arreguin Admitting Unavailable Remington Espitia Attending Unavailable Eliceo Coleman Attending Unavailable CAREY TOWNSEND Referring Unavailable CAREY TOWNSEND Attending Unavailable CAREY TOWNSEND Referring Unavailable CAREY TOWNSEND Attending Unavailable CAREY TOWNSEND Admitting Unavailable Allergies Allergy Classification Reported Allergen(s) Allergy Type Date of Onset Reaction(s) Facility (20 sources) Sulfonamides (Antibiotic); Translations: [sulfa drugs] Drug allergy Weal (disorder) [facility] Medications Current Medications Medication Drug Class(es) [...] day(s), # 21 cap(s), Refills(s) 0, Pharmacy: [facility], 172, cm, 02/12/24 13:06:00 EDT, Height/Length Dosing, 121, kg, 02/12/24 13:06:00 EDT, Weight Dosing Start Date: 02/12/24 Stop Date: 02/19/24 Status: Ordered Start: 05-08-2023 End: 05-15-2023 take 1 capsule by mouth three times daily Tessalon 100 mg Cap 100 mg = 1 cap(s), Oral, TID, X 7 day(s), # 21 cap(s), Refills(s) 0, Pharmacy: [facility], 172, cm, 05/08/23 13:30:00 EDT, Height/Length Dosing, 115.5, kg, 05/08/23 13:30:00 EDT, Weight Dosing Start Date: 05/08/23 Stop Date: 05/15/23 Status: Ordered brompheniramine maleate 0.4 mg/ml / dextromethorphan hydrobromide 2 mg/ml / pseudoephedrine hydrochloride 6 mg/ml oral solution (3 sources) alpha-Adrenergic Agonist, Uncompetitive U-ryialb-P-aspartate Receptor Antagonist, Sigma-1 Agonist Start: 05-16-2023 take 5 mL by mouth four times daily Bromfed DM oral syrup 5 mL, Oral, QID for cold symptoms, 200 mL, Refill(s) 0, [facility], 172, cm, 05/16/23 15:12:00 EDT, Height/Length [...] exceed 8 grams/day/single joint of upper extremities, [facility], 173, cm, 08/10/23 12:00:00 EST, Height/Length [...] day(s), # 14 cap(s), Refills(s) 0, Pharmacy: [facility], 172, cm, 05/08/23 13:30:00 EDT, Height/Length [...] nasal route twice daily Flonase 0.05 mg/inh [place] 1 spray(s), Nasal, BID for 7 day(s), 16 gm, Refill(s) 0, each nostril, [facility], 172, cm, 02/12/24 13:06:00 EDT, Height/Length Dosing, 121, kg, 02/12/24 13:06:00 EDT, Weight Dosing Start Date: 02/12/24 Stop Date: 02/19/24 Status: Ordered hydroCHLOROthiazide 25 mg oral tablet (20 sources) Thiazide Diuretic Start: 10-15-2015 hydrochlorothiazide 25 [...] days, # 58 tab(s), Refills(s) 0, Pharmacy: [facility], 173, cm, 08/10/23 12:00:00 EST, Height/Length Dosing, 100, kg, 08/10/23 12:00:00 EST, Weight Dosing Start Date: 08/10/23 Status: Ordered Start: 05-08-2023 End: 05-13-2023 take 2 tablets by mouth once daily predniSONE 20 mg Tab 40 mg = 2 tab(s), Oral, Daily, X 5 day(s), # 10 tab(s), Refills(s) 0, Pharmacy: [facility], 172, cm, 05/08/23 13:30:00 EDT, Height/Length Dosing, 115.5, kg, 05/08/23 13:30:00 EDT, Weight Dosing Start Date: 05/08/23 Stop Date: 05/13/23 Status: Ordered 24 hr venlafaxine 75 mg extended release oral capsule (17 sources) Serotonin and Norepinephrine Reuptake Inhibitor Start: [...] Cough and Congestion, 1 EA, Refill(s) 0, [facility], 172, cm, 05/16/23 15:12:00 EDT, Height/Length [...] initial encounter] Onset: 05-26-2022 Episodic Epilepsy; convulsions (20 sources) Febrile convulsion 10-15-2015 Episodic Mood disorders (17 sources) Depressive disorder 04-24-2022 Chronic Nervous system congenital anomalies (17 sources) Cerebral ventriculomegaly 04-24-2022 Chronic Other and unspecified benign neoplasm (17 sources) 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 Other and unspecified benign neoplasm (1 source) Polyp of colon; Translations: [Polyp of colon] Onset: 05-08-2022 Episodic Other connective tissue disease (20 sources) Disorder of rotator cuff 10-15-2015 Episodic Other connective tissue disease (20 sources) Impingement syndrome of shoulder region 10-15-2015 [...] Episodic Other ear and sense organ disorders (17 sources) 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 Other injuries and conditions due to external causes (1 source) Injury of head; Translations: [Unspecified injury of head, initial encounter] Onset: 05-26-2022 Episodic Other nervous system disorders (17 sources) Chronic pain syndrome 04-24-2022 Chronic Other nutritional; endocrine; and metabolic disorders (17 sources) Body mass index 30+ - obesity [...] head, initial encounter] Onset: 05-26-2022 Episodic Unclassified (17 sources) Patient encounter status 04-27-2022 Varicose veins of lower extremity (1 source) Pain due to varicose veins of lower extremity; Translations: [Varicose veins of unspecified lower extremity with pain] Onset: 05-14-2022 Episodic Results Test Name Value Interpretation Reference Range Facility Nonvisit Note - PTon 024 Nonvisit Note - PT Nonvisit Note - PT Patient had a conflict and requested to cancel. [facility] Cole 02-17-2024 L Specimen: [id number] Received: 02/17/24 Status: MALCOLM Webb Num: [id number] Spec Type: Surgical Subm Dr: Carey Townsend DPM, MS Tissues: A Bone Fragments - Other than Path Fracture (LT PERONEUS LONGUS) Procedures: HE, Gross/Micro L3, Decalcification Age/ Patient Sex Location Account Attending Physician Javier Brown 48/F [facility] [id number] Carey Townsend DPM, MS SPEC NUM: [id number] RECD: 02/17/24 STATUS: MALCOLM WEBB NUM: [id number] MIRNA: 02/17/[address] [facility] [address]: Carey Townsend,XOCHITL, [place] ENTERED: 02/17/[address] [facility] DR: Qing Calixto SPEC TYPE: Surgical DEPT: [...] Cut sections reveal fibrous and bony surfaces. Finger Waver sections following decalcification are submitted following decalcification in A1. TW Specimen: [id number] Received: 02/17/24 Status: [facility] Num: [id number] Spec Type: Surgical Subm Dr: Carey Townsend,XOCHITL, MS Tissues: A Bone Fragments - Other than Path Fracture (LT PERONEUS LONGUS) Procedures: REBECCA, Gross/Micro L3, Decalcification Patient: Javier Brown [id number] (Continued) Specimen: [id number] Received: 02/17/24 (Continued) Signed (signature on file) Dallin Martell MD 02/21/24 162 Specimen: [id number] Received: 02/17/24 Status: MALCOLM Webb Num: [id number] Spec Type: Surgical Subm Dr: Carey Townsend,DPM, MS Tissues: A Bone Fragments - Other than Path Fracture (LT PERONEUS LONGUS) Procedures: REBECCA, Gross/Cristal L3, Decalcification Patient: Javier Brown [id number] (Continued) Specimen: [id number] Received: 02/17/24 (Continued) CPT Codes [id number] Specimen: [id number] Received: 02/17/24 Status: MALCOLM Webb Num: [id number] Spec Type: Surgical Subm Dr: Carey Townsend,DPKaleb, MS Tissues: A Bone Fragments - Other than Path Fracture (LT PERONEUS LONGUS) Procedures: REBECCA, Gross/Cristal L3, Decalcification Patient: Javier Brown [id number] (Continued) Signed (signature on file) Dallin Martell MD 02/21/24 1626 Normal [facility] Physician [facility] Family Medicine Office/Clini c Noteon 02-13-2024 Family [...] with voice recognition software. Occasional wrong-word or ?tikzk-m-oetg? substitutions may have occurred due to the inherent limitations of voice recognition software. 48-year-old female presents to [facility] today with chief complaint of cough [...] Ankle reconstructive surgery with Dr. Townsend in [place]. Patient does not wish to be sick [...] When Contact Information Dusty ALVAREZ, Carey Navarro, [facility] [address] [place] [address]- Additional Instructions: Patient Education BMI for Adults Upper Respiratory Infection, Adult Problem List/Past Medical History Ongoing Acoustic neuroma BMI 39.0-39.9,adult Cerebral ventriculomegaly Chronic pain syndrome Depression Mixed conductive and sensorineural hearing loss Screening for malignant neoplasm of colon Historical No qualifying data Pro (more content not included)... [facility] Comment on above: Result Comment: Elec [...] to help relieve symptoms, such as: ? Oboh-ehu-xjehqyl cold medicines. ? Cough suppressants. Coughing is [...] other clear broths. General instructions ? Take ciyj-rff-mkarptt and prescription medicines only as told by [...] and water are not available, use hand fire warden. ? Avoid touching your mouth, face, eyes, [...] Get help (more content not included)... [facility] Ambulatory Visit Summaryon 0 02-12-2024 Ambulatory Visit [...] for choosing us for your care. [facility] MRI Ankle w/o Contrast Lefto n 08-24-2023 [...] by: BELLA Technologist: HUNTER Technical Comments None [facility] Consent for Treatmenton 08-13 Consent for Treatment [id number] F [facility] RAD - MRI Screening Formon 10-24-2022 RAD - MRI Screening Form [id number]#1.00TIFF [facility] Physician Orderon 08-20-2023 Physician Order [id number]#1.00TIF F [facility] Consent for Treatmenton 07-15 Consent for Treatment [id number]#1.00TIF F [facility] Discharge Instructionson Discharge Instructions [id number] FF [facility] ED Clinical Summaryon 2022 ED Clinical Summary (Inserted Image. Linda ble to display) [place] [id number] ED Clinical Summary Person Information Name: JAVIER BROWN [facility] Age: 47 Years : 1975 Sex: Female Language: [place] PCP: Carey Courtney MD Marital Status: Phone: [phone] Visit Id: Visit Reason: Foot injury - [...] 14:19:56 08/10/2023 14:19:56 08/10/2023 14:19:56 AD[address]ESS: [address] [facility] [id number] PHYS DOC NOTES: MEDICAL INFORMATION: Prescriptions Given: New Medications [facility], [address] [place], [place] [id number], [phone] diclofenac topical (Voltaren Gel 1% Gel) 2 [...] up With: Address: When: Carey Courtney MD, [facility] [address] [place] [address] In 3 days 08/13/2023 DIAGNOSIS: 1:Plantar fasciitis, left [facility] ED Note-Physicianon 08-10-20 ED Note-Physician Basic Information Time Seen: Amy Hernandez PA-C 08/10/2023 12:01 Chief Complaint pt repgills left foot pain for months, has had PT done. Pt reports pain is on posterior portion of foot in arch. [place] a pop when stepping into a van [...] Voltaren gel until she can see her real estate recruiter. I offered her crutches and she declines as she states that she has these at home. Likely her Planter fasciitis versus ligament or tendon injury as she states that she heard a pop. She is to follow-up with her real estate recruiter. Afebrile, not tachycardic, tolerating p.o. and hemodynamically stable to be discharged home. Educated side effect of medications. Answered all questions. Patient in agreement with treatment. Assessment/Plan 1. Plantar fasciitis, left (M72.2: Plantar fascial fibromatosis) Ordered: diclofenac topical, 2 gm, Topical, QID for pain for 7 day(s), 100 gm, Refill(s) 0, not to exceed 8 grams/day/single joint of upper extremities, [facility], 173, cm, 08/10/23 12:00:00 EST, Height/Length Dosing, 100, kg, 08/10/23 12:00:00 EST, Weight Dosing predniSONE, See Instructions, 6 PO x 3 days then 4 PO x 5 days then 2 PO x 5 days then 1 PO x 5 days then 1/2 PO x 5 days, # 58 tab(s), Refills(s) 0, Pharmacy: [facility], 173, cm, 08/10/23 12:00:00 EST, Height/Length [...] QID, PRN Follow-up With When Contact Information Dusty ALVAREZ, Carey Navarro, [facility] In 3 days 08/13/[address] [address] Additional Instructions: CAREY TOWNSEND DPM Within 2 [...] 3+ V (more content not included)... [facility] Comment on above: Result Comment: Elec [...] provider may recommend RICE therapy along with auom-yem-wivhrlh pain medicines to manage your pain. ? [...] aerobics, and biking. General instructions ? Take fxqx-muw-dumgcfx and prescription medicines only as told by [...] affected foot. This is called RICE therapy. Cuct-fzo-dlwriav medicines can also be used to manage pain. This information is not (more content not included)... [facility] ED Patient Summaryon 023 ED Patient Summary (Inserted Image. Linda ble to display) [address] [address] Patient Discharge Instructions Person Information Name: JAVIER BROWN Age: 47 Years Arrival Date: 08/10/2023 11:52:25 Discharge Diagnosis: 1:Plantar fasciitis, left Primary Care Physician: Dusty ALVAREZ, Carey Navarro Provider Information Primary Provider: Remington Espitia DO Advanced Ticket Writer:None The exam and treatment you received in the Emergency Department were for an urgent problem and are not intended as complete care. It is important that you follow up with a doctor, nurse practitioner, or physician?s food trades assistants for ongoing care. If your symptoms become [...] up With: Address: When: Carey Courtney MD, [address] [address] In 3 days 08/13/2023 In the event that this physician does not participate in your insurance network, please consult with your insurance company to find a nearby participating provider. Patient Education Materials: Plantar Fasciitis A MESSAGE TO ALL PATIENTS REGARDING OPIOIDS PRESCRIPTION OPIOIDS: WHAT YOU NEED TO KNOW Prescription opioids can be used to help relieve djksxwak-nc-yscawx pain and are often prescribed following a [...] care profess (more content not included)... [facility] XR Foot 3+ Views Lefton - XR [...] Signature): 08/10/2023 2:13 pm Signed by: Eddi cMnulty MD Transcribed by: BELLA Technologist: JARET Technical Comments Radiation Dose: Ka,r in mGy = . DAP = . [facility] Vital Signs Date Time Vital Sign Value Performing Clinician Faci lity 02-12-2024 13:04-0400 Blood Pressure Location Eliceo Jared [facility] 02-12-2024 13:04-0400 Body temperature 97.88 [degF] Eliceo Coleman [facility] 02-12-2024 13:04-0400 Diastolic blood pressure 86 mm[Hg] Eliceo Coleman [facility] 02-12-2024 13:04-0400 Heart rate 81 /min Eliceojomar Coleman [facility] 02-12-2024 13:04-0400 SaO2% (BldA) [Mass fraction] 98 % Eliceojomar Coleman [facility] 02-12-2024 13:04-0400 Systolic blood pressure 138 mm[Hg] Eliceo Coleman [facility] 08-10-2023 11:56-0500 Body temperature 97.7 [degF] Remington Espitia [facility] 08-10-2023 11:56-0500 Diastolic blood pressure 85 mm[Hg] Remington Espitia [facility] 08-10-2023 11:56-0500 Heart rate 77 /min Remington Espitia [facility] 08-10-2023 11:56-0500 Respiratory rate 16 /min Remingtonblair Espitia [facility] 08-10-2023 11:56-0500 SaO2% (BldA) [Mass fraction] 97 % Remington Espitia [facility] 08-10-2023 11:56-0500 Systolic blood pressure 144 mm[Hg] Remingtonblair Espitia [facility] 05-16-2023 15:08-0400 Body temperature 98.06 [degF] Remington Espitia [facility] 05-16-2023 15:08-0400 Diastolic blood pressure 87 mm[Hg] Remington Espitia [facility] 05-16-2023 15:08-0400 Heart rate 104 /min Remingtonblair Espitia [facility] 05-16-2023 15:08-0400 Respiratory rate 20 /min Remington Espitia [facility] 05-16-2023 15:08-0400 SaO2% (BldA) [Mass fraction] 98 % Remington Espitia [facility] 05-16-2023 15:08-0400 Systolic blood pressure 138 mm[Hg] Remington Omkar [facility] 05-08-2023 13:27-0400 Blood Pressure Location Eliceo Coleman [facility] 05-08-2023 13:27-0400 Body temperature 98.06 [degF] Eliceo Coleman [facility] 05-08-2023 13:27-0400 Diastolic blood pressure 70 mm[Hg] Eliceo Coleman [facility] 05-08-2023 13:27-0400 Heart rate 89 /min Eliceo Coleman [facility] 05-08-2023 13:27-0400 SaO2% (BldA) [Mass fraction] 97 % Eliceo Coleman [facility] 05-08-2023 13:27-0400 Systolic blood pressure 112 mm[Hg] Eliceo Coleman [facility] 06-22-2022 11:41-0400 Blood Pressure Location Alexa Mckee [facility] 06-22-2022 11:41-0400 Diastolic blood pressure 71 mm[Hg] Alexa Husseinan [facility] 06-22-2022 11:41-0400 Heart rate 80 /min Alexa Husseinan [facility] 06-22-2022 11:41-0400 SaO2% (BldA) [Mass fraction] 98 % Alexa Mckee [facility] 06-22-2022 11:41-0400 Systolic blood pressure 109 mm[Hg] Alexa Rafi [facility] 05-27-2022 11:14-0400 Body temperature 99.14 [degF] Remington Espitia [facility] 05-27-2022 11:14-0400 Diastolic blood pressure 84 mm[Hg] Remington Espitia [facility] 05-27-2022 11:14-0400 Heart rate 71 /min Remington Espitia [facility] 05-27-2022 11:14-0400 Respiratory rate 18 /min Remington Espitia [facility] 05-27-2022 11:14-0400 SaO2% (BldA) [Mass fraction] 97 % Remington Espitia [facility] 05-27-2022 11:14-0400 Systolic blood pressure 128 mm[Hg] Remington Espitia [facility] 05-26-2022 16:25-0400 Blood Pressure Location Vishal Christina [facility] 05-26-2022 16:25-0400 Diastolic blood pressure 82 mm[Hg] Vishal Abreue [facility] 05-26-2022 16:25-0400 Heart rate 72 /min Vishal Abreue [facility] 05-26-2022 16:25-0400 Mean blood pressure 91 mm[Hg] Vishal Abreue [facility] 05-26-2022 16:25-0400 SaO2% (BldA) [Mass fraction] 99 % Vishal Abreue [facility] 05-26-2022 16:25-0400 Systolic blood pressure 108 mm[Hg] Vishal Abreue [facility] 05-26-2022 15:30-0400 Blood Pressure Location Vishal Abreue [facility] 05-26-2022 15:30-0400 Diastolic blood pressure 60 mm[Hg] Vishal Abreue [facility] 05-26-2022 15:30-0400 Heart rate 69 /min Vishal Abreue [facility] 05-26-2022 15:30-0400 Mean blood pressure 71 mm[Hg] Vishal Carri [facility] 05-26-2022 15:30-0400 SaO2% (BldA) [Mass fraction] 97 % Vishal Christina [facility] 05-26-2022 15:30-0400 Systolic blood pressure 92 mm[Hg] Vishal Christina [facility] 05-26-2022 14:55-0400 Body temperature 98.42 [degF] Vishal Christina [facility] 05-26-2022 14:55-0400 Diastolic blood pressure 64 mm[Hg] Vishal Christina [facility] 05-26-2022 14:55-0400 Heart rate 67 /min Vishal Christina [facility] 05-26-2022 14:55-0400 Respiratory rate 18 /min Vishal Christina [facility] 05-26-2022 14:55-0400 SaO2% (BldA) [Mass fraction] 97 % Vishal Christina [facility] 05-26-2022 14:55-0400 Systolic blood pressure 128 mm[Hg] Vishal Christina [facility] 05-14-2022 15:39-0400 Blood Pressure Location Alexa Mckee [facility] 05-14-2022 15:39-0400 Diastolic blood pressure 77 mm[Hg] Alexa Mckee [facility] 05-14-2022 15:39-0400 Heart rate 83 /min Alexa Husseinan [facility] 05-14-2022 15:39-0400 SaO2% (BldA) [Mass fraction] 98 % Alexa Husseinan [facility] 05-14-2022 15:39-0400 Systolic blood pressure 119 mm[Hg] Alexa Husseinan [facility] 05-08-2022 10:23-0400 Diastolic blood pressure 72 mm[Hg] Sreedhar NILL [facility] 05-08-2022 10:23-0400 Heart rate 61 /min Sreedhar NILL [facility] 05-08-2022 10:23-0400 Respiratory rate 22 /min Sreedhar NILL [facility] 05-08-2022 10:23-0400 SaO2% (BldA) [Mass fraction] 99 % Sreedhar NILL [facility] 05-08-2022 10:23-0400 Systolic blood pressure 109 mm[Hg] Sreedhar NILL [facility] 05-08-2022 10:10-0400 Diastolic blood pressure 72 mm[Hg] Sreedhar NILL [facility] 05-08-2022 10:10-0400 Heart rate 61 /min Sreedhar NILL [facility] 05-08-2022 10:10-0400 Respiratory rate 18 /min Sreedhar NILL [facility] 05-08-2022 10:10-0400 SaO2% (BldA) [Mass fraction] 98 % Sreedhar NILL [facility] 05-08-2022 10:10-0400 Systolic blood pressure 100 mm[Hg] Sreedhar NILL [facility] 05-08-2022 10:05-0400 Diastolic blood pressure 69 mm[Hg] Sreedhar NILL [facility] 05-08-2022 10:05-0400 Heart rate 69 /min Sreedhar NILL [facility] 05-08-2022 10:05-0400 Respiratory rate 21 /min Sreedhar NILL [facility] 05-08-2022 10:05-0400 SaO2% (BldA) [Mass fraction] 97 % Sreedhar NILL [facility] 05-08-2022 10:05-0400 Systolic blood pressure 106 mm[Hg] Sreedhar NILL [facility] 05-08-2022 09:58-0400 Body temperature 97.52 [degF] Sreedhar NILL [facility] 05-08-2022 09:16-0400 Blood Pressure Location Sreedhar NILL [facility] 05-08-2022 09:16-0400 Body temperature 96.8 [degF] Sreedhar NILL [facility] 05-08-2022 09:16-0400 Respiratory rate 20 /min Sreedhar NILL [facility] 04-27-2022 15:22-0400 Blood Pressure Location Sreedhar NILL [facility] [place] 04-27-2022 15:22-0400 Diastolic blood pressure 75 mm[Hg] Sreedhar NILL [facility] [place] 04-27-2022 15:22-0400 Heart rate 81 /min Sreedhar NILL [facility] [place] 04-27-2022 15:22-0400 Respiratory rate 16 /min Sreedhar NILL [facility] [place] 04-27-2022 15:22-0400 Systolic blood pressure 112 mm[Hg] Sreedhar NILL [facility] [place] 03-17-2022 14:46-0400 Blood Pressure Location Arley Brito [facility] 03-17-2022 14:46-0400 Diastolic blood pressure 68 mm[Hg] Arley Brito [facility] 03-17-2022 14:46-0400 Heart rate 64 /min Arley Brito [facility] 03-17-2022 14:46-0400 Respiratory rate 18 /min Arley Brito [facility] 03-17-2022 14:46-0400 SaO2% (BldA) [Mass fraction] 97 % Arley Brito [facility] 03-17-2022 14:46-0400 Systolic blood pressure 106 mm[Hg] Arley Brito [facility] Encounters Encounter Date Encounter Type Care Provider Facility Start: 05-19-2024 End: 05-19-2024 ambulatory Amy Arreguin Facility:[facility] Start: 05-19-2024 End: 05-19-2024 Patient encounter procedure Amy Arreguin [facility] Start: 04-04-2024 End: 04-04-2024 ambulatory JHONY HOWE Not Available Start: 03-30-2024 ambulatory CAREY TOWNSEND Faci lity:[facility] Start: 02-17-2024 End: 02-17-[address] [facility] Work Phone: Start: 02-17-2024 End: 02-17-2024 Departed Referred DPM Carey Townsend Work Phone: [facility] Start: 02-12-2024 End: 02-12-2024 ambulatory Eliceo Coleman Facility:[facility] Start: 02-12-2024 End: 02-12-2024 Patient encounter procedure Eliceo Coleman [facility] Care Start: 11-25-2023 End: 11-25-2023 ambulatory CAREY COURTNEY Not Available Start: 08-23-2023 End: 08-23-2023 ambulatory CAREY Melanie LESLEY Facility:[facility] Start: 08-23-2023 End: 08-23-2023 Patient encounter procedure CAREY TOWNSEND [facility] Start: 08-10-2023 End: 08-10-2023 Emergency department patient visit Remington Espitia [facility] Start: 05-16-2023 End: 05-16-2023 Emergency department patient visit Remington Espitia [facility] Start: 05-08-2023 End: 05-08-2023 Patient encounter procedure Eliceo Coleman [facility] Start: 11-04-2022 End: 11-04-2022 Patient encounter procedure Carey Courtney [facility] Start: 10-01-2022 End: 10-01-2022 Lab Drop off Eduarda Gaines [facility] Start: 06-22-2022 End: 06-22-2022 Patient encounter procedure Alexa Mckee [facility] Start: 06-09-2022 End: 06-09-2022 Patient encounter procedure Carey Courtney [facility] Start: 05-27-2022 End: 05-27-2022 Emergency department patient visit Remington Espitia [facility] Start: 05-26-2022 End: 05-26-2022 Emergency department patient visit Vishal Christina [facility] Start: 05-14-2022 End: 05-14-2022 Patient encounter procedure Alexa Mckee [facility] Start: 05-08-2022 End: 05-08-2022 Patient encounter procedure Sreedhar ARENAS [facility] Start: 04-27-2022 End: 04-27-2022 Patient encounter procedure Sreedhar ARENAS [facility] [place] Start: 04-23-2022 End: 04-23-2022 Patient encounter procedure Carly TERRY [facility] Start: 03-23-2022 End: 03-23-2022 Patient encounter procedure Arley Brito [facility] Start: 03-19-2022 End: 04-30-2022 Pre-admission assessment Arley Brito [facility] Start: 03-17-2022 End: 05-05-2022 Pre-admission assessment Dania MCINTYRE [facility] Start: 03-17-2022 End: 03-17-2022 Patient encounter procedure Arley Brito [facility] Procedures Date Procedure Procedure Detail Performing Clinician Start: 05-08-2022 Colonoscopic polypectomy Sreedhar ESPARZAMarycruz Start: 10-22-2015 Left shoulder scope Rya francisco j Brito Appendectomy Arley Chocarol rson essure Arley Gonzalez rson Immunizations Immunization Date Immunization Notes Care Provider Fa cili 05-26-2022 tetanus toxoid, redu michoac[place] diphtheria toxoid, and acellular pertussis vaccine, adsorbed Vishal Carri [facility] Comment on above: Result Comment: Left deltoid Result Comment: Left deltoid 08-26-2021 SARS-CoV-2 (COVID-19 ) mRNA-1273 vaccine Elieco Jared [facility] 11-07-2020 SARS-CoV-2 (COVID-19 ) mRNA-1273 vaccine Eliceo Jared [facility] 10-10-2020 SARS-CoV-2 (COVID-19 ) mRNA-1273 vaccine Eliceo Jared [facility] 07-11-2020 influenza virus vaccine, unspecified formulation Eliceo Coleman [facility] Payers Date Payer Category Payer Self-pay 2022 Unknown [id number] 1975 Unknown [id number] 2.16.84 [id number] 1975 Unknown [id number] 2.16.84 [id number] 1975 Unknown [id number] 2.16.8 [id number] 1975 Unknown [id number] 2.16.8 [id number] 1975 Unknown [id number] 2.16.8 [id number] 1975 Unknown [id number] 2.16.8 [id number] 1975 Unknown [id number] 2.16.8 [id number] Social History Date Type Detail Facility Tobacco smoking status No Smokin g Status Entered [facility] Sex Assigned At Female [facility] Start: 04-27-2022 End: 02-12-2024 Never smoked tobacco (finding) [facility] [place] Never [facility] [place] Start: 1975 Sex Assigned At Female F [facility] Functional Status Date Assessment Result Facility 02-12-2024 Functional Status N/A [facility] 08-10-2023 Functional Status N/A [facility] 05-16-2023 Functional Status N/A [facility] 05-08-2023 Functional Status N/A [facility] 06-22-2022 Functional Status No [facility] 05-27-2022 Functional Status N/A [facility] 05-26-2022 N/A [facility] 05-14-2022 Functional Status No [facility] 05-08-2022 Functional Status N/A [facility] 04-27-2022 N/A [facility] [place] 03-17-2022 Functional Status N/A [facility] Clinical Notes 04-14-2020 to 08-10-2023 Note Date [...] provider may recommend RICE therapy along with vhiv-ucd-yhbckwz pain medicines to manage your pain. Exercises [...] water aerobics, and biking. General instructions Take paag-aut-ncktimr and prescription medicines only as told by [...] affected foot. This is called RICE therapy. Zgbj-fkf-odyuidk medicines can also be used to manage pain. This information is not intended to replace advice given to you by your health care provider. Make sure you discuss any questions you have with your health care provider. Document Revised: 12/16/2020 Document Reviewed: 12/16/2020 Elsevier Patient Education 2022 [employer] Follow Up Care 08/10/2023 11:53:44 With:CAREY TOWNSEND DPM Address: When:2 to 4 days Comments:Call today to schedule your follow up With:Carey Courtney MD, [facility] Address: [address] [place] [id number] When:08/13/[address] [facility] 08-10-2023 Evaluation + Plan note Extrac brittany from: Title:ED Note Author:Amy Hernandez PA-C Date :08/10/23 1. Plantar fasciitis, left ( M72.2: Plantar fascial fibromatosis) Ordered: diclofenac topical, 2 gm, Topical, QID for pain for 7 day(s), 100 gm, Refill(s) 0, not to exceed 8 grams/day/single joint of upper extremities, [facility], 173, cm, 08/10/23 12:00:00 EST, Height/Length Dosing, 100, kg, 08/10/23 12:00:00 EST, Weight Dosing predniSONE, See Instructions, 6 PO x 3 days then 4 PO x 5 days then 2 PO x 5 days then 1 PO x 5 days then 1/2 PO x 5 days, # 58 tab(s), Refills(s) 0, Pharmacy: [facility], 173, cm, 08/10/23 12:00:00 EST, Height/Length Dosing, 100, kg, 08/10/23 12:... Orders: ketorolac, 15 mg = 0.5 mL, Injection, IntraMuscular, Once, Stop date 08/10/23 14:06:00 EST, STAT, Start date 08/10/23 14:06:00 EST, 08/10/23 14:06:[address] [facility]09-03-2023 Hospital Discharge instructions Patient Education 05/16/2023 [...] condition. Follow these instructions at home: Take ldkk-ptc-itygiar and prescription medicines only as told by [...] and water are not available, use hand fire warden. Avoid contact with people who have cold [...] it is easier to cough up. Take lwxx-xai-ecbphow and prescription medicines only as told by [...] provider. Document Revised: 12/31/2021 Document Reviewed: 12/31/2021 [employer] Patient Education 2022 [employer]. Follow Up Care 05/16/2023 15:03:49 With:Carey Courtney Address: [address] [place] [id number] Business (1) When:05/19/2023 16:16:58 Comments:Call the office [...] legs, or any new or worsening symptoms. [facility]09-03-2023 Evaluation + Plan noteExtracted from: Title:ED Note Author:Remington Espitia DO Date: Acute bronchitis (J20.9: Acu te bronchitis, unspecified) Orders: albuterol, 2 puff(s), Inhalation, q4hr Cough and Congestion, 1 EA, Refill(s) 0, [facility], 172, cm, 05/16/23 15:12:00 EDT, Height/Length Dosing, 115.5, kg, 05/16/23 15:12:00 EDT, Weight Dosing brompheniramine/dextromethorphan/PSE, 5 mL, Oral, QID for cold symptoms, 200 mL, Refill(s) 0, [facility], 172, cm, 05/16/23 15:12:00 EDT, Height/Length Dosing, 115.5, kg, 05/16/23 15:12:00 EDT, Weight Dosing XR Chest 2 Views Future Scheduled Tests Radiology* CT Venogram Abdomen and Pelvis w/ Contrast 06/22/[address] [facility]08-26-2023 Hospital Discharge instructions Patient Education 05/08/2023 [...] condition. Follow these instructions at home: Take chly-edb-axqkkgh and prescription medicines only as told by [...] and water are not available, use hand fire warden. Avoid contact with people who have cold [...] it is easier to cough up. Take nddg-dur-wownfzf and prescription medicines only as told by [...] provider. Document Revised: 12/31/2021 Document Reviewed: 12/31/2021 [employer] Patient Education 2022 [employer]. 05/08/2023 14:02:38 BMI for Adults BMI for [...] numbers. This can be done either in [place] ([place] or metric measurements. Note that charts and online BMI calculators are available to help you find your BMI quickly and easily without having to do these calculations yourself. To calculate your BMI in [place] ([place] measurements: 1.Measure your weight in pounds [...] Centers for Disease Control and Prevention: www.cdc.gov [place] Heart Association: www.heart.org National Heart, Lung, and Blood [place]: www.nhlbi.nih.gov Summary Body mass index (BMI) is a number that is calculated from a person's weight and height. BMI may help estimate how much of a person's weight is composed of fat. BMI can help identify thosewho may be at higher risk for certain medical problems. BMI can be measured using [place] measurements or metric measurements. BMI charts are used to identify whether you are underweight, normal weight, overweight, or obese. This information is not intended to replace advice given to you by your health care provider. Make sure you discuss any questions you have with your health care provider. Document Revised: 05/22/2020 Document Reviewed: 03/29/2020 Intucell Patient Education 2022 [employer]. Follow Up Care 05/08/2023 13:11:29 With:Dusty ALVAREZ, KADE Benson Address: [address] [place], [place] [id number] When: Unknown [facility] 10-10-2022 Evaluation + Plan note Future Scheduled Tests Radiology* CT Venogram Abdomen and Pelvis w/ Contrast 06/22/22 [facility] 09-14-2022 Hospital Discharge instructions Patient Education 05/27/2022 12:47:15 Sutures, Leilani, or Adhesive Wound Closure, Oqwg-np-Ljoh Sutures, Mahanoy Plane, or Adhesive Wound Closure Doctors use stitches [...] skin reaction that can lead to infection. Mahanoy Plane Mahanoy Plane are often used to close surgical cuts (incisions). To use leilani, your doctor: Holds the edges of your wound close together. Places a staple across the wound. Uses a tool to secure the staple to the skin. Repeats this with as many leilani as needed. Mahanoy Plane are faster to use than sutures, and they cause less reaction from your skin. Mahanoy Plane need to be removed using a tool that bends the leilani away from your skin. Follow these instructions at home: Medicines Take holp-xbl-hacatyn and prescription medicines only as told by [...] cannot use soap and water, use hand fire warden. Do not try to remove your wound [...] 06/27/2010 Document Revised: 08/12/2018 Document Reviewed: 07/07/2018 Intucell Patient Education 2020 [employer]. 05/27/2022 12:47:15 Wrist Sprain, Adult Wrist Sprain, [...] your health care provider. General instructions Take acnv-cfe-tdhhasy and prescription medicines only as told by [...] 05/03/2015 Document Revised: 08/12/2018 Document Reviewed: 03/18/2017 Intucell Patient Education 2020 [employer]. Follow Up Care 05/27/2022 11:11:30 With:[facility]: [facility] [phone] Address:Unknown When:05/30/2022 12:35:[address] [facility]09-14-2022 Evaluation + Plan noteExtracted from: Title:ED Note Author:Amadeo MARTINEZ, Jareth Watt te:05/27/22 Wrist sprain (S63.509A: Unsp ecified sprain of unspecified wrist, initial encounter) Orders: Splint Application Wrist XR Wrist 3+ Views Left Future Appointments Appointment Date:05/28/2022 03:30:00 PM Scheduled Provider:Yancy MOHAMUD CNP Location:[facility] Occupational Health Appointment Type:IH ER Follow up BWC (FT) Appointment Date:06/04/2022 08:00:00 AM Scheduled Provider: [facility] Appointment Type:US Duplex Procedures (FT) Appointment Date:06/22/2022 11:30:00 AM Scheduled Provider:Alexa Mckee MD Location:.[facility] Appointment Type:Vascular Follow Up (FT) Future Scheduled Tests Laboratory* B-Type Natriuretic Peptide 03/17/22 * Comprehensive Metabolic Panel 03/17/22 * Lipid Panel 03/17/22 Radiology* US LE Venous Duplex Insufficiency Bilat 06/04/22 * US LE Venous Duplex Bilateral 03/23/[address] [facility]09-13-2022 Hospital Discharge instructions Patient Education 05/26/2022 [...] Ask your health care provider for a folf-wd-ivua plan for gradually returning to activities. Ask [...] your friends, family, a trusted colleague, and tipple worker about your injury, symptoms, and restrictions. Have them watch for any new or worsening problems. General instructions Take gxuv-laq-bclniza and prescription medicines only as told by [...] 08/30/2006 Document Revised: 09/27/2019 Document Reviewed: 09/22/2019 [employer]ucell Patient Education 2020 [employer]. 05/26/2022 16:32:15 Concussion, Adult Concussion, Adult A [...] gradually returning to activities. General instructions Take xgkj-axx-ulteipx and prescription medicines only as told by [...] higher risk of serious complications. Tell your tipple worker, teachers, school nurse, school counselor, math coach, or senior trainer about your injury, symptoms, and restrictions. [...] 11/19/2004 Document Revised: 04/20/2019 Document Reviewed: 04/20/2019 [employer]ucell Patient Education 2020 [employer]. 05/26/2022 16:32:15 Abrasion Abrasion An abrasion is [...] instructions at home: Medicines Take or apply suek-ejk-pmgyfkh and prescription medicines only as told by [...] 06/09/2006 Document Revised: 08/12/2018 Document Reviewed: 04/13/2018 [employer]ell Patient Education 2020 [email or web address] Follow Up Care 05/26/2022 14:55:06 With:Carey Courtney Address: [place] [address] Business (1) When:05/29/2022 15:48:24 Comments:Follow-up with your primary care provider in 3 to 5 days. If symptoms worsen, do not improve, or new symptoms arise please report back to emergency department for further evaluation. [facility]09-13-2022 Evaluation + Plan noteExtracted from: Title:ED [...] Procedures (FT) Appointment Date:06/22/2022 11:30:00 AM Scheduled Provider:Rafi ALVAREZ, Alexa Quiñones Location:FT[facility]Vascular Clinic Appointment Type:Vascular Follow Up (FT) Future Scheduled Tests Laboratory* B-Type Natriuretic Peptide 03/17/22 * Comprehensive Metabolic Panel 03/17/22 * Lipid Panel 03/17/22 Radiology* US LE Venous Duplex Insufficiency Bilat 06/04/22 * US LE Venous Duplex Bilateral 03/23/[address] [facility]08-26-2022 Evaluation + Plan noteExtracted from: Title:Post-anesthesia - General Author:Thomas Ratliff DO Date:05/08/22 Plan Transfer/ Discharge: Condition stable. Extracted from: Title:Pre-anesthesia - Endoscopy Author:Thomas Pizarro Jr., DO Date:05/08/22 Plan [place] Society of Anesthesiologists (ASA) physical status classification: [...] Panel 03/17/22 * Lipid Panel 03/17/22 Radiology* LE Venous Duplex Bilateral 03/23/[address] [facility]08-26-2022 Hospital Discharge instructions Patient Education 05/08/2022 10:07:53 Colonoscopy, Care After Surgery [place] (CUSTOM) Colonoscopy Care After Surgery Please read the instructions outlined below and refer to this sheet in the next few weeks. These discharge instructions provide you with general information on caring for yourself [facility] Your doctor may also give you specific [...] Up Care 04/27/2022 15:46:02 With:Sreedhar ARENAS Address: [address] [place] [address] [address] [phone] Business (1) When:7 to [address] [facility]07-05-2022 Evaluation + Plan note Future Scheduled Tests Laboratory* B-Type Natriuretic Peptide 03/17/22 * Comprehensive Metabolic Panel 03/17/22 * Lipid Panel 03/17/22 Radiology* CT Venogram Abdomen and Pelvis w/ Contrast 06/22/22 * US LE Venous Duplex Bilateral 03/23/[address] [facility]08-22-2020 Evaluation + Plan note Future Appointments Appointment Date:04/29/2022 01:00:00 PM Scheduled Provider: Location:.[facility] Appointment Type:CV Echo (FT) Appointment Date:05/04/2022 10:00:00 AM Scheduled Provider:Dania MCINTYRE CNP Location:FT.Cardiology Clinic Appointment Type:Cardiology Follow Up (FT) Appointment Date:05/08/2022 10:00:00 AM Scheduled Provider: Location:[facility] Appointment Type:Surgery FT Appointment Date:05/14/2022 03:30:00 PM Scheduled Provider:Alexa Mckee MD Location:FT.[facility] Clinic Appointment Type:Vascular New Patient (FT) Future Scheduled Tests Laboratory* B-Type Natriuretic Peptide 03/17/22 * Comprehensive Metabolic Panel 03/17/22 * Lipid Panel 03/17/22 Radiology* Echo Transthoracic Complete 04/29/22 * US LE Venous Duplex Bilateral 03/23/22 [facility] [place] 08-02-2020 Evaluation + Plan note Future Appointments Appointment Date:04/13/2022 01:00:00 PM Scheduled Provider: [facility] App[facility] Type:CV Echo (FT) Appointment Date:04/14/2022 03:30:00 PM Scheduled Provider:Dania MCINTYRE CNP [facility] Type:Cardiology Follow Up (FT) Future Scheduled Tests Laboratory* B-Type Natriuretic Peptide 03/17/22 * Comprehensive Metabolic Panel 03/17/22 * Lipid Panel 03/17/22 Radiology* Echo Transthoracic Complete 04/13/22 * US LE Venous Duplex Bilateral 03/23/[address] [facility] [address] Future Appointments Appointment Date:04/14/2022 03:30:00 PM Scheduled Provider:Dania MCINTYRE CNP [facility] Type:Cardiology Follow Up (FT) Future Scheduled Tests Laboratory* B-Type Natriuretic Peptide 03/17/22 * Comprehensive Metabolic Panel 03/17/22 * Lipid Panel 03/17/[address] [facility] [facility] Future Appointments Appointment Date:04/27/2022 03:00:00 PM Scheduled Provider:Sreedhar ARENAS MD Location:[facility] Appointment Type:[place] [id number] Appointment Date:04/29/2022 01:00:00 PM Scheduled Provider: [facility] Appointment Type:CV Echo (FT) Appointment Date:05/04/2022 10:00:00 AM Scheduled Provider:Dania MCINTYRE CNP [facility] Type:Cardiology Follow Up (FT) Future Scheduled Tests Laboratory* B-Type Natriuretic Peptide 03/17/22 * Comprehensive Metabolic Panel 03/17/22 * Lipid Panel 03/17/22 Radiology* Echo Transthoracic Complete 04/29/22 * US LE Venous Duplex Bilateral 03/23/[address] [facility] note Future Appointments Appointment Date:05/04/2022 10:00:00 AM Scheduled Provider:Dania MCINTYRE CNP [facility] Appointment Type:Cardiology Follow Up (FT) Appointment Date:05/08/2022 10:00:00 AM Scheduled Provider: Location:[facility] Appointment Type:Surgery FT Appointment Date:05/14/2022 03:30:00 PM Scheduled Provider:Alexa Mckee MD [facility] Type:Vascular New Patient (FT) Future Scheduled Tests Laboratory* B-Type Natriuretic Peptide 03/17/22 * Comprehensive Metabolic Panel 03/17/22 * Lipid Panel 03/17/22 Radiology* US LE Venous Duplex Bilateral 03/23/[address] [facility] Future Appointments Appointment Date:05/08/2022 10:00:00 AM Scheduled Provider: Location:[facility] Appointment Type:Surgery FT Appointment Date:05/14/2022 03:30:00 PM Scheduled Provider:Alexa Mckee MD Location:.[facility] Clinic Appointment Type:Vascular New Patient (FT) Future Scheduled Tests Laboratory* B-Type Natriuretic Peptide 03/17/22 * Comprehensive Metabolic Panel 03/17/22 * Lipid Panel 03/17/22 Radiology* US LE Venous Duplex Bilateral 03/23/[address] Future Appointments Appointment Date:05/21/2022 03:40:00 PM Scheduled Provider:Sreedhar ARENAS MD Location:[facility] Appointment Type: Post Op 15 Appointment Date:06/22/2022 11:30:00 AM Scheduled Provider:Alexa Mckee MD [facility] Appointment Type:Vascular Follow Up (FT) Future Scheduled Tests Laboratory* B-Type Natriuretic Peptide 03/17/22 * Comprehensive Metabolic Panel 03/17/22 * Lipid Panel 03/17/22 Radiology* US LE Venous Duplex Bilateral 03/23/[address] Future Appointments Appointment Date:06/22/2022 11:30:00 AM Scheduled Provider:Alexa Mckee MD [facility] App[facility]ment Type:Vascular Follow Up (FT) Future Scheduled Tests Laboratory* B-Type Natriuretic Peptide 03/17/22 * Comprehensive Metabolic Panel 03/17/22 * Lipid Panel 03/17/22 Radiology* US LE Venous Duplex Bilateral 03/23/[address] Future Appointments Appointment Date:05/22/2024 01:45:00 PM Scheduled Provider: Location:FT.PHYSICAL [place] Appointment Type:PT 45 (FT) Appointment Date:05/26/2024 03:15:00 PM Scheduled Provider: Location:[place]ICAL [place] Appointment Type:PT Re-Eval 45 (FT) [facility] Evaluation noteNo assessment information available [facility] Work Phone: Hospital course Narrative No data available for this section [facility] No data available for this section [facility] No data available for this section [facility] Summary Purpose Family History No Family History Records Found Advance Directives No Advanced Directives Records FoundNo Advanced Directives Records FoundNo Advanced Directives Records Found Additional Source Comments Care Team (unrecognized sect ion and content) Personnel Name: Dusty ALVAREZ, Carey Navarro Address: Address: [address] [place] [address] Team Status: Inactive Member Role Status Dates Carey Townsend DPM MS Attending Provider Active Start: February 17, 2024 End: February 17, 2024 Goals (unrecognized section and content) Goals may be documented in a n alternate section INFORMATION SOURCE (unrecogn ized section and content) DATE CREATED AUTHOR 03/03/2024 [facility] DATE CREATED AUTHOR AUTHOR'S ORGANIZ ATION 04/06/2024 [facility] EPIC DATE CREATED AUTHOR AUTHOR'S ORGANIZ ATION 05/20/2024 [facility] FOR RECORDS PERTAINING TO PATIENTS WHO [...] BE BASED ON THE PRIMARY CLINICAL RECORDS. [facility] [employer] [facility]. provides no warranty or guarantee of the accuracy or completeness of information in this document.
== END 2024-05-23 13:11 | disposition home or self-care (01) ==
LOC: EC 13:10
PROVIDERS: Family Provider Family Medicine; Visit Provider Podiatrist Foot & Ankle Surgery
DX: M79.672 Pain in left foot (principal); Z98.890 Other specified postprocedural states
CPT/HCPCS: 73630

== ENCOUNTER 2024-06-15 13:31 | Outpatient (OUT) | payer OTHER, SELFPAY ==
--- NOTE | 2024-06-15 | XR_ITS ---
The [address] [address] Patient Name: JAVIER OROSCO MRN: [id number] date: 1975 Sex: F Assigned Patient Location: Current Patient Location: Accession/Order Number: [id number] Exam Date: 06/15/2024 13:55 Report Date: 06/16/2024 06:19 At the request of: ELVIS EVANGELISTA Procedure: XR foot LT min 3V PROCEDURE: XR foot LT min 3V HISTORY: LEFT FOOT PAIN COMPARISON: XR foot left 05/23/2024 FINDINGS: BONES:Prior calcaneal osteotomy and fusion via 2 lag screws. Osteotomy and bone staple repair of proximal first metatarsal. No appreciable hardware fracture loosening. No bone fracture or dislocation. 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 SOFT TISSUES:No visible soft tissue swelling. EFFUSION:None visible. OTHER: Negative. XR/XR foot LT min 3V IMPRESSION: 1. Stable surgical changes and mild degenerative changes. 2. No appreciable acute abnormality. Electronically authenticated by: YASMINE TRUJILLO Date: 06/16/2024 06:19
== END 2024-06-15 13:32 | disposition home or self-care (01) ==
LOC: EC 13:31
PROVIDERS: Family Provider Family Medicine; Visit Provider Physician Assistant
DX: M79.672 Pain in left foot (principal); Z98.890 Other specified postprocedural states
CPT/HCPCS: 73630

== ENCOUNTER 2024-08-23 15:01 | Outpatient (OUT) | payer OTHER, SELFPAY ==
--- NOTE | 2024-08-23 | XR_ITS ---
The [address] [address] Patient Name: JAVIER OROSCO MRN: [id number] date: 1975 Sex: F Assigned Patient Location: [facility] Current Patient Location: [facility] Accession/Order Number: [id number] Exam Date: 08/23/2024 15:14 Report Date: 08/23/2024 16:09 At the request of: CAREY SUTTON Procedure: XR ankle LT min 3V EXAM: XR ankle LT min 3V HISTORY: LEFT ANKLE PAIN COMPARISON: 08/18/2023 TECHNIQUE: 3 views of left ankle were obtained FINDINGS: There is no evidence of an acute fracture or dislocation. The joint spaces and mortise are intact. No osteochondral injury is identified. 2 screws are seen in the calcaneus, and an osteophyte arises from the insertion site of the Achilles tendon. Soft tissue swelling is seen diffusely about the ankle, more prominent laterally. XR/XR ankle LT min 3V IMPRESSION: No acute fracture or dislocation. The joint spaces are intact. Interval surgery to the calcaneus with [address] Otherwise, the overall appearance is unchanged. Electronically authenticated by: CAREY NOEL Date: 08/23/2024 16:09
--- NOTE | 2024-08-23 | XR_ITS ---
The [address] [address] Patient Name: JAVIER OROSCO MRN: [id number] date: 1975 Sex: F Assigned Patient Location: [facility] Current Patient Location: [facility] Accession/Order Number: [id number] Exam Date: 08/23/2024 15:04 Report Date: 08/23/2024 16:11 At the request of: CAREY SUTTON Procedure: XR foot LT min 3V EXAM: XR foot LT min 3V HISTORY: LEFT FOOT PAIN COMPARISON: 06/15/2024 TECHNIQUE: 3 views of left foot were obtained. FINDINGS: There is no evidence of an acute fracture or dislocation. A remote fracture fragment is seen involving the medial sesamoid bone at the first metatarsal bone. A staple is seen at the base of the first metatarsal bone. 2 screws are seen in the posterior calcaneus. There degenerative changes seen at the interphalangeal joint of the great toe. The joint space are otherwise intact throughout. Mild soft tissue swelling of the foot is noted. XR/XR foot LT min 3V IMPRESSION: No acute fracture or dislocation. Degenerative changes are present, as described. The overall appearance of the foot has not changed significantly. Electronically authenticated by: CAREY NOEL Date: 08/23/2024 16:11
== END 2024-08-23 15:02 | disposition home or self-care (01) ==
LOC: RAD 15:01
PROVIDERS: Family Provider Family Medicine; Visit Provider Podiatrist Foot & Ankle Surgery
DX: M79.672 Pain in left foot (principal); M25.572 Pain in left ankle and joints of left foot; M25.475 Effusion, left foot
CPT/HCPCS: 73610; 73630